=== PATIENT | male | born 1975 | race Caucasian/White ===

== ENCOUNTER → 2020-05-26 14:41 | Outpatient (BNVA) | payer BC, SELFPAY | PROVIDERS: PCP Internal Medicine; Visit Provider Internal Medicine Cardiovascular Disease | DX: R07.89 Other chest pain (principal); R06.00 Dyspnea, unspecified | CPT/HCPCS: 93005 ==

== ENCOUNTER 2020-06-10 15:07 | Outpatient (REF) | payer BC, SELFPAY ==
[2020-06-10 15:31] LABS: MANUAL DIFF FLAG NO
[2020-06-10 15:35] LABS: Basophils Absolute Auto 0.1 X10*3/uL (0.0-0.2); Basophils Percent Auto 0.5 % (0-2); Eosinophils Absolute Auto 0.5 X10*3/uL (0.0-0.4); Eosinophils Percent Auto 4.4 % (0-4); Hematocrit 44.7 % (42-52); Hemoglobin 15.5 g/dl (14.0-18.0); Imm Gran Abs Auto 0.04 X10*3/uL (0.00-0.03); Imm Gran Pct Auto 0.3 % (0.0-0.4); Lymphocytes Absolute Auto 4.6 X10*3/uL (1.2-4.9); Lymphocytes Percent Auto 36.8 % (20-40); Mean Corpuscular HGB Conc 34.7 g/dl (31.0-36.0); Mean Corpuscular Hemoglobin 30.5 pg (27.0-33.0); Mean Platelet Volume 9.5 fL (9.4-12.4); Monocytes Absolute Auto 0.9 X10*3/uL (0.1-1.2); Monocytes Percent Auto 6.9 % (2-11); Neutrophils Absolute Auto 6.3 X10*3/uL (2.0-8.3); Neutrophils Percent Auto 51.1 % (45-73); Platelet Count 330 X10*3/uL (160-400); Red Blood Count 5.08 X10*6/uL (4.60-5.80); White Blood Count 12.4 X10*3/uL (4.8-10.8)
[2020-06-10 15:57] LABS: Alanine Aminotransferase 62 U/L (0-40); Albumin Level 4.8 g/dL (3.5-5.0); Alkaline Phosphatase 47 U/L (39-117); Anion Gap 13 (12-20); Aspartate Amino Transferase 29 U/L (5-37); Bilirubin Total 0.5 mg/dL (0.0-1.0); Blood Urea Nitrogen 18 mg/dL (9-16); Calcium 9.7 mg/dL (8.4-10.2); Carbon Dioxide 27 mmol/L (22-29); Chloride 106 mmol/L (96-108); Cholesterol 236 mg/dL; Estimated Glomerular Filt Rate > 60; Glucose Random 89 mg/dL (60-115); HDL Cholesterol 42 mg/dL; LDL Cholesterol Calculated 135 mg/dl; Sodium 142 mmol/L (135-145); Total Protein 7.4 g/dL (6.5-8.0); Triglycerides 295 mg/dL
[2020-06-10 16:05] LABS: Glucose Urine UA NEG (NEG); Leukocyte Esterase Urine NEG (NEG); Nitrite Urine NEG (NEG); PH 5.5 (5.0-8.0); Specific Gravity - Urine 1.025 (1.005-1.025); Urine Blood NEG (NEG); Urine Ketones NEG (NEG); Urine Protein NEG (NEG-TRACE)
[2020-06-10 16:18] LABS: Prostate Specific Antigen 0.63 ng/mL (<0.05-4.0)
[2020-06-10 16:46] LABS: Appearance Urine CLEAR; Color Urine YELLOW
== END 2020-06-10 15:08 | disposition home or self-care (01) ==
LOC: HO.LAB 15:07
PROVIDERS: PCP Internal Medicine; Visit Provider Internal Medicine
DX: Z00.00 Encounter for general adult medical examination without abnormal findings (principal); D72.828 Other elevated white blood cell count; E78.00 Pure hypercholesterolemia, unspecified; Z12.5 Encounter for screening for malignant neoplasm of prostate
CPT/HCPCS: 36415; 80053; 80061; 81003; 84153; 85025

== ENCOUNTER 2020-07-10 16:28 | Outpatient (REF) | payer BC, SELFPAY ==
[2020-07-10 17:02] LABS: MANUAL DIFF FLAG NO
[2020-07-10 17:07] LABS: Basophils Percent Auto 0.4 % (0-2); Eosinophils Absolute Auto 0.5 X10*3/uL (0.0-0.4); Eosinophils Percent Auto 4.9 % (0-4); Hematocrit 42.7 % (42-52); Hemoglobin 14.4 g/dl (14.0-18.0); Imm Gran Abs Auto 0.04 X10*3/uL (0.00-0.03); Imm Gran Pct Auto 0.4 % (0.0-0.4); Lymphocytes Absolute Auto 4.4 X10*3/uL (1.2-4.9); Lymphocytes Percent Auto 40.8 % (20-40); Mean Corpuscular HGB Conc 33.7 g/dl (31.0-36.0); Mean Corpuscular Hemoglobin 29.9 pg (27.0-33.0); Mean Corpuscular Volume 88.6 fL (80-98); Mean Platelet Volume 9.7 fL (9.4-12.4); Monocytes Absolute Auto 0.8 X10*3/uL (0.1-1.2); Monocytes Percent Auto 7.1 % (2-11); Neutrophils Percent Auto 46.4 % (45-73); Platelet Count 293 X10*3/uL (160-400); Red Blood Count 4.82 X10*6/uL (4.60-5.80); Red Cell Distribution Width 11.9 % (11.0-16.0); White Blood Count 10.8 X10*3/uL (4.8-10.8)
== END 2020-07-10 16:29 | disposition home or self-care (01) ==
LOC: HO.LAB 16:28
PROVIDERS: PCP Internal Medicine; Visit Provider Internal Medicine
DX: D72.829 Elevated white blood cell count, unspecified (principal)
CPT/HCPCS: 36415; 85025

== ENCOUNTER 2021-06-11 11:53 | Outpatient (REF) | payer BC, SELFPAY ==
[2021-06-11 11:56] LABS: MANUAL DIFF FLAG NO
[2021-06-11 12:08] LABS: Basophils Absolute Auto 0.1 X10*3/uL (0.0-0.2); Basophils Percent Auto 0.5 % (0-2); Eosinophils Absolute Auto 0.5 X10*3/uL (0.0-0.4); Eosinophils Percent Auto 4.5 % (0-4); Hematocrit 44.5 % (42.0-52.0); Imm Gran Abs Auto 0.03 X10*3/uL (0.00-0.03); Imm Gran Pct Auto 0.3 % (0.0-0.4); Lymphocytes Absolute Auto 3.9 X10*3/uL (1.2-4.9); Lymphocytes Percent Auto 37.5 % (20-40); Mean Corpuscular HGB Conc 33.7 g/dl (31.0-36.0); Mean Corpuscular Hemoglobin 29.8 pg (27.0-33.0); Mean Corpuscular Volume 88.5 fL (80.0-98.0); Monocytes Absolute Auto 0.7 X10*3/uL (0.1-1.2); Neutrophils Absolute Auto 5.2 x10*3/uL (2.0-8.3); Neutrophils Percent Auto 50.2 % (45-73); Platelet Count 315 X10*3/uL (160-400); Red Blood Count 5.03 X10*6/uL (4.60-5.80); Red Cell Distribution Width 12.4 % (11.0-16.0); White Blood Count 10.3 X10*3/uL (4.8-10.8)
[2021-06-11 12:09] LABS: Appearance Urine HAZY; Color Urine YELLOW; Glucose Urine UA NEG (NEG); Leukocyte Esterase Urine NEG (NEG); Nitrite Urine NEG (NEG); Specific Gravity - Urine 1.025 (1.005-1.025); Urine Blood NEG (NEG); Urine Ketones NEG (NEG); Urine Protein NEG (NEG-TRACE)
[2021-06-11 12:45] LABS: Alanine Aminotransferase 56 U/L (0-40); Albumin Level 4.5 g/dL (3.5-5.0); Alkaline Phosphatase 48 U/L (39-117); Anion Gap 12 (12-20); Aspartate Amino Transferase 31 U/L (5-37); Bilirubin Total 1.1 mg/dL (0.0-1.0); Blood Urea Nitrogen 20 mg/dL (9-16); Calcium 9.8 mg/dL (8.4-10.2); Carbon Dioxide 28 mmol/L (22-29); Chloride 103 mmol/L (96-108); Cholesterol 208 mg/dL; Estimated Glomerular Filt Rate > 60; Glucose Fasting 93 mg/dL (60-99); HDL Cholesterol 41 mg/dL; LDL Cholesterol Calculated 145 mg/dl; Potassium 4.3 mmol/L (3.3-5.1); Sodium 139 mmol/L (135-145); Total Protein 7.1 g/dL (6.5-8.0); Triglycerides 111 mg/dL
[2021-06-11 13:08] LABS: PSA,Total (Free>4and<10) 0.75 ng/mL (0.00-4.00)
== END 2021-06-11 11:54 | disposition home or self-care (01) ==
LOC: HO.LNP 11:53
PROVIDERS: PCP Internal Medicine; Visit Provider Internal Medicine
DX: Z00.00 Encounter for general adult medical examination without abnormal findings (principal); Z12.5 Encounter for screening for malignant neoplasm of prostate; D72.829 Elevated white blood cell count, unspecified; E78.00 Pure hypercholesterolemia, unspecified; J45.20 Mild intermittent asthma, uncomplicated
CPT/HCPCS: 80053; 80061; 81003; 84153; 85025

== ENCOUNTER 2021-11-12 16:20 | Outpatient (REF) | payer BC, SELFPAY | END 2021-11-12 16:21 | disposition home or self-care (01) | LOC: HO.LNP 16:20 | PROVIDERS: Visit Provider Surgery | DX: L08.9 Local infection of the skin and subcutaneous tissue, unspecified (principal); L72.3 Sebaceous cyst; L02.31 Cutaneous abscess of buttock | CPT/HCPCS: 10060; 87071; 87077; 87186; 87205 ==

== ENCOUNTER 2022-06-17 10:38 | Outpatient (REF) | payer BC, SELFPAY ==
[2022-06-17 10:47] LABS: MANUAL DIFF FLAG NO
[2022-06-17 11:12] LABS: Basophils Absolute Auto 0.1 X10*3/uL (0.0-0.2); Basophils Percent Auto 0.7 % (0-2); Eosinophils Absolute Auto 0.4 X10*3/uL (0.0-0.4); Eosinophils Percent Auto 3.7 % (0-4); Hematocrit 45.2 % (42.0-52.0); Hemoglobin 15.2 g/dl (14.0-18.0); Imm Gran Abs Auto 0.02 X10*3/uL (0.00-0.03); Imm Gran Pct Auto 0.2 % (0.0-0.4); Lymphocytes Percent Auto 40.1 % (20-40); Mean Corpuscular HGB Conc 33.6 g/dl (31.0-36.0); Mean Corpuscular Hemoglobin 29.7 pg (27.0-33.0); Mean Corpuscular Volume 88.5 fL (80.0-98.0); Mean Platelet Volume 10.2 fL (9.4-12.4); Monocytes Absolute Auto 0.8 X10*3/uL (0.1-1.2); Monocytes Percent Auto 8.1 % (2-11); Neutrophils Absolute Auto 4.7 x10*3/uL (2.0-8.3); Neutrophils Percent Auto 47.2 % (45-73); Platelet Count 305 X10*3/uL (160-400); Red Blood Count 5.11 X10*6/uL (4.60-5.80); Red Cell Distribution Width 12.2 % (11.0-16.0)
[2022-06-17 11:17] LABS: Appearance Urine Clear; Color Urine Yellow; Glucose Urine UA Negative (Negative); Leukocyte Esterase Urine Negative (Negative); Nitrite Urine Negative (Negative); Urine Blood Negative (Negative); Urine Ketones Negative (Negative); Urine Protein Negative (Neg-Trace)
[2022-06-17 11:37] LABS: Alanine Aminotransferase 47 U/L (0-40); Albumin Level 4.6 g/dL (3.5-5.0); Alkaline Phosphatase 45 U/L (39-117); Anion Gap 14 (12-20); Aspartate Amino Transferase 28 U/L (5-37); Bilirubin Total 1.1 mg/dL (0.0-1.0); Blood Urea Nitrogen 19 mg/dL (9-16); Calcium 9.4 mg/dL (8.4-10.2); Carbon Dioxide 28 mmol/L (22-29); Chloride 105 mmol/L (96-108); Cholesterol 223 mg/dL; Estimated Glomerular Filt Rate > 60; Glucose Fasting 91 mg/dL (60-99); HDL Cholesterol 44 mg/dL; LDL Cholesterol Calculated 161 mg/dl; Potassium 4.5 mmol/L (3.3-5.1); Sodium 142 mmol/L (135-145); Triglycerides 92 mg/dL
[2022-06-17 11:42] LABS: PSA,Total (Free>4and<10) 0.55 ng/mL (0.00-4.00)
== END 2022-06-17 10:39 | disposition home or self-care (01) ==
LOC: HO.LNP 10:38
PROVIDERS: Visit Provider Internal Medicine
DX: Z00.00 Encounter for general adult medical examination without abnormal findings (principal); Z12.5 Encounter for screening for malignant neoplasm of prostate; D72.829 Elevated white blood cell count, unspecified; E78.00 Pure hypercholesterolemia, unspecified; I10 Essential (primary) hypertension
CPT/HCPCS: 80053; 80061; 81003; 84153; 85025

== ENCOUNTER 2022-06-28 09:22 | Day surgery (SDC) | payer BC, SELFPAY ==
--- NOTE | 2022-06-25 10:44 | P.CONAN_ITS ---
Documented by User: Soco Butts NP 06/25/22 10:45 HPI - Anesthesia Eval Consult details Narrative: 47yo M for Colonoscopy PMF Active Problems Active Problems: All Active Problems (Updated 11/12/21 @ 16:17 by Omar Zimmerman MD) Left buttock abscess (Acute) Chest tightness (Acute) Dyspnea (Acute) Family History Family History Mother Heart disease Ovarian cancer Father CHF (congestive heart failure) Surgical History Surgical History History of back surgery Social History Social History Alcohol intake: current Advance Directives: No Advance Directives Information Provided: Yes Meds Allergies Allergy/AdvReac Type Severity Reaction Status Date / Time No Known Allergies Allergy Verified 11/19/21 15:29 Home Medications Medication Instructions Recorded Confirmed Last Taken Type alpha lipoic acid 50 mg capsule 50 mg PO DAILY 05/26/20 11/19/21 Unknown History astaxanthin 4 mg capsule mg PO 05/26/20 11/19/21 Unknown History coenzyme Q10 10 mg capsule (Co 10 mg PO DAILY 05/26/20 11/19/21 Unknown History Q-10) lutein 20 mg-zeaxanthin 1,000 mcg cap PO 05/26/20 11/19/21 Unknown History capsule multivitamin 1 tab PO DAILY 05/26/20 11/19/21 Unknown History omega-3 fatty acids 1,000 mg 1,000 mg PO DAILY 05/26/20 11/19/21 Unknown History capsule (Fish Oil Concentrate) vitamin K2 100 mcg capsule See Rx Instructions PO DAILY 05/26/20 11/19/21 Unknown History Exam Exam Date and Time: June 25, 2022 1044 Assessment and Plan Assessment Anesthesia Assessment: Chart Reviewed Documented by User: Paulie Chandler MD 06/28/22 10:16 PMFSH Family History Family History Mother Heart disease Ovarian cancer Father CHF (congestive heart failure) Family history of problems with anesthesia: No Surgical History Surgical History History of back surgery History of Problems with Anesthesia: No Social History Social History Alcohol intake: current Advance Directives: No Advance Directives Information Provided: Yes Meds Allergies Allergy/AdvReac Type Severity Reaction Status Date / Time No Known Allergies Allergy Verified 11/19/21 15:29 Home Medications Medication Instructions Recorded Confirmed Last Taken Type alpha lipoic acid 50 mg capsule 50 mg PO DAILY 05/26/20 11/19/21 Unknown History astaxanthin 4 mg capsule mg PO 05/26/20 11/19/21 Unknown History coenzyme Q10 10 mg capsule (Co 10 mg PO DAILY 05/26/20 11/19/21 Unknown History Q-10) lutein 20 mg-zeaxanthin 1,000 mcg cap PO 05/26/20 11/19/21 Unknown History capsule multivitamin 1 tab PO DAILY 05/26/20 11/19/21 Unknown History omega-3 fatty acids 1,000 mg 1,000 mg PO DAILY 05/26/20 11/19/21 Unknown History capsule (Fish Oil Concentrate) vitamin K2 100 mcg capsule See Rx Instructions PO DAILY 05/26/20 11/19/21 Unknown History Exam Airway Mallampati Class: II TM Dist: >3cm Neck ROM: Full Heart: rrr Lungs: cta Assessment and Plan Final Anesthetic Review Family History of Problems with Anesthesia: No History of Problems with Anesthesia: No NPO: Yes ASA Class: II Final Preanesthetic Review: No Changes in Pt Med Stat, Meds/Allgs Chart Reviewed, Consent Obtained/Reviewed and Anes Risks/Benef Reviewed Patient Risk: Low Procedure Risk: Low Anesthetic Plan Anesthetic Plan: MAC: Disposition: Standard PACU
[2022-06-28 10:40] VITALS: BP 136/90; PULSE 65; RESP 16; TEMP 36.4; O2SAT 97; BMI 28.2
[2022-06-28] MEDS: Lactated Ringers 1,000 ML 100 ML IVCONT (10:43)
--- NOTE | 2022-06-28 11:46 | P.BOP_ITS ---
Brief Operative Note Date of Service: 06/28/22 Pre-op diagnosis: Screening Post-op diagnosis: other (Mild diverticulosis) Procedure: Colonoscopy to the cecum and TI Surgeon: Tyree Bravo Anesthesia: MAC Was an Composition Professor used for this Procedure?: No Estimated blood loss (mL): 0 Pathology: none sent Condition: stable Disposition: PACU
[2022-06-28 11:48] VITALS: BP 114/79; PULSE 78; RESP 16; TEMP 36.3; O2SAT 98
[2022-06-28 12:03] VITALS: BP 154/89; PULSE 60; RESP 16; TEMP 36.2; O2SAT 97
--- NOTE | 2022-06-28 12:56 | OP_ITS ---
SURGEON: Tyree Bravo MD INDICATIONS: The patient presents for evaluation of colorectal cancer screening. Full consent has been obtained from him for this, including risks of bleeding and perforation. PREOPERATIVE DIAGNOSIS: Colorectal cancer screening. POSTOPERATIVE DIAGNOSIS: Colorectal cancer screening, mild diverticulosis, and small internal hemorrhoids. PROCEDURE PERFORMED: Colonoscopy to the cecum and terminal ileum. ESTIMATED BLOOD LOSS: COMPLICATIONS: ANESTHESIA: Monitored anesthesia care. ASSISTANTS: SPECIMENS: DESCRIPTION OF PROCEDURE: The patient was placed in the left lateral decubitus position. The digital rectal exam revealed no abnormalities. The Olympus video pediatric colonoscope was then entered into the rectum and advanced easily to the cecum. Once in the cecum, I did identify normal-appearing cecal pouch with appendiceal orifice and a normal-appearing ileocecal valve. The terminal ileum was cannulated and appeared normal. The scope was withdrawn back in the colon. The entire cecum and ileocecal valve appeared normal. The scope was slowly withdrawn assessing all mucosal surfaces carefully. Preparation was excellent. I did not visualize any sign of polyps, colitis nor angiodysplasia. There was a mild amount of sigmoid diverticulosis. In the rectum, the scope was retroflexed visualizing small internal hemorrhoids, but no other pathology. The rectal mucosa appeared normal. The scope was straightened and withdrawn from the patient. He tolerated the procedure well and was returned to the recovery area in stable condition. IMPRESSION: 1. Mild sigmoid diverticulosis. 2. Small internal hemorrhoids. PLAN: Given today's negative exam and negative family history, I would recommend a followup colonoscopy in 10 years for further screening. He will otherwise see me on a p.r.n. basis. MD [facility]/ALICIAL / [phone] MTDDarshana
== END 2022-06-28 12:47 | disposition home or self-care (01) ==
PROVIDERS: PCP Internal Medicine; Visit Provider Internal Medicine
PROC: 0DJD8ZZ Inspection of Lower Intestinal Tract, Via Natural or Artificial Opening Endoscopic (ICD-10-PCS; CPT 45378; principal; 2022-06-28 10:30)
DX: Z12.11 Encounter for screening for malignant neoplasm of colon (principal); K57.30 Diverticulosis of large intestine without perforation or abscess without bleeding; K64.8 Other hemorrhoids; Z87.891 Personal history of nicotine dependence
CPT/HCPCS: 45378

== ENCOUNTER → 2023-05-04 10:27 | Outpatient (REF) | payer BC, SELFPAY ==
--- NOTE | 2023-05-04 10:34 | CA_ITS ---
Acquisition Time: 2023-05-04 11:25:41 Total Exercise Time: 00:09:30 Test Indications: SOB Medications: SEE H Protocol: ERIN Max HR: 155 BPM 90% of Pred: 171 BPM Max BP: 180/078 mmHG Max Work Load: 10.8 METS Exercise stress test exercise 9 min 30 sec of Erin protocol achieving 90% MPHR, without anginal symptoms, without arrhythmias, with normotensive response to exercise, with EKG changes leads 1, 2, 3, aVR, aVF, V3-V6, scooping aVL. Test reviewed with Dr. Brunner. Referred By: Ab Barraza Overread By: Ina Nava
== END ==
LOC: HO.CARD 10:27
PROVIDERS: PCP Internal Medicine; Visit Provider Internal Medicine
DX: R06.02 Shortness of breath (principal)
CPT/HCPCS: 93017

== ENCOUNTER → 2023-05-04 10:34 | Outpatient (BNV) | payer BC, SELFPAY | PROVIDERS: PCP Internal Medicine; Visit Provider Nurse Practitioner | DX: R06.02 Shortness of breath (principal) | CPT/HCPCS: 93016; 93018 ==

== ENCOUNTER 2023-05-11 12:58 | Outpatient (AMB) | payer BC, SELFPAY ==
--- NOTE | 2023-05-11 13:00 | MHC.OFFVIS ---
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 He does not have any history of coronary artery disease or myocardial infarction or cardiomyopathy or in fact anything cardiac issues. He states that for the last 6 months ago or so, he has been noticing some shortness of breath with activity. He is also 'feels his heart', but very vague description. He does not have any clear-cut chest pains or any definitive anginal-type complaints. On occasion, he has noticed a chest pressure but even that is not a truly accurate description. He has never felt this during any physical activity. Otherwise, he states that he is in lot of stress as he is single parent and has 11-year-old daughter. Unclear how much that plays a role. He is on lisinopril that was started few months back because of elevated blood pressure. Again not clear if it is from stress or not. [facility] Surgical History History of back surgery Family History Mother Heart disease Ovarian cancer Father CHF (congestive heart failure) Social History Alcohol intake: current Patient Tobacco Use Status: Former Tobacco user Review of Systems Const Denies chills, Denies daytime sleepiness, Denies fatigue, Denies fever(s), Denies frequent falls, Denies night sweats, Denies snoring, Denies weakness, Denies weight gain and Denies weight loss Eyes Denies loss of vision ENT Denies dizziness and Denies hearing loss Card Denies chest pain, Denies chest pain with activity, Denies syncope, Denies rapid heart rate, Denies edema, Denies claudication, Denies leg edema, Denies lightheadedness, Denies palpitations, Denies dyspnea, Denies dyspnea on exertion and Denies orthopnea Resp Denies cough, Denies excessive phlegm production, Denies dyspnea, Denies dyspnea on exertion, Denies snoring and Denies wheezing GI Denies abdominal pain, Denies hematochezia, Denies change in bowel habits, Denies change in stool character, Denies heartburn, Denies nausea and Denies vomiting Denies hematuria, Denies dysuria and Denies urinary frequency Musc Denies arthralgias, Denies muscle weakness, Denies numbness and Denies tingling Skin/Breast Denies nail changes and Denies rash Neuro Denies Abnormal speech present, Denies dizziness, Denies syncope, Denies frequent falls, Denies loss of vision, Denies memory loss, Denies numbness, Denies tingling and Denies weakness Psych Denies depression and Denies memory loss Endo Denies fatigue and Denies palpitations Aller/Immun Denies wheezing Physical Exam Vital Signs: Last Vital Signs Pulse 72 05/11/23 13:04 BP 118/84 05/11/23 13:04 BMI result Body Mass Index 29.3 Const General: comfortable and no acute distress Orientation/consciousness: patient oriented x3 HEENT Other: Unremarkable Head: Yes normal to inspection Neck Neck: Yes normal visual inspection Chest Chest palpation & inspection: normal inspection of the chest Resp Auscultation: clear to auscultation bilaterally Cardio Palpation: normal PMI Heart sounds: S1 normal heart sound present, S2 normal heart sound present, no gallops, no murmurs and no rubs GI Palpation (GI): Soft to palpation Back/Spine/Pelvis Other: unremarkable Skin General skin exam: no rashes or lesions noted Neuro General: patient oriented x3 Speech: No Abnormal speech present Extrem General: Yes normal to inspection Psych Mental Status: mental status grossly normal Office Procedures EKG Details: EKG with sinus rhythm at 72/Min; nonspecific ST-[place] changes; [place] [id number], Complete Assessment & Plan Assessment & Plan (1) SOB (shortness of breath): Code(s): R06.02 - Shortness of breath (2) Chest pressure: Code(s): R07.89 - Other chest pain Plan In the exercise stress test, he was able to exercise for 9:30 minutes on Avi protocol and reached 10.8 Mets. Reached 90% of max predicted heart rate. Appropriate blood pressure response. No angina. There was ST depression suggestive of ischemia. Overall, good exercise tolerance on Avi treadmill test with no angina but abnormal EKG findings. He needs further workup to assess for any ischemic heart disease. Recommend a coronary CTA. With regard to shortness of breath with activity, unclear reason. We will get an echocardiogram for LV function assessment and any diastolic dysfunction or other abnormalities. While workup is in progress, advised him to cut back on his physical activity and not do anything strenuous. Follow-up after the above. Orders: Orders CA echo transthoracic complete Today I25.10 - Atherosclerotic heart disease of [place] coronary artery without angina pectoris, R06.02 - Shortness of breath, R07.89 - Other chest pain CT Cardiac Coronary Angio Today I25.10 - Atherosclerotic heart disease of [place] coronary artery without angina pectoris, R07.89 - Other chest pain Basic Metabolic Panel Today R07.89 - Other chest pain Coding Level of Care Code New Pt Level 4 (59494) Diagnoses SOB (shortness of breath) R06.02 Chest pressure R07.89 CPT Codes EKG - CPT: 88852-[id number], Complete ([id number])
[2023-05-11 13:04] VITALS: BP 118/84; PULSE 72; BMI 29.3
== END 2023-05-11 13:39 | disposition home or self-care (01) ==
PROVIDERS: PCP Internal Medicine; Visit Provider Internal Medicine
DX: R06.02 Shortness of breath (principal); R07.89 Other chest pain
CPT/HCPCS: 93010; 99204

== ENCOUNTER → 2023-05-11 12:58 | Outpatient (BNVA) | payer BC, SELFPAY | PROVIDERS: PCP Internal Medicine; Visit Provider Internal Medicine | DX: R06.02 Shortness of breath (principal); R07.89 Other chest pain | CPT/HCPCS: 93005 ==

== ENCOUNTER 2023-06-21 11:07 | Outpatient (REF) | payer BC, SELFPAY ==
[2023-06-21 11:11] LABS: MANUAL DIFF FLAG NO
[2023-06-21 11:59] LABS: Basophils Absolute Auto 0.1 X10*3/uL (0.0-0.2); Basophils Percent Auto 0.5 % (0-2); Eosinophils Absolute Auto 0.4 X10*3/uL (0.0-0.4); Hematocrit 44.3 % (42.0-52.0); Hemoglobin 15.2 g/dl (14.0-18.0); Imm Gran Abs Auto 0.02 X10*3/uL (0.00-0.03); Imm Gran Pct Auto 0.2 % (0.0-0.4); Lymphocytes Percent Auto 42.8 % (20-40); Mean Corpuscular HGB Conc 34.3 g/dl (31.0-36.0); Mean Corpuscular Hemoglobin 29.7 pg (27.0-33.0); Mean Corpuscular Volume 86.7 fL (80.0-98.0); Mean Platelet Volume 10.1 fL (9.4-12.4); Monocytes Absolute Auto 0.6 X10*3/uL (0.1-1.2); Monocytes Percent Auto 6.6 % (2-11); Neutrophils Absolute Auto 4.3 x10*3/uL (2.0-8.3); Neutrophils Percent Auto 45.9 % (45-73); Platelet Count 325 X10*3/uL (160-400); Red Blood Count 5.11 X10*6/uL (4.60-5.80); White Blood Count 9.5 X10*3/uL (4.8-10.8)
[2023-06-21 12:06] LABS: Appearance Urine Clear; Color Urine Yellow; Glucose Urine UA Negative (Negative); Leukocyte Esterase Urine Negative (Negative); Nitrite Urine Negative (Negative); PH 5.5 (5.0-9.0); Specific Gravity - Urine 1.025 (1.005-1.025); Urine Blood Negative (Negative); Urine Ketones Negative (Negative); Urine Protein Negative (Neg-Trace)
[2023-06-21 12:11] LABS: Bacteria Urine None Seen (None Seen); Hyaline Casts Urine 0-2 /LPF (0-2); RBC Urine 0-2 /HPF (0-2); Squamous Epithelial Cell Urine 0-2 /HPF (0-2); WBC Urine 0-5 /HPF (0-5)
[2023-06-21 12:25] LABS: PSA,Total (Free>4and<10) 0.59 ng/mL (0.00-4.00)
[2023-06-21 13:16] LABS: Alanine Aminotransferase 47 U/L (0-40); Albumin Level 4.7 g/dL (3.5-5.0); Alkaline Phosphatase 43 U/L (39-117); Anion Gap 15 (12-20); Aspartate Amino Transferase 29 U/L (5-37); Bilirubin Total 0.7 mg/dL (0.0-1.0); Blood Urea Nitrogen 18 mg/dL (9-16); Calcium 9.9 mg/dL (8.4-10.2); Carbon Dioxide 26 mmol/L (22-29); Chloride 105 mmol/L (96-108); Cholesterol 220 mg/dL (<200); Estimated Glomerular Filt Rate > 60; Glucose Fasting 86 mg/dL (60-99); HDL Cholesterol 46 mg/dL (>40); LDL Cholesterol Calculated 153 mg/dL (<100); Potassium 4.5 mmol/L (3.3-5.1); Sodium 141 mmol/L (135-145); Total Protein 7.6 g/dL (6.5-8.0); Triglycerides 106 mg/dL (<150)
== END 2023-06-21 11:08 | disposition home or self-care (01) ==
LOC: HO.LNP 11:07
PROVIDERS: Visit Provider Internal Medicine
DX: Z00.00 Encounter for general adult medical examination without abnormal findings (principal); Z12.5 Encounter for screening for malignant neoplasm of prostate; E78.00 Pure hypercholesterolemia, unspecified; I10 Essential (primary) hypertension; D72.829 Elevated white blood cell count, unspecified
CPT/HCPCS: 80053; 80061; 81001; 84153; 85025

== ENCOUNTER → 2023-06-23 09:25 | Outpatient (REF) | payer BC, SELFPAY ==
--- NOTE | 2023-06-23 09:29 | CA_ITS ---
Transthoracic Echocardiogram Patient (Last, First, Middle): Jose Rivera, Gender: Male Date of : 1975 Age: 48 Procedure Date: 06/23/2023 Procedure Type: Transthoracic Echocardiogram Location: OP Height: 182.88 cm Weight: 100.7 kg BSA: 2.23 m2 Heart Rate: bpm BP: 110 / 74 mmHg Bankman: SUSANA Referring MD: Royer Brunner MD Core Man: Abhinav Guerrier MD Symptoms: I25.10 - Atherosclerotic heart disease of [place] coronary artery without... Study Quality: Adequate with contrast ECG Rhythm: Sinus Conclusions: - Essentially normal study Findings Procedure Information Contrast agent, definity, is being given per protocol without apparent complications. Left Ventricle Normal left ventricular size, thickness, and systolic function. The visually estimated ejection fraction is between 65-70%. Spectral Doppler is indicative of a normal filling pattern. Right Ventricle Normal right ventricular cavity size and systolic function. Atria Both atria are normal in size. Interatrial shunt cannot be excluded. Aortic Valve The aortic valve structure and function is likely normal. There is no aortic valve stenosis. There is no aortic valve regurgitation. Mitral Valve Normal mitral valve structure and function. There is trace mitral valve regurgitation. There is no mitral valve stenosis. Pulmonic Valve The pulmonic valve is likely normal. Tricuspid Valve Normal tricuspid valve structure. There is trace tricuspid valve regurgitation. The right ventricular systolic pressure is normal. The right ventricular systolic pressure is 22 mmHg. Normal right atrial pressure. There is no evidence of pulmonary hypertension. Great Vessels All visible segments of the aorta are normal in size. The pulmonary artery was not well visualized. There is no dilatation of the ascending aorta measuring 3.40 cm. Venous The inferior vena cava is normal in size and collapses greater than 50% with inspiration. Pericardium/Pleural There is no evidence of pericardial effusion. Prior Study Comparison No prior study available for comparison. Measurements 2D Linear Measurements IVSd: 1.34 0.6-0.9/0.6-1.0 cm LVIDd: 4.48 3.9-5.3/4.2-5.9 cm LVIDd Index: 2.01 2.4-3.2/2.2-3.1 cm/m2 LVIDs: 2.42 2.0-3.6 cm LVPWd: 1.03 0.7-1.1 cm LA Diam: 3.50 2.7-3.8/3.0-4.0 cm LAIDs Index: 1.57 1.5-2.3 cm/m2 LV Mass: 240.76 67-162/88-224 g LV Mass Index: 107.97 43-95/49-115 g/m2 LVOT Diam: 2.10 3.0+(-)1.3 cm 2D Systolic Function EF 4C: 65.10 >55% EF 2C: 71.40 >55% EF BiP: 67.70 >55% Mitral Valve MV Pk E: 0.60 MV PK A: 0.60 MV Decel Time: 305.00 E/A: 1.00 E'Lateral: 14.30 E'Medial: 7.18 E/E' Med: 8.30 E/E' Lat: 4.20 PHT: 89.00 MVA PHT: 2.47 Decel Morris: 1.95 Aortic Valve AoV Pk Martin: 1.45 AoV Mn Martin: 1.03 AoV VTI: 0.31 AoV Pk Grad: 8.00 Aov Mn Grad: 5.00 MADELYN Cont.VTI: 2.93 LVOT LVOT Pk Martin: 1.19 LVOT Mn Martin: 0.86 LVOT VTI: 0.26 LVOT Pk Grad: 6.00 LVOT Mn Grad: 3.00 LVOT Diam: 2.10 LVOT Area: 3.46 Diastolic Function MV Pk E: 0.60 MV Pk A: 0.60 E/A: 1.00 E'Medial: 7.18 E/E' Med: 8.30 E' Laterial: 14.30 E/E' Lat: 4.20 Right Ventricle TAPSE (mm): 22.30 TVS' Martin: 12.10 Tricuspid Valve TR Pk Martin: 2.19 TR Pk Grad: 19.00 RA Press: 3.00 RVSP: 22.00 Great Vessels Aorta Sinus of Valsalva: 3.38 2.0-3.[address] Ridge: 3.05 1.7-3.4 cm Ao Asc: 3.40 2.1-3.4 cm Ao Arch: 2.90 Updated in Other Vendor System with Status of Final Abhinav Guerrier MD electronically signed on 06/24/2023 4:35:24 PM with status of Final
== END ==
LOC: HO.CARD 09:25
PROVIDERS: PCP Internal Medicine; Visit Provider Internal Medicine
DX: R07.89 Other chest pain (principal); I25.10 Atherosclerotic heart disease of native coronary artery without angina pectoris; R06.02 Shortness of breath
CPT/HCPCS: 93306; Q9957

== ENCOUNTER → 2023-06-23 09:29 | Outpatient (BNV) | payer BC, SELFPAY | PROVIDERS: PCP Internal Medicine; Visit Provider Internal Medicine Cardiovascular Disease | DX: I25.10 Atherosclerotic heart disease of native coronary artery without angina pectoris (principal) | CPT/HCPCS: 93306 ==

== ENCOUNTER 2023-08-22 15:01 | Inpatient (IN) | payer BC, SELFPAY ==
--- NOTE | ~2023-08-22 | CT_ITS ---
EXAMINATION: CT ABDOMEN AND PELVIS WITH CONTRAST CLINICAL INFORMATION: Reason for Exam upper abdominal pain vomiting WBC count 21 COMPARISON: None available. TECHNIQUE: Multidetector volumetric images were obtained from the superior aspect of the liver through the pubic symphysis following administration 85 mL of Omnipaque 350 intravenous contrast. Sagittal and coronal reformatted images were obtained on the technologist's workstation. Oral contrast: No This CT examination was performed using dose optimization techniques as appropriate, variously including the following: *Automated exposure control *Adjustment of mA and/or kV according to patient size (this includes techniques or standardized protocols for targeted exams where dose is matched to indication/reason for exam; i.e. extremities or head) *Use of iterative reconstruction technique DLP: 709 mGy-cm FINDINGS: LUNG BASES: The visualized lung bases are unremarkable. Coronary artery calcifications are present. LIVER, GALLBLADDER, AND BILIARY TREE: There is hypoattenuation of the liver suggesting steatosis. No focal hepatic lesion or biliary ductal dilatation is present. Gallbladder is physiologically distended with a few gallstones. There is mild pericholecystic stranding, raising suspicion for cholecystitis. PANCREAS: Unremarkable. SPLEEN: Unremarkable. ADRENAL GLANDS: Unremarkable. KIDNEYS AND URETERS: Bilateral nephrograms are symmetric. No hydronephrosis or obstructing calculus identified. BLADDER: Unremarkable. GASTROINTESTINAL TRACT: Colonic diverticulosis is noted. Assessment for wall thickening in some segments of the colon is limited due to luminal collapse, though no significant pericolonic stranding is seen to strongly suggest a colitis. No evidence of bowel obstruction. The appendix is unremarkable. No free fluid or free air is seen. ABDOMINAL WALL: No significant hernia is appreciated. LYMPH NODES: Normal. VASCULAR: Scattered atherosclerotic calcifications. PELVIC VISCERA: Unremarkable. OSSEOUS STRUCTURES: Unremarkable. CT/CT abdomen pelvis w IV con IMPRESSION: 1. Cholelithiasis with mild pericholecystic stranding, raising suspicion for cholecystitis. This may be further assessed with ultrasound. 2. Coronary artery calcifications. Correlation with cardiac risk factors is recommended.
[2023-08-22 15:19] VITALS: BP 156/93; PULSE 80; RESP 22; TEMP 36.8; O2SAT 100; BMI 29.8
--- NOTE | 2023-08-22 15:23 | ED.GENADULT ---
HPI - General Adult General Chief complaint: General Medical Stated complaint: severe abd pain,sob Time Seen by Provider: 08/22/23 21:33 Source: patient Mode of arrival: ambulatory Limitations: no limitations History of Present Illness HPI narrative: 48 yo male with prior back surgery but through the back in 2014, HTN, occasionally smokes THC notes woke up this AM with intense upper abdominal pain with n/v and felt very weak like he would pass out. Tried maalox no relief. Has thrown up all day and pain has not subsided. He has not had BM or passed gas. This has never happened before. He started to have tingling in extremities and feeling chest tightness as well. No recent travel, exposures, abx use. MD complaint: abdominal pain n/v Onset (ago): day(s) (early this AM) Location: abdomen Radiation: non-radiation Severity: severe Quality: aching and constant Pain Consistency: constant Relieving factors: none Exacerbating factors: eating and movement Associated symptoms: chest pain, loss of appetite, malaise, nausea/vomiting and weakness Treatments prior to arrival: none Related Data Home Medications ?Medication ?Instructions ?Recorded ?Confirmed coenzyme Q10 10 mg capsule (Co 10 mg PO DAILY 05/26/20 05/11/23 Q-10) lutein 20 mg-zeaxanthin 1,000 mcg cap PO 05/26/20 05/11/23 capsule multivitamin 1 tab PO DAILY 05/26/20 05/11/23 vitamin K2 100 mcg capsule See Rx Instructions PO DAILY 05/26/20 05/11/23 lisinopril 10 mg tablet 10 mg PO DAILY 05/11/23 05/11/23 Allergies Allergy/AdvReac Type Severity Reaction Status Date / Time No Known Allergies Allergy Verified 08/22/23 15:22 Review of Systems Review of Systems: Constitutional : No Weight loss, No Fever, No Chills ENT/Mouth : No sore throat, No Rhinorrhea Eyes: No Swelling, No Redness Cardiovascular : pos Chest Pain, No SOB, NoEdema Respiratory : No Cough, No Sputum, No Wheezing Gastrointestinal : Positive Nausea, Positive Vomiting, no Diarrhea, positive abdominal Pain, No Hematochezia, No Melena Genitourinary : No Dysuria, No Urinary Frequency, No Hematuria, No Urgency Musculoskeletal : No joint pain, No Myalgias, No Joint Swelling Skin : No Skin Lesions, No rash Neuro : No Weakness, No Numbness, pos Dizziness, No Headache Psych : No Anxiety/Panic, No Depression All other systems reviewed and are negative. FOR[facility]LY [facility] Past Medical History Attestation statement: The following information was validated with the patient. Source: old records reviewed Medical History HTN (hypertension) Chest pressure Surgical History History of back surgery Family History Family History Mother Heart disease Ovarian cancer Father CHF (congestive heart failure) Social History Social History Alcohol intake: current Alcohol intake frequency: a few times a month Patient Tobacco Use Status: Former Tobacco user Smoked in Last 30 Days: No Use of substances other than those prescribed or required for medical reasons: No Advance Directives: No Advance Directives Information Provided: No Do you have a plan to hurt others: No Plan Physical Exam ED Vital Signs: Vital Signs - 24 hr 08/22/23 15:19 08/22/23 21:57 08/22/23 23:49 Temperature 98.2 F 98.5 F 99 F Pulse Rate 80 72 87 Respiratory Rate 22 H 16 16 Blood Pressure 156/93 H 156/99 H 158/93 H Pulse Oximetry 100 98 97 Oxygen Delivery Method Room Air Room Air Room Air BMI result Body Mass Index 29.8 Appearance: Alert. Oriented X3. anxious in pain mild acute distress. Eyes: Pupils equal, round and reactive to light. ENT: Pharynx dry MM Neck: Normal inspection. Neck supple. CVS: Normal heart rate and rhythm. Pulses normal. Respiratory: No respiratory distress. Breath sounds normal. Abdomen: Soft mild distention moderate diffuse ttp RUQ and epigastric area + stafford's Skin: Skin warm and dry. pale skin color. Normal skin turgor. Extremities: No lower extremity edema. No calf ttp Neuro: Oriented X 3. No motor deficit. No sensory deficit. Course Course Course Narrative: RME performed by Devora Nation PA-C. Patient is a 48 year old assigned male at presenting to the emergency department with abdominal pain, nausea, and vomiting. Patient states that the abdominal pain is in the upper abdomen that radiates into his back. Patient states that his entire body is tingling and his left arm is being squeezed. Detailed physical exam and review of systems are deferred to the neuropathologist. Labs and swabs ordered. Patient placed back in the waiting room pending room availability and results. Reevaluation(s) Reevaluation #1: EKG changed from prior but trop flat x 2 Reevaluation #2: I discussed EKG and coronary calcifications with the patient prior to admission Medications Administered Discontinued Medications Generic Name Dose Route Start Last Admin Trade Name Freq PRN Reason Stop Dose Admin Sodium Chloride 1,000 mls @ 999 mls/hr 08/22/23 21:47 08/22/23 22:08 Ns IV 08/22/23 22:47 999 mls/hr .Q1H1M ONE Administration Sodium Chloride 1,000 mls @ 999 mls/hr 08/22/23 22:00 08/22/23 22:09 Ns IV 08/22/23 23:00 999 mls/hr .Q1H1M DAVID Administration Piperacillin Sod/Tazobactam 50 mls @ 100 mls/hr 08/22/23 21:47 08/22/23 22:44 Sod 3.375 gm/ Sodium Chloride IV 08/22/23 22:16 Infused ONCE ONE Infusion Iohexol 85 ml 08/22/23 23:14 08/22/23 23:15 Iohexol 350 Mg/Ml 100 Ml Infus..Btl IV 08/22/23 23:15 85 ml ONCE ONE Administration Morphine Sulfate 4 mg 08/22/23 21:47 08/22/23 22:06 Morphine Sulfate 4 Mg/Ml Cartridge IVPUSH 08/22/23 21:48 4 mg ONCE ONE Administration Protocol Ondansetron HCl 4 mg 08/22/23 21:47 08/22/23 22:06 Ondansetron Hcl 4 Mg/2 Ml Vial IVPUSH 08/22/23 21:48 4 mg ONCE ONE Administration Pantoprazole Sodium 40 mg 08/22/23 21:47 08/22/23 22:06 Pantoprazole Sodium 40 Mg/10 Ml Vial IVPUSH 08/22/23 21:48 40 mg ONCE ONE Administration Medical Decision Making Medical Decision Making MDM Narrative: 48 yo male with prior back surgery but through the back in 2014, HTN, occasionally smokes THC notes here with c/o upper and RLQ pain with n/v and now cannot pass gas he has chest tightness and tingling he has some EKG changes but pain is mostly in this abdomen at this time given WBC count from triage and appearance I have ordered cultures, lactic acid, CT scan for bowel pathology, IV morphine for pain, IVF x 2L, IV protonix, repeat troponin and empiric zosyn x 1 dose until we can get imaging infection suspected 2146 Differential Diagnosis Differential Diagnoses: The differential diagnosis associated with the presentation includes pancreatitis, biliary colic, perforation, gastritis, viral syndrome, renal colic, SBO, appendicits atypical ACS PERC negative VTE unlikely Admission/Observation Consideration of admission/observation: Escalation of care including admission/observation considered will admit to surgery Consult Healthcare Provider Management of the patient was discussed with: Location And Measurement Technician (Dr. House to admit) Lab Data MDM Lab Attestation statement: I reviewed the patient's lab results. 08/22/23 15:38 08/22/23 15:38 Labs: Lab Results 08/22/23 08/22/23 08/22/23 Range/Units 15:36 15:38 22:02 WBC 21.1 H (4.8-10.8) X10*3/uL RBC 5.25 (4.60-5.80) X10*6/uL Hgb 15.9 (14.0-18.0) g/dl Hct 43.9 (42.0-52.0) % MCV 83.6 (80.0-98.0) fL MCH 30.3 (27.0-33.0) pg MCHC 36.2 H (31.0-36.0) g/dl RDW 11.9 (11.0-16.0) % Plt Count 343 (160-400) X10*3/uL MPV 9.4 (9.4-12.4) fL Immature Gran % (Auto) 0.3 (0.0-0.4) % Neut % (Auto) 84.8 H (45-73) % Lymph % (Auto) 10.4 L (20-40) % Early % (Auto) 4.2 (2-11) % Eos % (Auto) 0.0 (0-4) % Baso % (Auto) 0.3 (0-2) % Lymph # (Auto) 2.2 (1.2-4.9) X10*3/uL Early # (Auto) 0.9 (0.1-1.2) X10*3/uL Eos # (Auto) 0.0 (0.0-0.4) X10*3/uL Baso # (Auto) 0.1 (0.0-0.2) X10*3/uL Abs Immat Gran (auto) 0.07 H (0.00-0.03) X10*3/uL Absolute Neuts (auto) 17.9 H (2.0-8.3) x10*3/uL Absolute Nucleated RBC 0.000 (0.0-0.012) X10*3/uL Nucleated RBC % (auto) 0.0 (0.0-0.2) /100WBC PT 11.6 (11.1-13.3) SEC INR 1.0 (0.9-1.1) APTT 30.6 (26.0-36.8) SEC Sodium 140 (135-145) mmol/L Potassium 3.7 (3.3-5.1) mmol/L Chloride 106 (96-108) mmol/L Carbon Dioxide 18 L (22-29) mmol/L Anion Gap 20 (12-20) BUN 18 H (9-16) mg/dL Creatinine 0.99 (0.5-1.4) mg/dL Estim Creat Clear Calc 110.4 Estimated GFR > 60 Random Glucose 136 H (60-115) mg/dL Lactic Acid 1.6 (0.5-2.0) mmol/L Calcium 10.5 H D (8.4-10.2) mg/dL Magnesium 1.6 (1.6-2.6) mg/dL Total Bilirubin 1.2 H (0.0-1.0) mg/dL AST 26 (5-37) U/L ALT 45 H (0-40) U/L Alkaline Phosphatase 51 (39-117) U/L Troponin I High Sens < 2.7 2.8 (<3.5-35.0) ng/L Total Protein 8.0 (6.5-8.0) g/dL Albumin 4.9 (3.5-5.0) g/dL Lipase 34 (8-78) U/L Urine Color Urine Appearance Urine pH (5.0-9.0) Ur Specific [place] (1.005-1.025) Urine Protein (Neg-Trace) mg/dL Urine Glucose (UA) (Negative) mg/dL Urine Ketones (Negative) mg/dL Urine Blood (Negative) Urine Nitrite (Negative) Ur Leukocyte Esterase (Negative) Influenza Type A (PCR) NEGATIVE (Negative) Influenza Type B (PCR) NEGATIVE (Negative) RSV RNA Qual (PCR) NEGATIVE (Negative) SARS-CoV-2 RNA (RT-PCR) NEGATIVE (Negative) 08/23/23 Range/Units 01:14 WBC (4.8-10.8) X10*3/uL RBC (4.60-5.80) X10*6/uL Hgb (14.0-18.0) g/dl Hct (42.0-52.0) % MCV (80.0-98.0) fL MCH (27.0-33.0) pg MCHC (31.0-36.0) g/dl RDW (11.0-16.0) % Plt Count (160-400) X10*3/uL MPV (9.4-12.4) fL Immature Gran % (Auto) (0.0-0.4) % Neut % (Auto) (45-73) % Lymph % (Auto) (20-40) % Early % (Auto) (2-11) % Eos % (Auto) (0-4) % Baso % (Auto) (0-2) % Lymph # (Auto) (1.2-4.9) X10*3/uL Early # (Auto) (0.1-1.2) X10*3/uL Eos # (Auto) (0.0-0.4) X10*3/uL Baso # (Auto) (0.0-0.2) X10*3/uL Abs Immat Gran (auto) (0.00-0.03) X10*3/uL Absolute Neuts (auto) (2.0-8.3) x10*3/uL Absolute Nucleated RBC (0.0-0.012) X10*3/uL Nucleated RBC % (auto) (0.0-0.2) /100WBC PT (11.1-13.3) SEC INR (0.9-1.1) APTT (26.0-36.8) SEC Sodium (135-145) mmol/L Potassium (3.3-5.1) mmol/L Chloride (96-108) mmol/L Carbon Dioxide (22-29) mmol/L Anion Gap (12-20) BUN (9-16) mg/dL Creatinine (0.5-1.4) mg/dL Estim Creat Clear Calc Estimated GFR Random Glucose (60-115) mg/dL Lactic Acid (0.5-2.0) mmol/L Calcium (8.4-10.2) mg/dL Magnesium (1.6-2.6) mg/dL Total Bilirubin (0.0-1.0) mg/dL AST (5-37) U/L ALT (0-40) U/L Alkaline Phosphatase (39-117) U/L Troponin I High Sens (<3.5-35.0) ng/L Total Protein (6.5-8.0) g/dL Albumin (3.5-5.0) g/dL Lipase (8-78) U/L Urine Color Yellow Urine Appearance Clear Urine pH 5.5 (5.0-9.0) Ur Specific [place] >= 1.030 H (1.005-1.025) Urine Protein Negative (Neg-Trace) mg/dL Urine Glucose (UA) Negative (Negative) mg/dL Urine Ketones Negative (Negative) mg/dL Urine Blood Negative (Negative) Urine Nitrite Negative (Negative) Ur Leukocyte Esterase Negative (Negative) Influenza Type A (PCR) (Negative) Influenza Type B (PCR) (Negative) RSV RNA Qual (PCR) (Negative) SARS-CoV-2 RNA (RT-PCR) (Negative) Independent Interpretation I performed an independent interpretation of an: EKG and CT Scan (suspect cholecystitis) Interpretation: Rate: 67 Rhythm: NSR [place]: normal Normal P waves. Normal TYRELL. Normal QRS complex. ST T wave : no YANET, inverted t waves in I aVL, V5-V6 qTC: 448 prior studies: changed from stress test The study has been interpreted contemporaneously by me. . Radiology Impression Discussion of test interpretation with radiology: I have reviewed the radiologist's reading. Critical Care Time Critical Care Time Critical Care Time: Yes Total Critical Care Time: 60 Attestation: consult, IV morphine for pain with improvement in pain, 2L of IVF, repeat assessments, admission I attest to this time spent taking care of the patient Discharge Plan Discharge Clinical Impression: Acute cholecystitis, T wave inversion in EKG Abdominal pain Qualifiers: Abdominal location: right upper quadrant Qualified Code(s): R10.11 - Right upper quadrant pain Elevated WBC count Qualifiers: Leukocytosis type: unspecified Qualified Code(s): D72.829 - Elevated white blood cell count, unspecified Vomiting Qualifiers: Vomiting type: unspecified Nausea presence: with nausea Qualified Code(s): R11.2 - Nausea with vomiting, unspecified Patient Disposition: Admitted As Inpatient Print Language: Tajik
--- NOTE | 2023-08-22 15:24 | ECG_ITS ---
Test Reason : EPIGASTRIC PAIN Blood Pressure : / mmHG Vent. Rate : 067 BPM Atrial Rate : 067 BPM P-R Int : 120 ms QRS Dur : 104 ms QT Int : 424 ms P-R-T Axes : 015 016 110 degrees QTc Int : 448 ms Normal sinus rhythm T wave abnormality, consider lateral ischemia Abnormal ECG No previous ECGs available Referred By: Devora Nation Electronically Signed By:Wellington Kelley
[2023-08-22 15:43] LABS: MANUAL DIFF FLAG NO
[2023-08-22 15:44] LABS: Basophils Absolute Auto 0.1 X10*3/uL (0.0-0.2); Basophils Percent Auto 0.3 % (0-2); Hematocrit 43.9 % (42.0-52.0); Hemoglobin 15.9 g/dl (14.0-18.0); Imm Gran Abs Auto 0.07 X10*3/uL (0.00-0.03); Imm Gran Pct Auto 0.3 % (0.0-0.4); Lymphocytes Absolute Auto 2.2 X10*3/uL (1.2-4.9); Lymphocytes Percent Auto 10.4 % (20-40); Mean Corpuscular HGB Conc 36.2 g/dl (31.0-36.0); Mean Corpuscular Hemoglobin 30.3 pg (27.0-33.0); Mean Corpuscular Volume 83.6 fL (80.0-98.0); Mean Platelet Volume 9.4 fL (9.4-12.4); Monocytes Absolute Auto 0.9 X10*3/uL (0.1-1.2); Monocytes Percent Auto 4.2 % (2-11); Neutrophils Absolute Auto 17.9 x10*3/uL (2.0-8.3); Neutrophils Percent Auto 84.8 % (45-73); Platelet Count 343 X10*3/uL (160-400); Red Blood Count 5.25 X10*6/uL (4.60-5.80); Red Cell Distribution Width 11.9 % (11.0-16.0); White Blood Count 21.1 X10*3/uL (4.8-10.8)
[2023-08-22 15:49] LABS: Prothrombin Time 11.6 SEC (11.1-13.3)
[2023-08-22 15:51] LABS: Partial Thromboplastin Time 30.6 SEC (26.0-36.8)
[2023-08-22 16:10] LABS: Troponin-I High Sensitivity < 2.7 ng/L (<3.5-35.0)
[2023-08-22 16:13] LABS: Alanine Aminotransferase 45 U/L (0-40); Albumin Level 4.9 g/dL (3.5-5.0); Alkaline Phosphatase 51 U/L (39-117); Anion Gap 20 (12-20); Aspartate Amino Transferase 26 U/L (5-37); Bilirubin Total 1.2 mg/dL (0.0-1.0); Blood Urea Nitrogen 18 mg/dL (9-16); Calcium 10.5 mg/dL (8.4-10.2); Carbon Dioxide 18 mmol/L (22-29); Chloride 106 mmol/L (96-108); Creatinine Clr Calc Pharmacy 110.4; Estimated Glomerular Filt Rate > 60; Glucose Random 136 mg/dL (60-115); Magnesium 1.6 mg/dL (1.6-2.6); Potassium 3.7 mmol/L (3.3-5.1); Sodium 140 mmol/L (135-145)
[2023-08-22 16:21] LABS: Influenza A PCR NEGATIVE (Negative); Influenza B PCR NEGATIVE (Negative); Resp Syncy Virus RNA Qual PCR NEGATIVE (Negative); SARS COV2 PCR INHOUSE NEGATIVE (Negative)
[2023-08-22 16:33] LABS: Lipase 34 U/L (8-78)
[2023-08-22 21:57] VITALS: BP 156/99; PULSE 72; RESP 16; TEMP 36.9; O2SAT 98
[2023-08-22] MEDS: ondansetron HCL 4 MG/2 ML VIAL IVPUSH (22:06)
[2023-08-22] MEDS: Morphine Sulfate 4 MG/ML CARTRIDGE IVPUSH (22:06)
[2023-08-22] MEDS: Pantoprazole Sodium 40 MG/10 ML VIAL IVPUSH (22:06)
[2023-08-22] MEDS: 0.9 % Sodium Chloride 1,000 ML 999 ML IV ×2 (22:08→22:09)
[2023-08-22] MEDS: Piperacillin Sodium/Tazobactam 3.375 GM in 0.9 % Sodium Chloride 50 ML IV (22:14)
[2023-08-22 22:20] LABS: Lactic Acid 1.6 mmol/L (0.5-2.0)
--- NOTE | 2023-08-22 22:20 | PC.NURSE ---
pt from home, a&ox4, respirations even and unlabored, pt reporting epigastric and upper abdomen pain x3 days, reports onset of diarrhea and nausea. pt reports normal PO intake but reports today he has not been able to drink much. abdomen soft, non tender to touch. 20G placed in right AC, labs obtained and sent to lab, pt medciated per jun.
[2023-08-22 22:32] LABS: Troponin-I High Sensitivity 2.8 ng/L (<3.5-35.0)
[2023-08-22] MEDS: iohexoL 350 MG/ML 100 ML INFUS..BTL 85 ML IV (23:15)
[2023-08-22 23:49] VITALS: BP 158/93; PULSE 87; RESP 16; TEMP 37.2; O2SAT 97
[2023-08-23] VITALS (20 sets, daily range): BP systolic 141–163; BP diastolic 81–102; PULSE 74–95; RESP 16–21; TEMP 36.3–37.4; O2SAT 94–99; BMI 30.1
[2023-08-23 01:21] LABS: Appearance Urine Clear; Color Urine Yellow; Glucose Urine UA Negative (Negative); Leukocyte Esterase Urine Negative (Negative); Nitrite Urine Negative (Negative); PH 5.5 (5.0-9.0); Specific Gravity - Urine >= 1.030 (1.005-1.025); Urine Blood Negative (Negative); Urine Ketones Negative (Negative); Urine Protein Negative (Neg-Trace)
[2023-08-23] MEDS: HYDROmorphone HCl 1 MG/ML SYRINGE IVPUSH (01:51)
[2023-08-23] MEDS: 0.9 % Sodium Chloride 1,000 ML 100 ML IVCONT ×2 (03:12→15:49)
[2023-08-23] MEDS: Piperacillin Sodium/Tazobactam 3.375 GM in 0.9 % Sodium Chloride 50 ML IV ×3 (05:13→14:32)
--- NOTE | 2023-08-23 07:34 | P.HPGS_ITS ---
History of Present Illness History of Present Illness Date of Service: 08/23/23 <Analia Wallis PA-C - Last Filed: 08/23/23 09:02> 08/23/23 <Eugene House MD - Last Filed: 08/23/23 12:19> Chief complaint: acute cholecystitis <Analia Wallis PA-C - Last Filed: 08/23/23 09:02> Narrative: 48 yo male with PMH significant for HTN, hx of lumbar discectomy with posterior approach who presented to the ED with complaints of epigastric/RUQ abd pain that began yesterday. He thought it was gas pain and took maalox without improvement and it became more constant. He developed nausea with multiple episodes of vomiting. He denies similar episodes of prior pain. He denies fevers, chills, diarrhea, sick contacts back pain. He reports mild chest tightness. Due to the severity of pain he presented to the ED for work up which included CBC, BMP, LFTs which was significant for leukocytosis 21.1 and total bili of 1.2. CT scan showed a distended gallbladder, gallbladder wall thickening, mild pericholecystic stranding with biliary ductal dilatation suggestive of acute cholecystitis. CT scan also showed coronary artery calcifications. EKG with T wave inversion. Troponin <2.7. He has a family history significant for CAD, SC in his mother at age 50. He has had SOB/chest pain in the past and is followed by cardiology. He had an exercise stress test with ST depression suggestive of ischemia and was recommended to have further workup to assess for any ischemic heart disease with coronary CTA, unclear if this has been done. Recent echo in 07/09 was normal. <Analia Wallis PA-C - Last Filed: 08/23/23 09:02> Review of Systems Constitutional: Constitutional: Denies chills and Denies fever(s) <MARQUISE Stevens Last Filed: 08/23/23 09:02> ENT: Denies dizziness <Analia Wallis PA-C - Last Filed: 08/23/23 09:02> Cardiovascular: Cardiovascular: Denies palpitations and Denies dyspnea <Analia Wallis PA-C - Last Filed: 08/23/23 09:02> Respiratory: Respiratory: Denies cough and Denies dyspnea <Analia Wallis PA-C - Last Filed: 08/23/23 09:02> Gastrointestinal: Gastrointestinal: Reports as per HPI, Reports loose stools and Denies hematemesis <Analia Wallis PA-C - Last Filed: 08/23/23 09:02> Genitourinary: Genitourinary: Denies dysuria <Analia Wallis PA-C - Last Filed: 08/23/23 09:02> Integumentary/Breasts: Skin/Breast: Denies jaundice <Analia Wallis PA-C - Last Filed: 08/23/23 09:02> Neurologic: Denies dizziness <Analia Wallis PA-C - Last Filed: 08/23/23 09:02> Endocrine: Endocrine: Denies palpitations <MARQUISE Stevens Last Filed: 08/23/23 09:02> [facility] Past Medical History Medical History: Medical History HTN (hypertension) Chest pressure <MARQUISE Stevens Last Filed: 08/23/23 09:02> Family History Family History: Family History Mother Heart disease Ovarian cancer Father CHF (congestive heart failure) <MARQUISE Stevens Last Filed: 08/23/23 09:02> Surgical History Surgical History: Surgical History History of back surgery <MARQUISE Stevens Last Filed: 08/23/23 09:02> Social History Social History: Social History Alcohol intake: current Alcohol intake frequency: holidays/special occasions only Patient Tobacco Use Status: Former Tobacco user Smoked in Last 30 Days: No Use of substances other than those prescribed or required for medical reasons: Yes Substance Use Frequency: Weekly Are you DNR?: No Advance Directives: No Advance Directives Information Provided: No Do you have a plan to hurt others: No Plan Nutrition Risks: No Nutritional Risk <Analia Wallis PA-C - Last Filed: 08/23/23 09:02> Meds Allergies/Adverse reactions: Allergies Allergy/AdvReac Type Severity Reaction Status Date / Time No Known Allergies Allergy Verified 08/22/23 15:22 <Analia Wallis PA-C - Last Filed: 08/23/23 09:02> Active Medications: Current Medications Acetaminophen (Acetaminophen 325 Mg Tablet) 650 mg PO Q6H PRN PRN Reason: Pain, Mild (Pain Scale 1-3) Docusate Sodium (Docusate Sodium 100 Mg Capsule) 100 mg PO BID DAVID Hydromorphone HCl (Hydromorphone Hcl 1 Mg/Ml Syringe) 0.5 mg IVPUSH Q4H PRN; Protocol PRN Reason: Pain, Severe (Pain Scale 7-10) Sodium Chloride (Ns) 1,000 mls @ 100 mls/hr IVCONT .Q10H [facility] Last Admin: 08/23/23 03:12 Dose: 100 mls/hr Piperacillin Sod/Tazobactam (Sod 3.375 gm/ Sodium Chloride) 50 mls @ 100 mls/hr IV Q6H DAVID Ondansetron HCl (Ondansetron Hcl 4 Mg/2 Ml Vial) 4 mg IVPUSH Q6H PRN PRN Reason: nausea/vomiting Sodium Chloride (0.9 % Sodium Chloride Flush 3 Ml Syringe) 3 ml IVFLUSH QSHIFT DAVID <Analia Wallis PA-C - Last Filed: 08/23/23 09:02> Home medications: Home Medications ?Medication ?Instructions ?Recorded ?Confirmed ?Last Taken ?Type coenzyme Q10 10 mg capsule (Co 10 mg PO DAILY 05/26/20 08/23/23 08/21/23 History Q-10) multivitamin 1 tab PO DAILY 05/26/20 08/23/23 08/21/23 History lisinopril 10 mg tablet 10 mg PO DAILY 05/11/23 08/23/23 08/21/23 History Lactobacillus acidophilus 10 10,000 mmu cells PO DAILY 08/23/23 08/23/23 08/21/23 History billion cell capsule (Probiotic) atorvastatin 40 mg tablet 40 mg PO DAILY 08/23/23 08/23/2324 History <Analia MARQUISE Wallis Artis Last Filed: 08/23/23 09:02> Physical Exam Vital Signs: Vital Signs: Last Vital Signs Temp 98.8 F 08/23/23 03:42 Pulse 80 08/23/23 03:42 Resp 16 08/23/23 03:42 BP 141/87 H 08/23/23 03:42 Pulse Ox 98 08/23/23 03:42 O2 Del Method Room Air 08/23/23 03:42 BMI result Body Mass Index 29.8 <Analia Wallis PA-C Artis Last Filed: 08/23/23 09:02> Const: General: comfortable, no acute distress and alert <Analia Wallis PA-C Artis Last Filed: 08/23/23 09:02> Orientation/consciousness: patient oriented x3 <Analia Wallis PA-C Artis Last Filed: 08/23/23 09:02> Resp: Effort & Inspection: normal respiratory effort <Analia Wallis PA-C Artis Filed: 08/23/23 09:02> Cardio: Rate: regular rate <LUDMILA StevensEliza Wisdom Last Filed: 08/23/23 09:02> GI: Inspection: No distended and No scar <Analia Wallis PA-C Last Filed: 08/23/23 09:02> Palpation (GI): Soft to palpation, Tenderness to palpation present (GI) in the epigastrum, in the RUQ (marked ) and Rajan's sign positive and no guarding <Analia Wallis PA-C Artis Last Filed: 08/23/23 09:02> Percussion: Yes normal to percussion <Analia Wallis PA-C Artis Last Filed: 08/23/23 09:02> Skin: General skin exam: no rashes or lesions noted and no jaundice <Analia Wallis PA-C Artis Last Filed: 08/23/23 09:02> Neuro: General: patient oriented x3 and moves all extremities <Analia Wallis PA-C Artis Last Filed: 08/23/23 09:02> Results Results Labs: Short CBC 08/22/23 Range/Units 15:38 WBC 21.1 H (4.8-10.8) X10*3/uL Hgb 15.9 (14.0-18.0) g/dl Hct 43.9 (42.0-52.0) % Plt Count 343 (160-400) X10*3/uL BMP 08/22/23 15:38 Sodium 140 Potassium 3.7 Chloride 106 Carbon Dioxide 18 L BUN 18 H Creatinine 0.99 Calcium 10.5 H D Liver Function 08/22/23 Range/Units 15:38 Total Bilirubin 1.2 H (0.0-1.0) mg/dL AST 26 (5-37) U/L ALT 45 H (0-40) U/L Alkaline Phosphatase 51 (39-117) U/L Albumin 4.9 (3.5-5.0) g/dL Urine 08/23/23 Range/Units 01:14 Urine Color Yellow Urine Appearance Clear Urine pH 5.5 (5.0-9.0) Ur Specific [place] >= 1.030 H (1.005-1.025) Urine Protein Negative (Neg-Trace) mg/dL Urine Glucose (UA) Negative (Negative) mg/dL <Analia Wallis PA-C - Last Filed: 08/23/23 09:02> Abdomen CT scan report/results: report reviewed and image reviewed <Analia Wallis PA-C Last Filed: 08/23/23 09:02> Assessment and Plan (1) T wave inversion in EKG: Status: Acute <MARQUISE Stevens Last Filed: 08/23/23 09:02> (2) Acute cholecystitis: Status: Acute <MARQUISE Stevens Last Filed: 08/23/23 09:02> 48 yo male with PMH significant for HTN who presented to the ED with complaints of epigastric/RUQ abd pain for 1 day associated with nausea/vomiting with RUQ tenderness, positive rajan sign on exam and leukocytosis and CT scan demonstrating distended gallbladder, gallbladder wall thickening and pericholecystitic fluid suggestive of acute cholecystitis. He is admitted to the surgical service for further treatment. He continues to have severe pain. It was recommended to proceed with laparoscopic cholecystectomy, possible open. Risks, benefits, alternatives of laparoscopic possible open cholecystectomy were reviewed with the patient including but not limited to bleeding, infection, numbness, pain, poor healing, injury to the liver, bowel or bile ducts, leak, retained stones and the patient wishes to proceed.? Arrangements will be made for this.?All questions were answered. Given cardiac history, will obtain cardiology consult preoperatively. <Analia Wallis PA-C - Last Filed: 08/23/23 09:02> Quality Stroke Does the patient have a stroke diagnosis?: No <Eugene House MD - Last Filed: 08/23/23 12:19> VTE Prior VTE?: No <Eugene House MD - Last Filed: 08/23/23 12:19> VTE Risk Level:: Surgical - high <Analia Wallis PA-C - Last Filed: 08/23/23 09:02> VTE Device Contraindication: N/A - Device Ordered <Analia Wallis PA-C - Last Filed: 08/23/23 09:02> VTE Drug Contraindication: N/A - Med Ordered <Analia Wallis PA-C - Last Filed: 08/23/23 09:02> Procedures Date of Service Date of Service: 08/23/23 <Analia Wallis PA-C - Last Filed: 08/23/23 09:02> 08/23/23 <Eugene House MD - Last Filed: 08/23/23 12:19>
[2023-08-23] MEDS: ondansetron HCL 4 MG/2 ML VIAL IVPUSH ×2 (08:05→08:10)
[2023-08-23] MEDS: HYDROmorphone HCl 1 MG/ML SYRINGE 0.5 MG IVPUSH ×3 (08:09→23:52)
--- NOTE | 2023-08-23 08:17 | PC.NURSE ---
IVF running with ABX, pain meds given per jun. Pt resting quietly, with call velez in reach
--- NOTE | 2023-08-23 08:52 | PHA.MEDREC ---
Pharmacy Consult ? Medication Reconciliation Pharmacy has completed the medication reconciliation. Spoke to patient at bedside, says he takes atorvastatin and lisinopril in the morning, along with multivitamin with CoQ10 and probiotics. Patient aware if he wants to continue CoQ10 and probiotics they would need to be brought in from home.
--- NOTE | 2023-08-23 10:31 | PC.NURSE ---
Pt currently being brought to surgery by transporter.
--- NOTE | 2023-08-23 10:43 | P.CONCA_ITS ---
History of Present Illness History of Present Illness Date of Service: 08/23/23 Chief complaint: acute cholecystitis Narrative: 48-year-old gentleman who was seen in our office and underwent exercise stress test which was abnormal and he had ischemic EKG changes without any symptoms. Subsequent to that he was referred for coronary CTA which he has not completed. He has strong family history of coronary artery disease. He is now presenting for right upper quadrant abdominal pain starting yesterday which was persistent along with nausea and vomiting. His imaging and presentation is consistent with acute cholecystitis and he has been seen by surgery. He may need surgical intervention. He had CT scan performed which has coronary calcifications noted. He also has some nonspecific T-wave changes on the EKG. He is denying any chest discomfort or shortness of breath. In the preceding days he did not have any similar symptoms 2. While having severe abdominal pain he did have some chest tightness and said that he was panicking and was quite anxious. He does not get panic attacks usually. He has hypertension and hyperlipidemia and has been taking lisinopril and atorvastatin. [facility] Past Medical History Medical History HTN (hypertension) Chest pressure Family History Family History Mother Heart disease Ovarian cancer Father CHF (congestive heart failure) Surgical History Surgical History History of back surgery Social History Social History Alcohol intake: current Alcohol intake frequency: holidays/special occasions only Patient Tobacco Use Status: Former Tobacco user Smoked in Last 30 Days: No Use of substances other than those prescribed or required for medical reasons: Yes Substance Use Frequency: Weekly Are you DNR?: No Advance Directives: No Advance Directives Information Provided: No Do you have a plan to hurt others: No Plan Nutrition Risks: No Nutritional Risk Meds Allergies Allergy/AdvReac Type Severity Reaction Status Date / Time No Known Allergies Allergy Verified 08/22/23 15:22 Active Medications: Current Medications Acetaminophen (Acetaminophen 325 Mg Tablet) 650 mg PO Q6H PRN PRN Reason: Pain, Mild (Pain Scale 1-3) Atorvastatin Calcium (Atorvastatin Calcium 40 Mg Tablet) 40 mg PO DAILY DAVID Docusate Sodium (Docusate Sodium 100 Mg Capsule) 100 mg PO BID [facility] Last Admin: 08/23/23 10:28 Dose: Not Given Hydromorphone HCl (Hydromorphone Hcl 1 Mg/Ml Syringe) 0.5 mg IVPUSH Q4H PRN; Protocol PRN Reason: Pain, Severe (Pain Scale 7-10) Last Admin: 08/23/23 08:09 Dose: 0.5 mg Sodium Chloride (Ns) 1,000 mls @ 100 mls/hr IVCONT .Q10H [facility] Last Admin: 08/23/23 03:12 Dose: 100 mls/hr Piperacillin Sod/Tazobactam (Sod 3.375 gm/ Sodium Chloride) 50 mls @ 100 mls/hr IV Q6H [facility] Last Infusion: 08/23/23 08:33 Dose: Infused Lisinopril (Lisinopril 10 Mg Tablet) 10 mg PO DAILY [facility]; Protocol Ondansetron HCl (Ondansetron Hcl 4 Mg/2 Ml Vial) 4 mg IVPUSH Q6H PRN PRN Reason: nausea/vomiting Last Admin: 08/23/23 08:10 Dose: 4 mg Sodium Chloride (0.9 % Sodium Chloride Flush 3 Ml Syringe) 3 ml IVFLUSH QSHIFT [facility] Last Admin: 08/23/23 09:05 Dose: Not Given Home Medications ?Medication ?Instructions ?Recorded ?Confirmed ?Last Taken ?Type coenzyme Q10 10 mg capsule (Co 10 mg PO DAILY 05/26/20 08/23/23 08/21/23 History Q-10) multivitamin 1 tab PO DAILY 05/26/20 08/23/23 08/21/23 History lisinopril 10 mg tablet 10 mg PO DAILY 05/11/23 08/23/23 08/21/23 History Lactobacillus acidophilus 10 10,000 mmu cells PO DAILY 08/23/23 08/23/23 08/21/23 History billion cell capsule (Probiotic) atorvastatin 40 mg tablet 40 mg PO DAILY 08/23/23 08/23/23 08/21/23 History Physical Exam 2 Vital Signs: Vital Signs: Last Vital Signs Temp 98.9 F 08/23/23 08:19 Pulse 74 08/23/23 08:19 Resp 16 08/23/23 08:19 BP 145/81 H 08/23/23 08:19 Pulse Ox 98 08/23/23 03:42 O2 Del Method Room Air 08/23/23 03:42 BMI result Body Mass Index 30.1 GENERAL APPEARANCE: in no acute distress, pleasant. NECK: no carotid bruit, no jugular venous distention. SKIN: no suspicious lesions, warm and dry. HEART: no murmurs, regular rate and rhythm. LUNGS: clear to auscultation bilaterally. ABDOMEN: soft, tenderness right upper quadrant. EXTREMITIES: no edema. PERIPHERAL PULSES: equal. NEUROLOGIC: No gross deficits, AAO X 3 Objective Labs and Meds 08/22/23 15:38 08/22/23 15:38 Lab results: Laboratory Results - last 24 hr 08/22/23 08/22/23 08/22/23 15:36 15:38 22:02 WBC 21.1 H RBC 5.25 Hgb 15.9 Hct 43.9 MCV 83.6 MCH 30.3 MCHC 36.2 H RDW 11.9 Plt Count 343 MPV 9.4 Immature Gran % (Auto) 0.3 Neut % (Auto) 84.8 H Lymph % (Auto) 10.4 L [place] % (Auto) 4.2 Eos % (Auto) 0.0 Baso % (Auto) 0.3 Lymph # (Auto) 2.2 [place] # (Auto) 0.9 Eos # (Auto) 0.0 Baso # (Auto) 0.1 Abs Immat Gran (auto) 0.07 H Absolute Neuts (auto) 17.9 H Absolute Nucleated RBC 0.000 Nucleated RBC % (auto) 0.0 PT 11.6 INR 1.0 APTT 30.6 Sodium 140 Potassium 3.7 Chloride 106 Carbon Dioxide 18 L Anion Gap 20 BUN 18 H Creatinine 0.99 Estim Creat Clear Calc 110.4 Estimated GFR > 60 Random Glucose 136 H Lactic Acid 1.6 Calcium 10.5 H D Magnesium 1.6 Total Bilirubin 1.2 H AST 26 ALT 45 H Alkaline Phosphatase 51 Troponin I High Sens < 2.7 2.8 Total Protein 8.0 Albumin 4.9 Lipase 34 Urine Color Urine Appearance Urine pH Ur Specific [place] Urine Protein Urine Glucose (UA) Urine Ketones Urine Blood Urine Nitrite Ur Leukocyte Esterase Influenza Type A (PCR) NEGATIVE Influenza Type B (PCR) NEGATIVE RSV RNA Qual (PCR) NEGATIVE SARS-CoV-2 RNA (RT-PCR) NEGATIVE 08/23/23 01:14 WBC RBC Hgb Hct MCV MCH MCHC RDW Plt Count MPV Immature Gran % (Auto) Neut % (Auto) Lymph % (Auto) [place] % (Auto) Eos % (Auto) Baso % (Auto) Lymph # (Auto) [place] # (Auto) Eos # (Auto) Baso # (Auto) Abs Immat Gran (auto) Absolute Neuts (auto) Absolute Nucleated RBC Nucleated RBC % (auto) PT INR APTT Sodium Potassium Chloride Carbon Dioxide Anion Gap BUN Creatinine Estim Creat Clear Calc Estimated GFR Random Glucose Lactic Acid Calcium Magnesium Total Bilirubin AST ALT Alkaline Phosphatase Troponin I High Sens Total Protein Albumin Lipase Urine Color Yellow Urine Appearance Clear Urine pH 5.5 Ur Specific [place] >= 1.030 H Urine Protein Negative Urine Glucose (UA) Negative Urine Ketones Negative Urine Blood Negative Urine Nitrite Negative Ur Leukocyte Esterase Negative Influenza Type A (PCR) Influenza Type B (PCR) RSV RNA Qual (PCR) SARS-CoV-2 RNA (RT-PCR) Imaging Radiologist's impression: Impressions Abdomen/Pelvis CT 08/22/23 23:15 IMPRESSION: 1. Cholelithiasis with mild pericholecystic stranding, raising suspicion for cholecystitis. This may be further assessed with ultrasound. 2. Coronary artery calcifications. Correlation with cardiac risk factors is recommended. Assessment and Plan (1) T wave inversion in EKG: Status: Acute (2) Acute cholecystitis: Status: Acute Plan Pleasant 48-year-old gentleman who was getting outpatient ischemic workup. He had exercise stress test which showed ischemic changes without any symptoms during exercise with reasonably good functional capacity. He was referred for coronary CTA which is due to be done. He is presenting with acute cholecystitis. EKG has nonspecific changes currently. He has good functional capacity and is low to intermediate risk for perioperative cardiovascular complications in case he needs to go for surgery. High sensitivity troponin levels are less than 2.7 and 2.8. Presentation is due to acute cholecystitis. He can be worked up for coronary disease as outpatient as before. Thank you for allowing me to participate in the care of your patient. Please feel free to contact me if you have any questions. Procedures Date of Service Date of Service: 08/23/23
--- NOTE | 2023-08-23 10:55 | P.CONAN_ITS ---
[facility] Active Problems Active Problems: All Active Problems T wave inversion in EKG (Acute) Vomiting (Acute) Acute cholecystitis (Acute) Elevated WBC count (Acute) Abdominal pain (Acute) SOB (shortness of breath) (Acute) Left buttock abscess (Acute) Chest tightness (Acute) Dyspnea (Acute) Past Medical History Medical History HTN (hypertension) Chest pressure Family History Family History Mother Heart disease Ovarian cancer Father CHF (congestive heart failure) Family history of problems with anesthesia: No Surgical History Surgical History History of back surgery History of Problems with Anesthesia: No Social History Social History Alcohol intake: current Alcohol intake frequency: holidays/special occasions only Patient Tobacco Use Status: Former Tobacco user Smoked in Last 30 Days: No Use of substances other than those prescribed or required for medical reasons: Yes Substance Use Frequency: Weekly Are you DNR?: No Advance Directives: No Advance Directives Information Provided: No Do you have a plan to hurt others: No Plan Nutrition Risks: No Nutritional Risk Meds Allergies Allergy/AdvReac Type Severity Reaction Status Date / Time No Known Allergies Allergy Verified 08/22/23 15:22 Active Medications: Current Medications Acetaminophen (Acetaminophen 325 Mg Tablet) 650 mg PO Q6H PRN PRN Reason: Pain, Mild (Pain Scale 1-3) Acetaminophen (Acetaminophen 325 Mg Tablet) 650 mg PO ONCE PRN PRN Reason: Pain, Mild (Pain Scale 1-3) Stop: 08/23/23 16:48 Atorvastatin Calcium (Atorvastatin Calcium 40 Mg Tablet) 40 mg PO DAILY [facility] Docusate Sodium (Docusate Sodium 100 Mg Capsule) 100 mg PO BID DAVID Last Admin: 08/23/23 10:28 Dose: Not Given Fentanyl (Fentanyl Citrate/Pf 100 Mcg/2 Ml Vial) 25 mcg IVPUSH Q5M PRN; Protocol PRN Reason: Pain, Moderate(Pain Scale 4-6) Stop: 08/23/23 16:48 Hydromorphone HCl (Hydromorphone Hcl 1 Mg/Ml Syringe) 0.5 mg IVPUSH Q4H PRN; Protocol PRN Reason: Pain, Severe (Pain Scale 7-10) Last Admin: 08/23/23 08:09 Dose: 0.5 mg Hydromorphone HCl (Hydromorphone Hcl 0.5 Mg/0.5 Ml Syringe) 0.5 mg IVPUSH Q5M PRN; Protocol PRN Reason: Pain, Severe (Pain Scale 7-10) Stop: 08/23/23 16:48 Sodium Chloride (Ns) 1,000 mls @ 100 mls/hr IVCONT .Q10H [facility] Last Admin: 08/23/23 03:12 Dose: 100 mls/hr Piperacillin Sod/Tazobactam (Sod 3.375 gm/ Sodium Chloride) 50 mls @ 100 mls/hr IV Q6H [facility] Last Infusion: 08/23/23 08:33 Dose: Infused Lisinopril (Lisinopril 10 Mg Tablet) 10 mg PO DAILY [facility]; Protocol Ondansetron HCl (Ondansetron Hcl 4 Mg/2 Ml Vial) 4 mg IVPUSH Q6H PRN PRN Reason: nausea/vomiting Last Admin: 08/23/23 08:10 Dose: 4 mg Sodium Chloride (0.9 % Sodium Chloride Flush 3 Ml Syringe) 3 ml IVFLUSH QSHIFT [facility] Last Admin: 08/23/23 09:05 Dose: Not Given Home Medications ?Medication ?Instructions ?Recorded ?Confirmed ?Last Taken ?Type coenzyme Q10 10 mg capsule (Co 10 mg PO DAILY 05/26/20 08/23/23 08/21/23 History Q-10) multivitamin 1 tab PO DAILY 05/26/20 08/23/23 08/21/23 History lisinopril 10 mg tablet 10 mg PO DAILY 05/11/23 08/23/23 08/21/23 History Lactobacillus acidophilus 10 10,000 mmu cells PO DAILY 08/23/23 08/23/23 08/21/23 History billion cell capsule (Probiotic) atorvastatin 40 mg tablet 40 mg PO DAILY 08/23/23 08/23/23 08/21/23 History Exam Height,Weight and Vital Signs: Height 6 ft Weight 100.698 kg Last Vital Signs Temp 98.9 F 08/23/23 08:19 Pulse 74 08/23/23 08:19 Resp 16 08/23/23 08:19 BP 145/81 H 08/23/23 08:19 Pulse Ox 98 08/23/23 03:42 O2 Del Method Room Air 08/23/23 03:42 Pertinent Lab Results Pertinent Lab Results: Laboratory Tests 08/22/23 08/22/23 08/22/23 15:36 15:38 22:02 WBC 21.1 H RBC 5.25 Hgb 15.9 Hct 43.9 MCV 83.6 MCH 30.3 MCHC 36.2 H RDW 11.9 Plt Count 343 MPV 9.4 Immature Gran % (Auto) 0.3 Neut % (Auto) 84.8 H Lymph % (Auto) 10.4 L [place] % (Auto) 4.2 Eos % (Auto) 0.0 Baso % (Auto) 0.3 Lymph # (Auto) 2.2 [place] # (Auto) 0.9 Eos # (Auto) 0.0 Baso # (Auto) 0.1 Abs Immat Gran (auto) 0.07 H Absolute Neuts (auto) 17.9 H Absolute Nucleated RBC 0.000 Nucleated RBC % (auto) 0.0 PT 11.6 INR 1.0 APTT 30.6 Sodium 140 Potassium 3.7 Chloride 106 Carbon Dioxide 18 L Anion Gap 20 BUN 18 H Creatinine 0.99 Estim Creat Clear Calc 110.4 Estimated GFR > 60 Random Glucose 136 H Lactic Acid 1.6 Calcium 10.5 H D Magnesium 1.6 Total Bilirubin 1.2 H AST 26 ALT 45 H Alkaline Phosphatase 51 Troponin I High Sens < 2.7 2.8 Total Protein 8.0 Albumin 4.9 Lipase 34 Urine Color Urine Appearance Urine pH Ur Specific [place] Urine Protein Urine Glucose (UA) Urine Ketones Urine Blood Urine Nitrite Ur Leukocyte Esterase Influenza Type A (PCR) NEGATIVE Influenza Type B (PCR) NEGATIVE RSV RNA Qual (PCR) NEGATIVE SARS-CoV-2 RNA (RT-PCR) NEGATIVE 08/23/23 01:14 WBC RBC Hgb Hct MCV MCH MCHC RDW Plt Count MPV Immature Gran % (Auto) Neut % (Auto) Lymph % (Auto) [place] % (Auto) Eos % (Auto) Baso % (Auto) Lymph # (Auto) [place] # (Auto) Eos # (Auto) Baso # (Auto) Abs Immat Gran (auto) Absolute Neuts (auto) Absolute Nucleated RBC Nucleated RBC % (auto) PT INR APTT Sodium Potassium Chloride Carbon Dioxide Anion Gap BUN Creatinine Estim Creat Clear Calc Estimated GFR Random Glucose Lactic Acid Calcium Magnesium Total Bilirubin AST ALT Alkaline Phosphatase Troponin I High Sens Total Protein Albumin Lipase Urine Color Yellow Urine Appearance Clear Urine pH 5.5 Ur Specific [place] >= 1.030 H Urine Protein Negative Urine Glucose (UA) Negative Urine Ketones Negative Urine Blood Negative Urine Nitrite Negative Ur Leukocyte Esterase Negative Influenza Type A (PCR) Influenza Type B (PCR) RSV RNA Qual (PCR) SARS-CoV-2 RNA (RT-PCR) Airway Mallampati Class: I TM Dist: >3cm Neck ROM: Full Loose/Missing/Broken Teeth: No Heart: rrr Lungs: cta Assessment and Plan Final Anesthetic Review Family History of Problems with Anesthesia: No History of Problems with Anesthesia: No NPO: Yes ASA Class: II and Emergency Final Preanesthetic Review: No Changes in Pt Med Stat, Meds/Allgs Chart Reviewed, Consent Obtained/Reviewed and Anes Risks/Benef Reviewed Patient Risk: Intermediate Procedure Risk: Intermediate Anesthetic Plan Anesthetic Plan: GA Disposition: Standard PACU
--- NOTE | 2023-08-23 12:13 | P.OP_ITS ---
Operative Note Operative Note Date of Service: 08/23/23 Narrative: Preoperative diagnosis: [] Acute cholecystitis Postop diagnosis: [] Acute phlegmonous cholecystitis Procedure [] laparoscopic cholecystectomy Surgeon: [] Harsh Synoptic Meteorologist: [] Kadi Type of Anesthesia: [] General Indication for surgery: [] A phlegmonous, thickened , pus filled gallbladder with dense omental adhesions to it. Markedly intrahepatic gallbladder. Very corpulent abdomen. Findings: [] Patient brought to the operating room, placed on operative table supine position, after an adequate level of general anesthesia was induced, the patient's abdomen was prepped and draped in usual sterile fashion. Using a supraumbilical curvilinear incision, Hampton technique was used to insufflate the abdominal cavity to 15 mm of CO2. Upper midline and right subcostal ports were placed under direct laparoscopic view, and the patient placed in reverse Trendelenburg position, and tilted to the left. Dense omental adhesions were swept off the gallbladder. Gallbladder was markedly turgid and was decompressed with an aspirating device where grossly purulent material was retrieved. Gallbladder was then retracted superiorly and laterally with laparoscopic graspers and the hilum was approached. Cystic artery and cystic duct were each identified, circumferentially skeletonized, each traced directly into the gallbladder, and critical view obtained. Each was clipped proximally x2, distally x1, and transected gallbladder which was very intrahepatic was then cauterized from the gallbladder fossa using Bovie. Specimen was placed in an Endo-Catch bag, and retrieved through the umbilical port. Abdominal cavity was very copiously irrigated, and secured hemostasis. All ports were removed under direct laparoscopic view. Wounds were closed in the following manner; umbilical wound is fascia reapproximated using interrupted 0 Vicryl sutures. Skin wounds were closed using subcuticular 4-0 Vicryl sutures followed by Steri- Strips and sterile dressings. Wounds were infiltrated 0.5% Marcaine at completion. Sponge, needle, and instrument counts reported correct. Patient tolerated the procedure well and emerged from anesthesia stable condition. EBL minimal
[2023-08-23] MEDS: fentaNYL citrate/PF 100 MCG/2 ML VIAL 25 MCG IVPUSH ×2 (12:53→13:00)
[2023-08-23] MEDS: Docusate Sodium 100 MG CAPSULE PO (20:14)
[2023-08-23] MEDS: oxyCODONE HCl Immed Release 5 MG TABLET PO (20:14)
[2023-08-24] MEDS: 0.9 % Sodium Chloride 1,000 ML 100 ML IVCONT (02:00)
[2023-08-24 03:10] VITALS: BP 163/86; PULSE 93; RESP 18; TEMP 37.7; O2SAT 91
[2023-08-24] MEDS: oxyCODONE HCl Immed Release 5 MG TABLET PO ×4 (03:12→16:24)
[2023-08-24 05:55] LABS: Basophils Percent Auto 0.2 % (0-2); Eosinophils Percent Auto 0.2 % (0-4); Hematocrit 37.1 % (42.0-52.0); Imm Gran Abs Auto 0.06 X10*3/uL (0.00-0.03); Imm Gran Pct Auto 0.4 % (0.0-0.4); Lymphocytes Absolute Auto 2.9 X10*3/uL (1.2-4.9); Lymphocytes Percent Auto 17.4 % (20-40); MANUAL DIFF FLAG SCAN; Mean Corpuscular Hemoglobin 30.4 pg (27.0-33.0); Mean Corpuscular Volume 86.7 fL (80.0-98.0); Mean Platelet Volume 9.6 fL (9.4-12.4); Monocytes Absolute Auto 1.5 X10*3/uL (0.1-1.2); Monocytes Percent Auto 9.4 % (2-11); Neutrophils Absolute Auto 11.9 x10*3/uL (2.0-8.3); Neutrophils Percent Auto 72.4 % (45-73); Platelet Count 220 X10*3/uL (160-400); Red Blood Count 4.28 X10*6/uL (4.60-5.80); Red Cell Distribution Width 12.2 % (11.0-16.0); SCAN SMEAR FLAG 1; White Blood Count 16.4 X10*3/uL (4.8-10.8)
[2023-08-24 06:21] LABS: SLIDE REVIEW VERIFIED
[2023-08-24 07:17] VITALS: BP 162/96; PULSE 93; RESP 18; TEMP 37.1; O2SAT 92
[2023-08-24] MEDS: Docusate Sodium 100 MG CAPSULE PO (07:38)
[2023-08-24] MEDS: lisinopriL 10 MG TABLET PO (07:38)
[2023-08-24] MEDS: Atorvastatin Calcium 40 MG TABLET PO (07:39)
[2023-08-24] MEDS: 0.9 % Sodium Chloride Flush 3 ML SYRINGE IVFLUSH ×2 (07:40→16:26)
--- NOTE | 2023-08-24 07:45 | PM.PNGS ---
Subjective Subjective Date of Service: 08/24/23 Interval history: Very sore this morning and having difficulty getting OOB, taking deep breaths. Tolerating solid diet. Physical Exam Vital Signs: Vital Signs: Last Vital Signs Temp 98.7 F 08/24/23 07:17 Pulse 93 08/24/23 07:17 Resp 18 08/24/23 07:17 BP 162/96 H 08/24/23 07:17 Pulse Ox 92 08/24/23 07:17 O2 Del Method Room Air 08/24/23 07:17 O2 Flow Rate 2 08/23/23 14:00 BMI result Body Mass Index 30.1 Const: General: comfortable, no acute distress and alert Orientation/consciousness: patient oriented x3 Resp: Effort & Inspection: normal respiratory effort GI: Inspection: No distended and Yes incision (dressings c/d/i) Palpation (GI): Soft to palpation, Tenderness to palpation present (GI) (mild incisional) and no guarding Skin: General skin exam: no rashes or lesions noted and no jaundice Neuro: General: patient oriented x3 Objective Data Active Medications Acetaminophen (Acetaminophen 325 Mg Tablet) 650 mg PO Q6H PRN PRN Reason: Pain, Mild (Pain Scale 1-3) Al Hydroxide/Mg Hydroxide (Magnesium Hydrox/Alum Hydrox 30 Ml Oral.Susp) 30 ml PO Q6H PRN PRN Reason: Heartburn Albuterol Sulfate (Albuterol Sulfate 90 Mcg 8 Gm Inhaler) 2 puff INHALE RQ4H PRN PRN Reason: Shortness of Breath/Wheezing Atorvastatin Calcium (Atorvastatin Calcium 40 Mg Tablet) 40 mg PO DAILY [facility] Last Admin: 08/24/23 07:39 Dose: 40 mg Documented By: SURAJ Docusate Sodium (Docusate Sodium 100 Mg Capsule) 100 mg PO BID [facility] Last Admin: 08/24/23 07:38 Dose: 100 mg Documented By: SURAJ Hydromorphone HCl (Hydromorphone Hcl 1 Mg/Ml Syringe) 0.5 mg IVPUSH Q4H PRN; Protocol PRN Reason: Pain, Severe (Pain Scale 7-10) Last Admin: 08/23/23 23:52 Dose: 0.5 mg Documented By: ANTONIO Sodium Chloride (Ns) 1,000 mls @ 100 mls/hr IVCONT .Q10H [facility] Last Admin: 08/24/23 02:00 Dose: 100 mls/hr Documented By: ANTONIO Lisinopril (Lisinopril 10 Mg Tablet) 10 mg PO DAILY [facility]; Protocol Last Admin: 08/24/23 07:38 Dose: 10 mg Documented By: SURAJ Melatonin (Melatonin 3 Mg Tablet) 6 mg PO BEDTIME PRN PRN Reason: Insomnia Ondansetron HCl (Ondansetron Hcl 4 Mg/2 Ml Vial) 4 mg IVPUSH Q6H PRN PRN Reason: nausea/vomiting Last Admin: 08/23/23 08:10 Dose: 4 mg Documented By: JOSE Oxycodone HCl (Oxycodone Hcl Immed Release 5 Mg Tablet) 5 mg PO Q4H PRN PRN Reason: Pain, Moderate(Pain Scale 4-6) Last Admin: 08/24/23 07:37 Dose: 5 mg Documented By: SURAJ Sodium Chloride (0.9 % Sodium Chloride Flush 3 Ml Syringe) [facility] Last Admin: 08/24/23 07:40 Dose: 3 ml Documented By: SURAJ Labs 08/24/23 05:39 08/22/23 15:38 Labs: Laboratory Results - last 24 hr 08/24/23 05:39 MCV 86.7 MCH 30.4 MCHC 35.0 RDW 12.2 Plt Count 220 D MPV 9.6 Immature Gran % (Auto) 0.4 Neut % (Auto) 72.4 Lymph % (Auto) 17.4 L [place] % (Auto) 9.4 Eos % (Auto) 0.2 Baso % (Auto) 0.2 Lymph # (Auto) 2.9 [place] # (Auto) 1.5 H Eos # (Auto) 0.0 Baso # (Auto) 0.0 Abs Immat Gran (auto) 0.06 H Absolute Neuts (auto) 11.9 H Absolute Nucleated RBC 0.000 Nucleated RBC % (auto) 0.0 Smear Tech's Comments VERIFIED Microbiology Microbiology Results: Microbiology 08/22/23 22:11 Blood Culture - Preliminary Blood - Venous No growth after 24 hours. 08/22/23 22:02 Blood Culture - Preliminary Blood - Venous No growth after 24 hours. Procedures Date of Service Date of Service: 08/24/23 Progress Note: A&P Assessment and plan (1) Acute cholecystitis: Status: Acute (2) S/P laparoscopic cholecystectomy: Status: Acute Plan POD #1 s/p lap hoa. Doing fairly well post op, difficulty with pain. Will reassess later today, if comfortable, stable for dc to home today. Encouraged OOB/increase activity. Patient comfortable with plan. Coronary artery calcifications on CT scan- undergoing outpt work up by cardiology, referred for coronary CTA which patient states he will get and f/u with cardiology outpatient. Time Spent With Patient Time: Total time managing care of this patient today ____ minutes. Quality Stroke Does the patient have a stroke diagnosis?: No VTE Prior VTE?: No VTE Risk Level:: Surgical - high VTE Device Contraindication: N/A - Device Ordered VTE Drug Contraindication: N/A - Med Ordered
--- NOTE | 2023-08-24 09:18 | HO.POSTANES ---
Post Anesthesia Evaluation Post Anesthesia Evaluation Date of Service: 08/23/23 Vital Signs: Vital Signs Temp Pulse Resp BP Pulse Ox O2 Del Method 08/24/23 07:17 98.7 F 93 18 162/96 H 92 Room Air 08/24/23 03:10 99.9 F 93 18 163/86 H 91 L Room Air Anesthesia: General Endotracheal-GETA Mental Status: Awake Pain Control: Satisfactory Nausea/Vomiting: None Hydration: Adequate Anesthesia-Related Issues: No Anes. Related Issues
--- NOTE | 2023-08-24 09:42 | MHC.CM.PN ---
CM MET WITH PT AT BEDSIDE. 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 +HCP PCP DR. TYLER FELICIANO DP: HOME, NO SERVICES ANTICIPATED. PT HAS OWN RIDE HOME. CM WILL CONTINUE TO FOLLOW FOR ANY CHANGE TO DC PLAN.
--- NOTE | 2023-08-24 10:48 | P.DS_ITS ---
DS: Providers Provider Date of Service: 08/24/23 Date of admission: 08/23/23 09:18 Date of discharge: 08/24/23 Primary care physician: Ab Barraza MD Attending physician on admission: Eugene House Consults: 08/23/23 07:28 Consult to Cardiology Routine Consulting Provider: [facility] Reason for consultation: pre op, coronary artery calcifications, T wave inversions Has provider been notified: No Attending physician on discharge: Eugene House DS: Diagnosis Discharge Diagnosis (1) Acute cholecystitis: Status: Acute (2) S/P laparoscopic cholecystectomy: Status: Acute DS: Summary Hospital Course Hospital Course: HPI AT ADMISSION: 48 yo male with PMH significant for HTN, hx of lumbar discectomy with posterior approach who presented to the ED with complaints of epigastric/RUQ abd pain that began yesterday. He thought it was gas pain and took maalox without improvement and it became more constant. He developed nausea with multiple episodes of vomiting. He denies similar episodes of prior pain. He denies fevers, chills, diarrhea, sick contacts back pain. He reports mild chest tightness. Due to the severity of pain he presented to the ED for work up which included CBC, BMP, LFTs which was significant for leukocytosis 21.1 and total bili of 1.2. CT scan showed a distended gallbladder, gallbladder wall thickening, mild pericholecystic stranding with biliary ductal dilatation suggestive of acute cholecystitis. CT scan also showed coronary artery calcifications. EKG with T wave inversion. Troponin <2.7. He has a family history significant for CAD, [place] in his mother at age 50. He has had SOB/chest pain in the past and is followed by cardiology. He had an exercise stress test with ST depression suggestive of ischemia and was recommended to have further workup to assess for any ischemic heart disease with coronary CTA, unclear if this has been done. Recent echo in 07/09 was normal. HOSPITAL COURSE: He was admitted to the surgical service for further treatment of the acute cholecystitis. It was recommended to proceed with laparoscopic cholecystectomy and he agreed. Cardiology was consulted and the patient was low to intermediate risk and recommended continued coronary artery disease outpatient work up as before with coronary CTA which he has already been referred for. On 08/23/23, a laparoscopic cholecystectomy was performed by Dr. House without complication. The patient tolerated the procedure well. He had an uncomplicated recovery course. On POD #1, he was tolerating a solid diet without nausea or vomiting. His pain was controlled on oral analgesics. He was ambulating without difficulty. His abdomen was benign with appropriate post op tenderness and clean incisions. He felt ready for dc to home and was discharged on 08/24/23 in stable condition. He is to follow up in the office in 1 week. He is to follow up with cardiology for his outpatient work up. Status at Discharge Functional status at discharge: independent ambulation Overall status at discharge: patient is progressing back to baseline Time Attestation Discharge Coordination Time (in mins): 30 Quality: Safe Use of Opioids Does Pt have an Active Cancer Diagnosis on the Problem List?: No Quality: Stroke Does the patient have a stroke diagnosis?: No Physical Exam Vital Signs: Vital Signs: Last Vital Signs Temp 98.0 F 08/24/23 15:09 Pulse 87 08/24/23 15:09 Resp 20 08/24/23 15:09 BP 145/84 H 08/24/23 15:09 Pulse Ox 95 08/24/23 15:09 O2 Del Method Room Air 08/24/23 15:09 O2 Flow Rate 2 08/23/23 14:00 BMI result Body Mass Index 30.1 Const: General: comfortable, no acute distress and alert [place] ation/consciousness: patient oriented x3 Resp: Effort & Inspection: normal respiratory effort GI: Inspection: No distended and Yes incision (dressings c/d/i) Palpation (GI): Soft to palpation, Tenderness to palpation present (GI) (mild incisional) and no guarding Skin: General skin exam: no rashes or lesions noted and no jaundice Neuro: General: patient oriented x3 and moves all extremities DS: Data Data Completed and Pending Completed studies during hospitalization [Text1]: 08/23/23 11:48 Surgical [PTH] Routine Gallbladder, cholecystectomy: Acute cholecystitis; cholelithiasis; one reactive lymph node Labs on day of discharge: Preliminary micro results at discharge 08/22/23 22:11 Blood Culture - Preliminary Blood - Venous No growth after 48 hours. 08/22/23 22:02 Blood Culture - Preliminary Blood - Venous No growth after 48 hours. Discharge Plan Discharge Anticipated Discharge Date/Time: 08/24/23 09:58 Patient Disposition: Home, Self-Care Discharge Diagnosis: acute cholecystitis, s/p laparoscopic cholecystectomy Referrals: Ab Barraza MD [Primary Care Provider] - 1 Week Wellington Kelley MD [Physician] - 1 Month Eugene House MD [Physician] - 1 Week Discharge Medications: New docusate sodium [Colace] 100 mg capsule 100 mg PO BID Qty: 30 0RF Continued atorvastatin 40 mg tablet 40 mg PO DAILY Probiotic 10 billion cell Capsule 10,000 mmu cells PO DAILY multivitamin Tablet 1 tab PO DAILY coenzyme Q10 [Co Q-10] 10 mg capsule 10 mg PO DAILY lisinopril 10 mg tablet 10 mg PO DAILY Discharge Orders: Discharge Order (Routine); Ordered 08/24/23 Ordered By: Analia Wallis Diet: Low fat, low cholesterol Activity on Discharge: No heavy lifting Stand Alone Forms: Patient Portal Discharge page Print Language: Mauritanian Activity Restrictions/Additional Instructions: Apply an ice pack for short intervals (20 minutes on, followed by at least 20 minutes off) for the first 2 days. Do not apply heat. Do not use creams, lotions, or topical antibiotics. These can cause infection or allergic reaction. Ok to shower 48 hours after your surgery. Remove dressings in 2 days and replace as needed. You have steri strips (small white cloth strips) covering your incision- these will fall off ~1 week. Follow up in office with Dr. House in 1 week. ([phone]) No heavy lifting (>10lbs) or strenuous activity! Call Your Doctor If: -Your temperature exceeds 101.5? F -You experience excessive pain or swelling -You have an unexpected reaction to medication -You have excessive bleeding -You experience continued vomiting/nausea -Your incision begins to separate -Your incision shows signs of infection such as increased redness, swelling, excessive pain, drainage (light blood or clear fluid is normal) or heat Care Plan Goals: Return to baseline health and resume normal activities following recovery period. Health Concerns: acute cholecystitis Plan of Treatment: s/p laparoscopic cholecystectomy f/u in office in 1 week Assessment: doing well post op Discharge Date/Time: 08/24/23 18:15
--- NOTE | 2023-08-24 14:35 | MHC.CM.PN ---
DP: PT HAS BEEN MEDICALLY CLEARED FOR DC HOME, NO SERVICES. PT HAS OWN RIDE HOME
[2023-08-24 15:09] VITALS: BP 145/84; PULSE 87; RESP 20; TEMP 36.7; O2SAT 95
== END 2023-08-24 18:15 | disposition home or self-care (01) | DRG 263 ==
LOC: HO.ED 08-23 01:21 → HO.EDOVER 08-23 09:28 → HO.S3 08-23 14:37
PROVIDERS: Physician Assistant Medical; Surgery; Admitting Provider Physician Assistant Surgical; Emergency Provider Emergency Medicine; PCP Internal Medicine; Visit Provider Physician Assistant Surgical
PROC: 0FT44ZZ Resection of Gallbladder, Percutaneous Endoscopic Approach (ICD-10-PCS; CPT 47562; principal; 2023-08-23 10:50)
DX: K81.0 Acute cholecystitis (principal); K82.8 Other specified diseases of gallbladder; Z20.822 Contact with and (suspected) exposure to COVID-19; Z79.899 Other long term (current) drug therapy
CPT/HCPCS: 0241U; 36415; 74177; 80053; 81003; 83605; 83690; 83735; 84484; 85025; 85610; 85730; 87040; 88304; 93005; 99285; C9113; J1170; J2250; J2270; J2405; J2543; J2704; J2795; J3010; Q9967

== ENCOUNTER → 2023-08-22 15:24 | Outpatient (BNV) | payer BC, SELFPAY | PROVIDERS: Admitting Provider Physician Assistant Surgical; Emergency Provider Emergency Medicine; PCP Internal Medicine; Visit Provider Internal Medicine Cardiovascular Disease | DX: R94.31 Abnormal electrocardiogram [ECG] [EKG] (principal) | CPT/HCPCS: 93010 ==

== ENCOUNTER → 2023-08-23 09:18 | Outpatient (BNV) | payer BC, SELFPAY | PROVIDERS: Admitting Provider Physician Assistant Surgical; Emergency Provider Emergency Medicine; PCP Internal Medicine; Visit Provider Surgery | DX: K81.0 Acute cholecystitis (principal) | CPT/HCPCS: 47562; 99024; 99222 ==

== ENCOUNTER → 2023-08-23 09:18 | Outpatient (BNV) | payer BC, SELFPAY | PROVIDERS: Admitting Provider Physician Assistant Surgical; Emergency Provider Emergency Medicine; PCP Internal Medicine; Visit Provider Internal Medicine Cardiovascular Disease | DX: R94.31 Abnormal electrocardiogram [ECG] [EKG] (principal); K81.0 Acute cholecystitis | CPT/HCPCS: 99253 ==

== ENCOUNTER 2023-08-30 09:32 | Outpatient (AMB) | payer BC, SELFPAY ==
[2023-08-30 09:40] VITALS: BP 123/75; PULSE 79
--- NOTE | 2023-08-30 09:40 | A.OFFVIS_ITS ---
Vital Signs 08/30/23 09:40 Weight 212 lb BP 123/75 Blood Pressure Location Lt brachial Position Sitting Pulse 79 Intake Visit Reasons: cholecysectomy follow up Intake Note: Patient here s/p lap hoa. Reports incisions healing well. Patient c/o: pain along incision. Denies oozing. Could not take rx pain meds due to constipation. Only taking Motrin as needed. SX: 08-23-23. Information Management Specialist Required: No Accompanied by: Self / Same As Patient Allergies No Known Allergies Allergy (Verified 08/30/23 09:42) HPI Comments Details: Patient presents for follow-up. Aside from incisional discomfort which is improving is otherwise doing well. He is tolerating his diet patient having regular bowel habits. He has no wound issues or complaints. [facility] Medical History HTN (hypertension) Chest pressure Surgical History History of back surgery Family History Mother Heart disease Ovarian cancer Father CHF (congestive heart failure) Social History Household Members: Children Housing: Homeless Do you presently have visiting nurse or other home services: No Alcohol intake: current Alcohol intake frequency: holidays/special occasions only Patient Tobacco Use Status: Never used Tobacco Substance Use Type: Marijuana service: No Physical Exam Vital Signs: Last Vital Signs Pulse 79 08/30/23 09:40 BP 123/75 08/30/23 09:40 Eyes Other: Anicteric Chest Other: Chest breath sounds bilaterally clear GI Other: Abdomen is soft. All wounds clean dry and intact healing well Assessment & Plan Assessment & Plan (1) S/P laparoscopic cholecystectomy: Code(s): Z90.49 - Acquired absence of other specified parts of digestive tract Category: Surgical (2) Postop check: Code(s): Z09 - Encounter for follow-up examination after completed treatment for conditions other than malignant neoplasm Category: Surgical Plan Patient has been given local instructions, and will follow-up p.r.n.. He is employed at home and does not do strenuous activities. All questions answered. Coding Level of Care Code Global (48907) Diagnoses S/P laparoscopic cholecystectomy Z90.49 Postop check Z09
== END 2023-08-30 10:00 | disposition home or self-care (01) ==
PROVIDERS: PCP Internal Medicine; Visit Provider Surgery
DX: Z90.49 Acquired absence of other specified parts of digestive tract (principal); Z09 Encounter for follow-up examination after completed treatment for conditions other than malignant neoplasm
CPT/HCPCS: 99024

== ENCOUNTER → 2023-08-30 09:32 | Outpatient (BNVA) | payer BC, SELFPAY | PROVIDERS: PCP Internal Medicine; Visit Provider Surgery ==

== ENCOUNTER 2023-09-30 10:45 | Outpatient (REF) | payer BC, SELFPAY ==
[2023-09-30 11:28] LABS: Alanine Aminotransferase 30 U/L (0-40); Albumin Level 4.3 g/dL (3.5-5.0); Alkaline Phosphatase 48 U/L (39-117); Aspartate Amino Transferase 20 U/L (5-37); Bilirubin Direct 0.3 mg/dL (0.0-0.5); Bilirubin Total 0.6 mg/dL (0.0-1.0); Cholesterol 135 mg/dL (<200); HDL Cholesterol 48 mg/dL (>40); LDL Cholesterol Calculated 74 mg/dL (<100); Triglycerides 65 mg/dL (<150)
== END 2023-09-30 10:46 | disposition home or self-care (01) ==
LOC: HO.LNP 10:45
PROVIDERS: Visit Provider Internal Medicine
DX: E78.00 Pure hypercholesterolemia, unspecified (principal)
CPT/HCPCS: 80061; 80076

== ENCOUNTER 2023-10-24 15:36 | Outpatient (REF) | payer BC, SELFPAY ==
--- NOTE | ~2023-10-24 | XR_ITS ---
EXAMINATION: XR CHEST CLINICAL INFORMATION: Chest tightness COMPARISON: None available. TECHNIQUE: 2 views of the chest were obtained. The most inferior posterior aspect of a posterior costophrenic sulcus is excluded from the film. FINDINGS: No airspace consolidation or pneumothorax seen. Hilar regions and pulmonary vascularity unremarkable. No evidence for pneumomediastinum. The visualized pleural surfaces appear to be clear. Bony thorax appears unremarkable. XR/XR chest 2V IMPRESSION: No evidence for acute process.
== END 2023-10-24 15:37 | disposition home or self-care (01) ==
LOC: HO.XRAY 15:36
PROVIDERS: PCP Internal Medicine; Visit Provider Internal Medicine
DX: R05.9 Cough, unspecified (principal)
CPT/HCPCS: 71046

== ENCOUNTER 2023-11-28 14:58 | Outpatient (REF) | payer BC, SELFPAY ==
[2023-11-28 15:13] LABS: MANUAL DIFF FLAG NO
[2023-11-28 15:57] LABS: Basophils Absolute Auto 0.1 X10*3/uL (0.0-0.2); Basophils Percent Auto 0.7 % (0-2); Eosinophils Absolute Auto 0.5 X10*3/uL (0.0-0.4); Eosinophils Percent Auto 5.3 % (0-4); Hematocrit 43.1 % (42.0-52.0); Hemoglobin 14.7 g/dl (14.0-18.0); Imm Gran Abs Auto 0.03 X10*3/uL (0.00-0.03); Imm Gran Pct Auto 0.3 % (0.0-0.4); Lymphocytes Absolute Auto 3.7 X10*3/uL (1.2-4.9); Lymphocytes Percent Auto 38.6 % (20-40); Mean Corpuscular HGB Conc 34.1 g/dl (31.0-36.0); Mean Corpuscular Hemoglobin 29.5 pg (27.0-33.0); Mean Corpuscular Volume 86.4 fL (80.0-98.0); Mean Platelet Volume 9.7 fL (9.4-12.4); Monocytes Absolute Auto 0.7 X10*3/uL (0.1-1.2); Monocytes Percent Auto 7.6 % (2-11); Neutrophils Absolute Auto 4.6 x10*3/uL (2.0-8.3); Neutrophils Percent Auto 47.5 % (45-73); Platelet Count 338 X10*3/uL (160-400); Red Blood Count 4.99 X10*6/uL (4.60-5.80); Red Cell Distribution Width 12.7 % (11.0-16.0); White Blood Count 9.6 X10*3/uL (4.8-10.8)
[2023-11-28 16:04] LABS: INTERNATIONAL NORM RATIO 0.9 (0.9-1.1); Prothrombin Time 11.4 SEC (11.1-13.3)
[2023-11-28 16:58] LABS: Anion Gap 15 (12-20); Blood Urea Nitrogen 17 mg/dL (9-16); Calcium 9.9 mg/dL (8.4-10.2); Carbon Dioxide 24 mmol/L (22-29); Chloride 108 mmol/L (96-108); Estimated Glomerular Filt Rate > 60; Glucose Random 95 mg/dL (60-115); Sodium 143 mmol/L (135-145)
== END 2023-11-28 14:59 | disposition home or self-care (01) ==
LOC: HO.LAB 14:58
PROVIDERS: PCP Internal Medicine; Visit Provider Internal Medicine
DX: I25.10 Atherosclerotic heart disease of native coronary artery without angina pectoris (principal)
CPT/HCPCS: 36415; 80048; 85025; 85610

== ENCOUNTER → 2023-12-02 23:59 | Outpatient (BNV) | payer BC, SELFPAY | PROVIDERS: PCP Internal Medicine; Visit Provider Internal Medicine Cardiovascular Disease | DX: I20.89 Other forms of angina pectoris (principal); R93.1 Abnormal findings on diagnostic imaging of heart and coronary circulation | CPT/HCPCS: 92928; 92929; 92978; 93458; 99152 ==

== ENCOUNTER 2023-12-07 12:01 | Outpatient (AMB) | payer BC, SELFPAY ==
--- NOTE | 2023-12-07 12:31 | MHC.OFFVIS ---
Vital Signs 12/07/23 12:34 Height 6 ft Weight 213 lb 13.574 oz BMI 29.0 BP 114/68 Blood Pressure Location Lt brachial Position Sitting Pulse 78 Pulse Source Pulse Oximeter Intake Visit Reasons: follow up /cardiac cath Financial Services Agent Required: No Accompanied by: Self / Same As Patient Allergies Iodinated Contrast Media Allergy (Verified 11/28/23 11:06) unknown Medication List - Last Reconciled 12/07/23 by Royer Brunner MD aspirin (Adult Low Dose Aspirin) 81 mg PO DAILY atorvastatin 40 mg PO DAILY coenzyme Q10 (Co Q-10) 10 mg PO DAILY lisinopril 10 mg PO DAILY multivitamin 1 tab PO DAILY ticagrelor (Brilinta) 90 mg PO BID HPI Comments Details: Jose returns for follow-up regarding chest pains. He had a stress test where he reached 10.8 METS on Avi protocol, but no clear-cut angina. EKG was however, abnormal. This led to a coronary CTA where there was significant LAD disease. Following this, underwent cardiac catheterization LAD stenting. Overall, it seems he is actually feeling better. Still some symptoms like palpitations that he relates drinking coffee. Chest pain itself is better. He does get some nonspecific discomfort with anxiety and stress, but that does not sound anginal. PENDING SALE TO [facility] Medical History (Updated 12/07/23 @ 13:10 by Royer Brunner MD) HTN (hypertension) Chest pressure Surgical History (Updated 12/07/23 @ 13:08 by Royer Brunner MD) History of back surgery Family History Mother Heart disease Ovarian cancer Father CHF (congestive heart failure) Social History Household Members: Children Housing: Homeless Do you presently have visiting nurse or other home services: No Alcohol intake: current Alcohol intake frequency: holidays/special occasions only Patient Tobacco Use Status: Never used Tobacco Substance Use Type: Marijuana service: No Review of Systems Const Denies chills, Denies fatigue, Denies fever(s), Denies weight gain and Denies weight loss ENT Denies dizziness Card Reports chest pain, Denies leg edema, Denies lightheadedness, Reports palpitations, Denies dyspnea on exertion, Denies orthopnea and Denies other Resp Denies cough and Denies dyspnea on exertion GI Denies hematochezia and Denies change in stool character Musc Denies abnormal gait, Denies muscle weakness, Denies numbness, Denies radiating pain into limb and Denies tingling Neuro Denies abnormal gait, Denies dizziness, Denies numbness and Denies tingling Endo Denies fatigue and Reports palpitations Physical Exam Vital Signs: Last Vital Signs Pulse 78 12/07/23 12:34 BP 114/68 12/07/23 12:34 BMI result Body Mass Index 29.0 Const General: comfortable and no acute distress Orientation/consciousness: patient oriented x3 HEENT Other: Unremarkable Head: Yes normal to inspection Neck Neck: Yes normal visual inspection Chest Chest palpation & inspection: normal inspection of the chest Resp Auscultation: clear to auscultation bilaterally Cardio Palpation: normal PMI Heart sounds: S1 normal heart sound present, S2 normal heart sound present, no gallops, no murmurs and no rubs GI Palpation (GI): Soft to palpation Back/Spine/Pelvis Other: unremarkable Skin General skin exam: no rashes or lesions noted Neuro General: patient oriented x3 Extrem General: Yes normal to inspection Psych Mental Status: mental status grossly normal Assessment & Plan Assessment & Plan (1) Atherosclerotic cardiovascular disease: Code(s): I25.10 - Atherosclerotic heart disease of [place] coronary artery without angina pectoris Category: Medical (2) Stented coronary artery: Code(s): Z95.5 - Presence of coronary angioplasty implant and graft Category: Surgical (3) Other and unspecified hyperlipidemia: Code(s): E78.5 - Hyperlipidemia, unspecified Category: Medical (4) HTN (hypertension): Code(s): I10 - Essential (primary) hypertension Category: Medical Plan Cardiac catheterization data reviewed. Essentially FACILITIES CLERK of the proximal LAD with [id number] collateral; mid LAD also has severe stenosis. Status post PCI to LAD. Minimal disease in the RCA and circumflex. Findings discussed with patient. Continue long-term aspirin. Brilinta at least for 1 year. Continue statins. LDL cholesterol levels have improved significantly from 153-74mg/dl. Triglycerides 65 mg/dL. For blood pressure, on lisinopril. Cardiac rehabilitation. Follow-up in 3 months. Call with concerns in the interim. Orders: Orders Cardiac Rehab Today Z95.5 - Presence of coronary angioplasty implant and graft Coding Level of Care Code Est Pt Level 4 (42444) Diagnoses Atherosclerotic cardiovascular disease I25.10 Stented coronary artery Z95.5 Other and unspecified hyperlipidemia E78.5 HTN (hypertension) I10
[2023-12-07 12:34] VITALS: BP 114/68; PULSE 78; BMI 29.0
== END 2023-12-07 13:05 | disposition home or self-care (01) ==
PROVIDERS: PCP Internal Medicine; Visit Provider Internal Medicine
DX: I25.10 Atherosclerotic heart disease of native coronary artery without angina pectoris (principal); Z95.5 Presence of coronary angioplasty implant and graft; E78.5 Hyperlipidemia, unspecified; I10 Essential (primary) hypertension
CPT/HCPCS: 99214

== ENCOUNTER → 2023-12-07 12:01 | Outpatient (BNVA) | payer BC, SELFPAY | PROVIDERS: PCP Internal Medicine; Visit Provider Internal Medicine ==

== ENCOUNTER 2023-12-23 11:00 | Outpatient (RCR) | payer BC, SELFPAY ==
--- NOTE | 2024-01-17 10:47 | MHC.PT.DC ---
[facility] [place] Office [place] Office [place] Office [address] Rod De León [address] [phone] F: [phone] F: [phone] F: [phone] F: [phone] Physical Therapy Discharge Report Diagnosis: MD Diagnosis: Shoulder Joint Dysfunction (KP) Date of Surgery: Date of Evaluation: 11/22/23 Date of Discharge: 01/17/24 Treatments to Date: 9 Cancellations to Date: 1 No Shows to Date: 0 Discharge Status: Improved Function Independent with HEP Patient Elected to Stop Discharge Summary: Pt ELECTED NOT TO SCHEDULE FURTHER VISITS, HAD BEEN PROGRESSING WELL IN PT AND DEMONSTRATED INDEPENDENCE IN HOME PROGRAM. A FORMAL REASSESSMENT WAS NOT PERFORMED Electronically signed by: DEANN NICOLE PT DPT Please sign and return to therapist. Thank you for your referral.
== END 2024-01-17 10:47 | disposition home or self-care (01) ==
LOC: HO.PT 11:00
PROVIDERS: PCP Internal Medicine; Visit Provider Internal Medicine
DX: M25.9 Joint disorder, unspecified (principal)
CPT/HCPCS: 97110; 97140; 97161; 97530; 97535

== ENCOUNTER 2023-12-29 11:15 | Outpatient (REF) | payer BC, SELFPAY ==
[2023-12-29 12:21] LABS: Alanine Aminotransferase 40 U/L (0-40); Albumin Level 4.3 g/dL (3.5-5.0); Alkaline Phosphatase 46 U/L (39-117); Aspartate Amino Transferase 38 U/L (5-37); Bilirubin Direct 0.3 mg/dL (0.0-0.5); Bilirubin Total 0.7 mg/dL (0.0-1.0); Cholesterol 131 mg/dL (<200); HDL Cholesterol 43 mg/dL (>40); LDL Cholesterol Calculated 73 mg/dL (<100); Total Protein 6.8 g/dL (6.5-8.0); Triglycerides 75 mg/dL (<150)
[2023-12-29 12:50] LABS: Reflex LDLD? No
== END 2023-12-29 11:16 | disposition home or self-care (01) ==
LOC: HO.LNP 11:15
PROVIDERS: Visit Provider Internal Medicine
DX: E78.00 Pure hypercholesterolemia, unspecified (principal)
CPT/HCPCS: 80061; 80076

== ENCOUNTER 2024-01-23 09:08 | Outpatient (REF) | payer BC, SELFPAY ==
--- NOTE | ~2024-01-23 | XR_ITS ---
EXAMINATION: XR ANKLE, LEFT CLINICAL INFORMATION: Sprain COMPARISON: None available. TECHNIQUE: AP, lateral, and mortise views of the left ankle. FINDINGS: No fracture. Alignment is anatomic. No erosions. Joint spaces are maintained. Soft tissue swelling overlying the lateral malleolus. XR/XR ankle LT min 3V IMPRESSION: Soft tissue swelling overlying the lateral malleolus. Electronically signed by: Alice English MD 01/24/2024 04:47 PM EDT
== END 2024-01-23 09:09 | disposition home or self-care (01) ==
LOC: HO.XRAY 09:08
PROVIDERS: PCP Internal Medicine; Visit Provider Internal Medicine
DX: S93.492A Sprain of other ligament of left ankle, initial encounter (principal)
CPT/HCPCS: 73610

== ENCOUNTER 2024-04-09 09:34 | Outpatient (AMB) | payer BC, SELFPAY ==
--- NOTE | 2024-04-09 09:37 | A.OFFVIS_ITS ---
Vital Signs 04/09/24 09:38 Height 6 ft Weight 216 lb 0.848 oz BMI 29.3 BP 112/56 L Blood Pressure Location Lt brachial Position Sitting Pulse 65 Intake Visit Reasons: f/up Import Specialist Required: No Accompanied by: Self / Same As Patient Allergies Iodinated Contrast Media Allergy (Verified 11/28/23 11:06) unknown Medication List - Last Reconciled 04/09/24 by Royer Brunner MD aspirin (Adult Low Dose Aspirin) 81 mg PO DAILY atorvastatin 40 mg PO DAILY coenzyme Q10 (Co Q-10) 10 mg PO DAILY lisinopril 10 mg PO DAILY multivitamin 1 tab PO DAILY ticagrelor (Brilinta) 90 mg PO BID 90 days HPI Comments Details: Jose returns for follow-up regarding coronary artery disease. In the past, he has had complaints of chest pains. He had a stress test where he reached 10.8 METS on Avi protocol, but no clear-cut angina. EKG was however, abnormal. This led to a coronary CTA where there was significant LAD disease. Following this, underwent cardiac catheterization and LAD stenting. He feels some shortness of breath with activity. However, not entirely clear if it is deconditioning or not. He does not have any clear-cut exertional or rest angina. Compliant with all his medications. Brilinta is quite expensive but otherwise okay. He is very thankful and grateful for all the care he is receiving and seems overall quite satisfied. [facility] Medical History (Updated 12/07/23 @ 13:10 by Royer Brunner MD) HTN (hypertension) Chest pressure Surgical History History of back surgery Family History Mother Heart disease Ovarian cancer Father CHF (congestive heart failure) Social History Household Members: Children Housing: Homeless Do you presently have visiting nurse or other home services: No Alcohol intake: current Alcohol intake frequency: holidays/special occasions only Patient Tobacco Use Status: Never used Tobacco Substance Use Type: Marijuana service: No Review of Systems Const Denies chills, Denies fatigue, Denies fever(s), Denies weight gain and Denies weight loss ENT Denies dizziness Card Denies chest pain, Denies leg edema, Denies lightheadedness, Denies palpitations, Reports dyspnea on exertion, Denies orthopnea and Denies other Resp Denies cough and Reports dyspnea on exertion GI Denies hematochezia and Denies change in stool character Musc Denies abnormal gait, Denies muscle weakness, Denies numbness, Denies radiating pain into limb and Denies tingling Neuro Denies abnormal gait, Denies dizziness, Denies numbness and Denies tingling Endo Denies fatigue and Denies palpitations Physical Exam Vital Signs: Last Vital Signs Pulse 65 04/09/24 09:38 BP 112/56 L 04/09/24 09:38 BMI result Body Mass Index 29.3 Const General: comfortable and no acute distress Orientation/consciousness: patient oriented x3 HEENT Other: Unremarkable Head: Yes normal to inspection Neck Neck: Yes normal visual inspection Chest Chest palpation & inspection: normal inspection of the chest Resp Auscultation: clear to auscultation bilaterally Cardio Palpation: normal PMI Heart sounds: S1 normal heart sound present, S2 normal heart sound present, no gallops, no murmurs and no rubs GI Palpation (GI): Soft to palpation Back/Spine/Pelvis Other: unremarkable Skin General skin exam: no rashes or lesions noted Neuro General: patient oriented x3 Extrem General: Yes normal to inspection Psych Mental Status: mental status grossly normal Assessment & Plan Assessment & Plan (1) Atherosclerotic cardiovascular disease: Code(s): I25.10 - Atherosclerotic heart disease of [place] coronary artery without angina pectoris Category: Medical (2) Stented coronary artery: Code(s): Z95.5 - Presence of coronary angioplasty implant and graft Category: Surgical (3) Other and unspecified hyperlipidemia: Code(s): E78.5 - Hyperlipidemia, unspecified Category: Medical (4) HTN (hypertension): Code(s): I10 - Essential (primary) hypertension Category: Medical Plan Cardiac catheterization data reviewed. Essentially PSYCHOLOGY DEPARTMENT CHAIR of the proximal LAD with ahdca-co-wrig collateral; mid LAD also has severe stenosis. Status post PCI to LAD. Minimal disease in the RCA and circumflex. In the echocardiogram, LVEF is 65-70%. Normal filling pattern on Doppler. Valves are unremarkable. Overall, believe the coronary disease itself is stable. With regard to the question of shortness of breath, not clear if it is from deconditioning or from Brilinta. Does not sound anginal. We discussed about another echocardiogram but decided to hold off for the time being. He wants to try and lose some weight and see if that helps. Also we can switch Brilinta to Plavix especially as it is quite expensive. If he is still feels this way, we will repeat an echocardiogram. With regard to cholesterol, continue statins. LDL cholesterol levels have improved significantly from 153-74mg/dl. Triglycerides 65 mg/dL. For blood pressure, on lisinopril. He has completed cardiac rehabilitation at [facility].. Follow-up in about 6 months' time. In the interim, he will contact us with any concerns. Medications: New clopidogrel (Plavix) 75 mg PO DAILY 90 tabs 1RF Discontinued ticagrelor (Brilinta) Discontinued Reason: Doctor's Order 90 mg PO BID 90 days 180 tabs 3RF Coding Level of Care Code Est Pt Level 4 (85741) Diagnoses Atherosclerotic cardiovascular disease I25.10 Stented coronary artery Z95.5 Other and unspecified hyperlipidemia E78.5 HTN (hypertension) I10
--- OUTSIDE RECORDS SUMMARY | 2024-04-09 09:37 | XMS_ITS ---
Author Organization Ab Barraza MD Address [address] [place] [phone] Care Team Providers Care Extractor Machine Operator Name Role Phone Ab Barraza Primary Care Provider REASON FOR VISIT PULLED BACK OUT MEDICATIONS Medication SIG (Take, Route, Frequency, Duration) Notes Start Date End Date Status Cyclobenzaprine HCl 5 MG 1 tablet at bed time as needed Orally twice a day for 10 days 01/26/2024 Active Encounters Encounter Location Date Provider Diagnosis Ab Barraza MD [address] [place] [address] [place] [phone] 01/26/2024 Ab Barraza PLAN OF TREATMENT Medication Medication Name Sig Start Date Stop Date Notes Cyclobenzaprine HCl 5 MG 1 tablet at bed time as needed Orally twice a day for 10 days 01/26/2024 Next Appt Details Provider Name:Ab weaver, 06/22/2024 07:30:00 AM, [address] [place] [address], [address], [phone], Provider Name:Ab weaver, 06/29/2024 09:30:00 AM, [address] [place] [address], [address], [phone],
--- OUTSIDE RECORDS SUMMARY | 2024-04-09 09:37 | XMS_ITS | Continuity of Care Document ---
Author Organization [facility] Address [address] [place] [phone] Care Team Providers Care Senior Estimator Name Role Phone Ab Barraza MD Primary Care Physician [phone] Encounter [facility] [place] Date(s): 01/04/24 - 03/28/[address] [address]- Encounter Diagnosis Atherosclerotic heart disease of [place] coronary artery without angina pectoris (Final) - Presence of coronary angioplasty implant and graft(Final) - Discharge Disposition: A-D/C Home Attending Physician: Wellington Kelley MD Admitting Physician: Wellington Kelley MD Referring Physician: Wellington Kelley MD Encounter Type: Disch Recurring OP Allergies, Adverse Reactions, Alerts Substance Criticality Severity Reaction Reaction Severity Status Contrast Dye Unable to assess criticality Persistent Mild eyes swelling runny nose itchy eyes Active Medications aspirin 81 mg oral delayed release tablet 81 mg, 1, tablet, By Mouth, Daily, Refills 0, Maintenance, 12/02/23 8:26:00 AM EDT, Partial fill upon patient request if the prescription is for a schedule II opioid drug. Start Date: 12/02/23 Status: Ordered Repeat number: 1 atorvastatin 40 mg oral tablet 1 tablet = 40 mg, By Mouth, Daily, 0 Refills, Maintenance, 12/02/23 8:26:00 AM EDT, Partial fill upon patient request if the prescription is for a schedule II opioid drug. Start Date: 12/02/23 Status: Ordered Repeat number: 1 Augmentin 875 mg-125 mg oral tablet 6 each, 0 Refill(s), PLEASE SEE ATTACHED FOR DETAILED DIRECTIONS, 0 Refills, 12/02/23 2:04:00 PM EDT, Partial fill upon patient request if the prescription is for a schedule II opioid drug. Start Date: 12/02/23 Status: Ordered Repeat number: 1 Benadryl 25 mg oral capsule 1 capsule = 25 mg, By Mouth, Once, 0 Refills, Maintenance, 12/02/23 8:17:00 AM EDT, Partial fill upon patient request if the prescription is for a schedule II opioid drug. Start Date: 12/02/23 Status: Ordered Repeat number: 1 benzonatate 100 mg oral capsule 21 each, 0 Refill(s), TAKE 2 CAPSULES BY MOUTH 3 TIMES A DAY NEEDED FOR COUGH., 0 Refills, 12/02/23 2:05:00 PM EDT, Partial fill upon patient request if the prescription is for a schedule II opioiddrug. Start Date: 12/02/23 Status: Ordered Repeat number: 1 Brilinta (ticagrelor) 90 mg oral tablet 1 tablet = 90 mg, By Mouth, 2 times a day, # 60 tablet, 0 Refills, Maintenance, 12/02/23 11:10:00 AMEDT, [facility], Partial fill upon patient request if the prescription is for a schedule II opioid drug., 183, cm, 12/02/23 9:00:00 EDT, Height, 97.8, kg, 12/02/23 9:00:00 EDT, Dry Weight Start Date: 12/02/23 Status: Ordered Quantity: 60.0 Unit: tablet Repeat number: 1 Famotidine = 20 mg, 0 Refills, Maintenance, 12/02/23 8:13:00 AM EDT, Partial fill upon patient request if the prescription is for a schedule II opioid drug. Start Date: 12/02/23 Status: Ordered Repeat number: 1 famotidine 20 mg oral tablet 3 each, 0 Refill(s), TAKE THE MORNING AND EVENING OF THE DAY BEFORE PROCEDURE AND THEN THE MORNING OF PROCEDURE., Refills 0, 12/02/23 2:05:00 PM EDT, Partial fill upon patient request if the prescription is for a schedule II opioid drug. Start Date: 12/02/23 Status: Ordered Repeat number: 1 lisinopril 10 mg oral tablet 10 mg, 1, tablet, By Mouth, Daily, Refills 0, Maintenance, 12/02/23 8:18:00 AM EDT, Partial fill upon patient request if the prescription is for a schedule II opioid drug. Start Date: 12/02/23 Status: Ordered Repeat number: 1 Multivitamin 0 Refills, Maintenance, 12/02/23 8:27:00 AM EDT, Partial fill upon patient request if the prescription is for a schedule II opioid drug. Start Date: 12/02/23 Status: Ordered Repeat number: 1 nitroglycerin 0.4 mg sublingual tablet 25 each, 0 Refill(s), USE DIRECTED SUBLINGUAL EVERY 5 MINS FOR PAIN X3 30 DAYS, 0 Refills, 12/02/23 2:05:00 PM EDT, Partial fill upon patient request if the prescription is for a schedule II opioiddrug. Start Date: 12/02/23 Status: Ordered Repeat number: 1 Nitrostat 0.4 mg sublingual tablet 0 Refill(s), 0 Refills, 10/03/23 8:00:00 PM EDT, Partial fill upon patient request if the prescription is for a schedule II opioid drug. Start Date: 10/03/23 Status: Ordered Repeat number: 1 oxyCODONE 5 mg oral tablet 24 each, 0 Refill(s), TAKE 1 TABLET BY MOUTH EVERY 4 HOURS NEEDED FOR PAIN, Refills 0, 12/02/23 2:05:00 PM EDT, Partial fill upon patient request if the prescription is for a schedule II opioid drug. Start Date: 12/02/23 Status: Ordered Repeat number: 1 PredniSONE = 20 mg, By Mouth, Daily, 0 Refills, Maintenance, 12/02/23 8:11:00 AM EDT, Partial fill upon patientrequest if the prescription is for a schedule II opioid drug. Start Date: 12/02/23 Status: Ordered Repeat number: 1 predniSONE 20 mg oral tablet 3 each, 0 Refill(s), TAKE THE MORNING AND EVENING OF THE DAY BEFORE PROCEDURE AND THEN THE MORNING OF PROCEDURE., 0 Refills, 12/02/23 2:05:00 PM EDT, Partial fill upon patient request if the prescription is for a schedule II opioid drug. Start Date: 12/02/23 Status: Ordered Repeat number: 1 Note * Event Display: Cardiac Rehab Telemetry Report Authored Date: * Event Display: Cardiac Rehab Telemetry Report Authored Date: * Event Display: Cardiac Rehab Telemetry Report Authored Date: Patient Care team information Care Team Personnel Name: Ab Barraza MD Position: Reference Physician Member Role: PCP Address: [address] [place] [address] Ab Barraza [place], [place] [address] Telecom: [phone] Name: Camilla Reynolds RN Position: S RN Member Role: Primary Care Nurse Name: Jodie Frias RN Position: S RN Member Role: Primary Care Nurse Care Team Related Persons Name: JANNY MASON Insurance Providers Guarantor name: [facility] Information #: 1 Payer: [employer] Member Number: [id number] Policy Number: NA Group Number: [id number] Health Plan Information #: 2 Payer: [employer] Member Number: [id number] Policy Number: NA Group Number: [id number]
--- OUTSIDE RECORDS SUMMARY | 2024-04-09 09:37 | XMS_ITS ---
Author Organization Ab Barraza MD Address [address] [place], [place] [phone] Care Team Providers Care Contact Lens Flashing Puncher Name Role Phone Ab Barraza Primary Care Provider ALLERGIES No Known Allergies RESULTS Component Value Reference Range Notes XR ankle LT min 3V Reviewed date:01/26/2024 08:13:21 AM Interpretation: Performing Lab: Notes/Report: [address] [address] XRay Report Signed Patient: Jose Rivera MR#: [id number] : 1975 Acct:[id number] Age/Sex: 48 / M ADM Date: 01/23/24 Loc: HO.XRAY Attending Dr: Ab Barraza MD Ordering Physician: Ab Barraza MD Date of Service: 01/23/24 Procedure(s): XR ankle LT min 3V Accession Number(s): [id number] cc: Ab Barraza MD EXAMINATION: XR ANKLE, LEFT CLINICAL INFORMATION: Sprain COMPARISON: None available. TECHNIQUE: AP, lateral, and mortise views of the left ankle. FINDINGS: No fracture. Alignment is anatomic. No erosions. Joint spaces are maintained. Soft tissue swelling overlying the lateral malleolus. XR/XR ankle LT min 3V IMPRESSION: Soft tissue swelling overlying the lateral malleolus. Electronically signed by: Alice English MD 01/24/2024 04:47 PM EDT Dictated By: Alice English MD Signed By: <Electronically signed by Alice English MD in OV> 01/24/24 1647 DD/ 8 TD/TT: 01/23/24924 Photographer: IDRIS REASON FOR VISIT 2 MO F/U, check left ankle twisted 1 week ago walking the dog MEDICATIONS Medication SIG (Take, Route, Frequency, Duration) Notes Start Date End Date Status Lisinopril 10 MG TAKE 1 TABLET BY REJI TH EVERY DAY FOR 30 DAYS Orally Once a day Active ProAir HFA 108 (90 Base) MCG/ACT 2 puffs as needed Inhalation every 4 hrs for 30 days Active Brilinta 90 MG 1 tablet Orally Twic e a day Active Nitrostat 0.4 MG as directed Sublingu al every 5 mins for pain x3 for 30 days 10/04/2023 Active Atorvastatin Calcium 40 MG TAKE 1 TABLET BY MOUTH EVERY DAY FOR 30 DAYS Active IMMUNIZATIONS Vaccine Route Administration Date Status Comme nts Fluarix Quadrivalent - 150 Unknown 01/23/2024 Refused PROBLEMS Problem Type ICD Code Onset Dates Problem Status W/U Status Risk SNOMED Code Notes Problem History of heart artery stent (Z95.5) Active confirmed 090426251 VITAL SIGNS BMI 30.99 kg/m2 01/23/2024 Blood pressure systolic 112 mm Hg 01/23/20 24 Blood pressure diastolic 66 mm Hg 024 Height 70 in 01/23/2024 Weight 216 lbs 01/23/2024 Encounters Encounter Location Date Provider Diagnosis Ab Barraza MD [address] [place] [address] [place] [phone] 01/23/2024 Ab Barraza Essential hypertension I10 ; Sprain of other ligament of left ankle, initial encounter S93.492A and History of heart artery stent Z95.5 ASSESSMENTS Encounter Date Diagnosis Assessment Notes Treatment Notes Treatment Clinical Notes 01/23/2024 Essential hypertension (ICD-10 - I10) doing well on meds, will continue current regiment 01/23/2024 Sprain of other ligament of left ankle, initial encounter (ICD-10 - S93.492A) ORDER PRINTED AND GIVEN TO JOSE, pending diagnostic testing 01/23/2024 History of heart artery stent (ICD-10 - Z95.5) doing well and is getting a lot of exercise, will continue current regiment PLAN OF TREATMENT Medication Medication Name Sig Start Date Stop Date Notes Lisinopril 10 MG TAKE 1 TABLET BY REJI TH EVERY DAY FOR 30 DAYS Orally Once a day Brilinta 90 MG 1 tablet Orally Twice a day Treatment Notes Assessment Notes Essential hypertension doing well on med s, will continue current regiment Sprain of other ligament of left ankle, initial encounter ORDER PRINTED AND GIVEN TO devang PAUL diagnostic testing History of heart artery stent doing well and is getting a lot of exercise, will continue current regiment Next Appt Details Provider Name:Ab weaver, 06/22/2024 07:30:00 AM, [address] [facility], [address], [place], [place], [phone], Provider Name:Ab weaver, 06/29/2024 09:30:00 AM, [address] [facility], [address], [place], [place], [phone], Progress Notes * Examination Category Sub-Category Detail Notes General Examination GENERAL APPEARANCE: alert, w ell hydrated, in no distress HEART: regular rate and rhy thm, no murmurs, rubs, gallops LUNGS: no wheezes, rales, r honchi, good air movement, clear to auscultation bilaterally SKIN: good turgor EXTREMITIES: abnormal with swelli ng and tendrness in lat left ankle
[2024-04-09 09:38] VITALS: BP 112/56; PULSE 65; BMI 29.3
--- OUTSIDE RECORDS SUMMARY | 2024-04-09 09:38 | XMS_ITS ---
Author Organization Ab Barraza MD Address [address] [place], [place] [id number] Care Team Providers Care Mdm Sr Name Role Phone Ab Barraza Primary Care Provider RESULTS Component Value Reference Range Notes Liver Panel Reviewed date:12/29/2023 06:47:47 PM Interpretation: Performing Lab:[facility], [address] [place] [id number] Notes/Report: Bilirubin Total 0.7 0.0-1.0 mg/dL Bilirubin Direct 0.3 0.0-0.5 mg/dL Aspartate Amino Transferase 38 5-37 U/L Alanine Aminotransferase 40 0-40 U/L Total Protein 6.8 6.5-8.0 g/dL Albumin Level 4.3 3.5-5.0 g/dL Alkaline Phosphatase 46 39-117 U/L Lipid Panel with Reflex Reviewed date:12/30/2023 08:35:56 AM Interpretation: Performing Lab:[facility], [address] [place] [phone] Notes/Report: Triglycerides 75 <150 mg/dL Desirable Triglyceride: less than 150 mg/dL Borderline High Triglyceride 150-199 mg/dL High Triglyceride: 200-499 mg/dL Very High Triglyceride: greater than or equal to 5OO mg/dL Cholesterol 131 <200 mg/dL Desirable Cholesterol: less than 200 mg/dL Borderline High Cholesterol: 200-239 mg/dL High Cholesterol: greater than 239 mg/dL LDL Cholesterol Calculated 73 <100 mg/dL Desirable LDL: less than 100 mg/dL Near Optimal/Above Optimal LDL: 110-129 mg/dL Borderline High LDL: 130-159 mg/dL High LDL: 160-189 mg/dL Very High LDL: greater than or equal to 190 mg/dL HDL Cholesterol 43 >40 mg/dL Desirable HDL: greater than 40 mg/dL Note: This HDL assay may give artificially low results in patients with liver disease. REASON FOR VISIT FASTING LIPIDS IMMUNIZATIONS Vaccine Route Administration Date Status Comme nts Fluarix Quadrivalent - 150 Unknown 12/29/2023 Refused Encounters Encounter Location Date Provider Diagnosis Ab Barraza MD [address] [place] [address] Drive [address] [place], [place] [phone] 12/29/2023 Ab Barraza Elevated cholesterol E78.00 ASSESSMENTS Encounter Date Diagnosis Assessment Notes Treatment Notes Treatment Clinical Notes 12/29/2023 Elevated cholesterol (ICD-10 - E78.00) PLAN OF TREATMENT Next Appt Details Provider Name:Ab weaver, 06/22/2024 07:30:00 AM, [address] [place] [address], Suite [facility], [place], [place], [phone], Provider Name:Ab weaver, 06/29/2024 09:30:00 AM, [address] [place] [address], [address], [place], [place], [phone],
--- OUTSIDE RECORDS SUMMARY | 2024-04-09 09:38 | XMS_ITS | Patient Health Record ---
Author Organization [facility] Address [address] [place] [address] Care Team Providers Care Head Of Partner Development Name Role Phone Ab Barraza MD Primary Care Provider Tyree Norton Unavailable [phone] ALLERGIES No Known Allergies REASON FOR REFERRAL No Information IMMUNIZATIONS Vaccine Route Administration Date Status Comme nts Influenza Unknown 05/11/2022 Refused SOCIAL HISTORY Tobacco Use: Social History Observation Description Date Details (start date - stop date) Never Smoker NA - NA Sex Assigned At : Social History Observation Description Sex Assigned At Unknown Tobacco Use/Smoking Question Answer Notes Patient is a nonsmoker Alcohol Screen Question Answer Notes Did you have a drink contain ing alcohol in the past year? Yes How often did you have a dri nk containing alcohol in the past year? Never (0 point) How many drinks did you have on a typical day when you were drinking in the past year? 1 or 2 drinks (0 point) Points 0 Interpretation Negative PROBLEMS Problem Type ICD Code Onset Dates Problem Status W/U Status Risk SNOMED Code Notes Problem Colon cancer screening (Z12.11) Active confirmed 644899947 Problem Preprocedural examination (Z01.818) Active confirmed [id number] Problem Diverticulosis of large intestine without perforation or abscess without bleeding (K57.30) Active confirmed Diverticul ar disease of colon (767573113) PLAN OF TREATMENT Future Test Test Name Order Date COLONOSCOPY 05/11/2022 Insurance Providers Payer Name Payer Address Payer Phone Subscriber Number Group Number Insured Name Patient Relationship to Insured Coverage Start Date Coverage End Date [facility] [address] [place] [address] [phone] [id number] ALIN BEVERLY Self - patient is the insured MEDICAL (GENERAL) HISTORY Medical History History ICD Code Denies [place],DM,CVA,Lung disease,renal dise ase Surgical History Surgery Date(Month/Year) Lumbar discectomy Tear duct surgery
--- OUTSIDE RECORDS SUMMARY | 2024-04-09 09:38 | XMS_ITS | Patient Health Record ---
Author Organization Ab Barraza MD Address [address] [place], [place] [id number] Care Team Providers Care Air Pumper Name Role Phone Ab Barraza Primary Care Provider ALLERGIES No Known Allergies RESULTS Component Value Reference Range Notes Complete Blood Count Auto Di ff Reviewed date:06/21/2023 12:43:04 PM Interpretation: Performing Lab:[facility], [address] [place] [phone] Notes/Report: White Blood Count 9.5 4.8-10.8 X10*3/uL Red Blood Count 5.11 4.60-5.80 X10*6/uL Hemoglobin 15.2 14.0-18.0 g/dl Hematocrit 44.3 42.0-52.0 % Mean Corpuscular Volume 86.7 80.0-98.0 fL Mean Corpuscular Hemoglobin 29.7 27.0-33.0 pg Mean Corpuscular HGB Conc 34.3 31.0-36.0 g/dl Red Cell Distribution Width 12.0 11.0-16.0 % Platelet Count 325 160-400 X10*3/uL Mean Platelet Volume 10.1 9.4-12.4 fL Neutrophils Percent Auto 45.9 45-73 % Imm Gran Pct Auto 0.2 0.0-0.4 % Lymphocytes Percent Auto 42.8 20-40 % Monocytes Percent Auto 6.6 2-11 % Eosinophils Percent Auto 4.0 0-4 % Basophils Percent Auto 0.5 0-2 % NRBC Pct Auto 0.0 0.0-0.2 /100WBC Neutrophils Absolute Auto 4.3 2.0-8.3 x10*3/u L Imm Gran Abs Auto 0.02 0.00-0.03 X10*3/uL Lymphocytes Absolute Auto 4.0 1.2-4.9 X10*3/u L Monocytes Absolute Auto 0.6 0.1-1.2 X10*3/uL Eosinophils Absolute Auto 0.4 0.0-0.4 X10*3/u L Basophils Absolute Auto 0.1 0.0-0.2 X10*3/uL NRBC Abs Auto 0.000 0.0-0.012 X10*3/uL Comprehensive [place]. Panel Fa st Reviewed date:06/21/2023 02:28:20 PM Interpretation: Performing Lab:[address] [phone] Notes/Report: Sodium 141 135-145 mmol/L Potassium 4.5 3.3-5.1 mmol/L Chloride 105 96-108 mmol/L Carbon Dioxide 26 22-29 mmol/L Anion Gap 15 12-20 Blood Urea Nitrogen 18 9-16 mg/dL Creatinine 1.09 0.5-1.4 mg/dL Estimated Glomerular Filt Rate > 60 NOTE: For -Azerbaijani individuals, multiply the result by 1.210. Chronic Kidney Disease: Estimated GFR < 60 mL/min/1.73m2 Severe Kidney Disease: Estimated GFR < 15 mL/min/1.73m2 Glucose Fasting 86 60-99 mg/dL Calcium 9.9 8.4-10.2 mg/dL Bilirubin Total 0.7 0.0-1.0 mg/dL Aspartate Amino Transferase 29 5-37 U/L Alanine Aminotransferase 47 0-40 U/L Total Protein 7.6 6.5-8.0 g/dL Albumin Level 4.7 3.5-5.0 g/dL Alkaline Phosphatase 43 39-117 U/L Lipid Panel Reviewed date:06/21/2023 02:28:28 PM Interpretation: Performing Lab:[address] [phone] Notes/Report: Triglycerides 106 <150 mg/dL Desirable Triglyceride: less than 150 mg/dL Borderline High Triglyceride 150-199 mg/dL High Triglyceride: 200-499 mg/dL Very High Triglyceride: greater than or equal to 5OO mg/dL Cholesterol 220 <200 mg/dL Desirable Cholesterol: less than 200 mg/dL Borderline High Cholesterol: 200-239 mg/dL High Cholesterol: greater than 239 mg/dL LDL Cholesterol Calculated 153 <100 mg/dL Desirable LDL: less than 100 mg/dL Near Optimal/Above Optimal LDL: 110-129 mg/dL Borderline High LDL: 130-159 mg/dL High LDL: 160-189 mg/dL Very High LDL: greater than or equal to 190 mg/dL HDL Cholesterol 46 >40 mg/dL Desirable HDL: greater than 40 mg/dL Note: This HDL assay may give artificially low results in patients with liver disease. PSA,Total (Free>4and<10) Reviewed date:06/21/2023 12:37:41 PM Interpretation: Performing Lab:[address] [phone] Notes/Report: PSA,Total (Free>4and<10) 0.59 0.00-4.00 ng/mL A Free PSA was not performed: The percentage of Free PSA can be used to enhance the differentiation of prostate cancer from benign prostatic disease in subjects whose PSA levels are between 4.0 and 10.0 ng/mL. For subjects whose PSA levels are below 4.0 or above 10.0 ng/mL, the risk of prostate cancer is determined on the basis of the PSA alone. Therefore the % Free PSA is recommended only for those subjects whose PSA levels are between 4.0 and 10.0 ng/mL. PSA methodology: Sams Alinity i Chemiluminescent Microparticle Immunoassay (CMIA) UA ClnCatch+Micro w/rflx Cul t Reviewed date:06/21/2023 12:51:27 PM Interpretation: Performing Lab:[address] [phone] Notes/Report: Urine, Clean Catch Color Urine Yellow Appearance Urine Clear PH 5.5 5.0-9.0 Glucose Urine UA Negative Negative mg/dL Urine Blood Negative Negative Specific [place] - Urine 1.025 1.005-1.025 Urine Protein Negative Neg-Trace mg/dL Urine Ketones Negative Negative mg/dL Nitrite Urine Negative Negative Leukocyte Esterase Urine Negative Negative RBC Urine 0-2 0-2 /HPF WBC Urine 0-5 0-5 /HPF Squamous Epithelial Cell Urine 0-2 0-2 /HPF Bacteria Urine None Seen None Seen Hyaline Casts Urine 0-2 0-2 /LPF Complete Blood Count Auto Di ff Reviewed date:08/22/2023 06:38:09 PM Interpretation: Performing Lab:[facility], [address] [place] [phone] Notes/Report: White Blood Count 21.1 4.8-10.8 X10*3/uL Red Blood Count 5.25 4.60-5.80 X10*6/uL Hemoglobin 15.9 14.0-18.0 g/dl Hematocrit 43.9 42.0-52.0 % Mean Corpuscular Volume 83.6 80.0-98.0 fL Mean Corpuscular Hemoglobin 30.3 27.0-33.0 pg Mean Corpuscular HGB Conc 36.2 31.0-36.0 g/dl Red Cell Distribution Width 11.9 11.0-16.0 % Platelet Count 343 160-400 X10*3/uL Mean Platelet Volume 9.4 9.4-12.4 fL Neutrophils Percent Auto 84.8 45-73 % Imm Gran Pct Auto 0.3 0.0-0.4 % Lymphocytes Percent Auto 10.4 20-40 % Monocytes Percent Auto 4.2 2-11 % Eosinophils Percent Auto 0.0 0-4 % Basophils Percent Auto 0.3 0-2 % NRBC Pct Auto 0.0 0.0-0.2 /100WBC Neutrophils Absolute Auto 17.9 2.0-8.3 x10*3/u L Imm Gran Abs Auto 0.07 0.00-0.03 X10*3/uL Lymphocytes Absolute Auto 2.2 1.2-4.9 X10*3/u L Monocytes Absolute Auto 0.9 0.1-1.2 X10*3/uL Eosinophils Absolute Auto 0.0 0.0-0.4 X10*3/u L Basophils Absolute Auto 0.1 0.0-0.2 X10*3/uL NRBC Abs Auto 0.000 0.0-0.012 X10*3/uL Prothrombin Time INR Reviewed date:08/22/2023 06:38:53 PM Interpretation: Performing Lab:[facility], [address] [place] [phone] Notes/Report: Prothrombin Time 11.6 11.1-13.3 SEC INTERNATIONAL NORM RATIO 1.0 0.9-1.1 INTERNATIONAL NORMALIZED RATIO (INR) REFERENCE RANGES Reference Range For patients not on anticoagulant therapy: 0.9 - 1.1 INR ranges for oral anticoagulant therapy: For prevention and treatment of venous thrombosis and pulmonary embolism: 2.0 - 3.0 For acute myocardial infarction with aspirin therapy: 2.0 - 3.0 For acute myocardial infarction without aspirin therapy: 3.0 - 4.0 For patients with mechanical prosthetic heart valves: 2.5 - 3.5 Partial Thromboplastin Time Reviewed date:08/22/2023 06:37:11 PM Interpretation: Performing Lab:[facility], [address] [place] [phone] Notes/Report: Partial Thromboplastin Time 30.6 26.0-36.8 SEC For information regarding the monitoring of direct thrombin inhibitors, please refer to Pharmacy. Comprehensive Met. Panel Reviewed date:08/22/2023 06:38:44 PM Interpretation: Performing Lab:[facility], [address] [place] [phone] Notes/Report: Sodium 140 135-145 mmol/L Potassium 3.7 3.3-5.1 mmol/L Chloride 106 96-108 mmol/L Carbon Dioxide 18 22-29 mmol/L Anion Gap 20 12-20 Blood Urea Nitrogen 18 9-16 mg/dL Creatinine 0.99 0.5-1.4 mg/dL Creatinine Clr Calc Pharmacy 110.4 eGFR (calculated from the MDRD study equation) and eCrCl (calculated from the Cockcroft-Gault equation) are based on different parameters and may not yield comparable results. If eCrCl result is absurd, please check patient's height/weight. Estimated Glomerular Filt Rate > 60 NOTE: For -Azerbaijani individuals, multiply the result by 1.210. Chronic Kidney Disease: Estimated GFR < 60 mL/min/1.73m2 Severe Kidney Disease: Estimated GFR < 15 mL/min/1.73m2 Glucose Random 136 60-115 mg/dL Calcium 10.5 8.4-10.2 mg/dL Bilirubin Total 1.2 0.0-1.0 mg/dL Aspartate Amino Transferase 26 5-37 U/L Alanine Aminotransferase 45 0-40 U/L Total Protein 8.0 6.5-8.0 g/dL Albumin Level 4.9 3.5-5.0 g/dL Alkaline Phosphatase 51 39-117 U/L Lactic Acid Reviewed date:08/23/2023 12:40:31 PM Interpretation: Performing Lab:[facility], [address] [place] [phone] Notes/Report: Lactic Acid 1.6 0.5-2.0 mmol/L Magnesium Reviewed date:08/22/2023 06:38:20 PM Interpretation: Performing Lab:[facility], [address] [place] [phone] Notes/Report: Magnesium 1.6 1.6-2.6 mg/dL Troponin-I High Sensitivity Reviewed date:08/22/2023 06:39:03 PM Interpretation: Performing Lab:[facility], [address] [place] [phone] Notes/Report: Troponin-I High Sensitivity < 2.7 <3.5-35.0 ng/L The Sams high sensitivity Troponin-I results should be used in conjunction with other diagnostic information such as ECG, clinical observations and information, and patient symptoms to aid in the diagnosis of [place]. Lipase Reviewed date:08/22/2023 06:35:35 PM Interpretation: Performing Lab:[facility], [address] [place] [phone] Notes/Report: Lipase 34 8-78 U/L SARS-CoV2/FLU/RSV Reviewed date:08/22/2023 06:39:17 PM Interpretation: Performing Lab:[address] [phone] Notes/Report: Influenza A PCR NEGATIVE Negative Influenza B PCR NEGATIVE Negative Resp Syncy Virus RNA Qual PCR NEGATIVE Negative SARS COV2 PCR INHOUSE NEGATIVE Negative All test results must be correlated with clinical findings. Negative results do not preclude SARS-CoV2, influenza A virus, influenza B virus and/or RSV infection and should not be used as the sole basis for treatment or other patient management decisions. Negative results must be combined with clinical observations, patient history, and epidemiological information. This test has not been evaluated for monitoring treatment of infection. This test has been authorized by the FDA under an Emergency Use Authorization (EUA) for use by authorized laboratories. Testing performed on the [employer] GeneXpert utilizing real-time RT-PCR. All SARS CoV2 and positive influenza A/B results are reported to [facility]. Blood Culture (First) Reviewed date:08/28/2023 06:06:58 PM Interpretation: Performing Lab:[facility], [address] [place] [phone] Notes/Report: Blood Culture (First) No growth after 5 days. Blood Culture (Second) Reviewed date:08/28/2023 06:06:50 PM Interpretation: Performing Lab:[facility], [address] [place] [phone] Notes/Report: Blood Culture (Second) No growth after [address] abdomen pelvis w con Reviewed date:10/04/2023 10:56:40 AM Interpretation:see back 10-04-2023 Performing Lab: Notes/Report: [address] [place] [address] CT Scan Report Signed Patient: Jose Rivera MR#: [id number] : 1975 Acct:[id number] Age/Sex: 48 / M ADM Date: 08/22/23 Loc: HO.ED Attending Dr: Ordering Physician: Daisy Pantoja DO Date of Service: 08/22/23 Procedure(s): CT abdomen pelvis w IV con Accession Number(s): [id number] cc: Ab Barraza MD; Daisy Pantoja DO EXAMINATION: CT ABDOMEN AND PELVIS WITH CONTRAST CLINICAL INFORMATION: Reason for Exam upper abdominal pain vomiting WBC count 21 COMPARISON: None available. TECHNIQUE: Multidetector volumetric images were obtained from the superior aspect of the liver through the pubic symphysis following administration 85 mL of Omnipaque 350 intravenous contrast. Sagittal and coronal reformatted images were obtained on the technologist's workstation. Oral contrast: No This CT examination was performed using dose optimization techniques as appropriate, variously including the following: *Automated exposure control *Adjustment of mA and/or kV according to patient size (this includes techniques or standardized protocols for targeted exams where dose is matched to indication/reason for exam; i.e. extremities or head) *Use of iterative reconstruction technique DLP: 709 mGy-cm FINDINGS: LUNG BASES: The visualized lung bases are unremarkable. Coronary artery calcifications are present. LIVER, GALLBLADDER, AND BILIARY TREE: There is hypoattenuation of the liver suggesting steatosis. No focal hepatic lesion or biliary ductal dilatation is present. Gallbladder is physiologically distended with a few gallstones. There is mild pericholecystic stranding, raising suspicion for cholecystitis. PANCREAS: Unremarkable. SPLEEN: Unremarkable. ADRENAL GLANDS: Unremarkable. KIDNEYS AND URETERS: Bilateral nephrograms are symmetric. No hydronephrosis or obstructing calculus identified. BLADDER: Unremarkable. GASTROINTESTINAL TRACT: Colonic diverticulosis is noted. Assessment for wall thickening in some segments of the colon is limited due to luminal collapse, though no significant pericolonic stranding is seen to strongly suggest a colitis. No evidence of bowel obstruction. The appendix is unremarkable. No free fluid or free air is seen. ABDOMINAL WALL: No significant hernia is appreciated. LYMPH NODES: Normal. VASCULAR: Scattered atherosclerotic calcifications. PELVIC VISCERA: Unremarkable. OSSEOUS STRUCTURES: Unremarkable. CT/CT abdomen pelvis w IV con IMPRESSION: 1. Cholelithiasis with mild pericholecystic stranding, raising suspicion for cholecystitis. This may be further assessed with ultrasound. 2. Coronary artery calcifications. Correlation with cardiac risk factors is recommended. Dictated By: Fausto Casas MD Signed By: <Electronically signed by Fausto Casas MD in OV> 08/23/23 0112 DD/ 2315 TD/TT: [employer] Professor: JULIA Troponin-I High Sensitivity Reviewed date:08/23/2023 08:26:16 AM Interpretation: Performing Lab:[facility], [address] [place] [phone] Notes/Report: Troponin-I High Sensitivity 2.8 <3.5-35.0 ng/L The Sams high sensitivity Troponin-I results should be used in conjunction with other diagnostic information such as ECG, clinical observations and information, and patient symptoms to aid in the diagnosis of [place]. Pathology Reviewed date:08/25/2023 12:49:07 PM Interpretation: Performing Lab:[facility], [address] [place] [phone] Notes/Report: UA CC w/rflx Micro + Cult Reviewed date:08/23/2023 12:40:48 PM Interpretation: Performing Lab:[facility], [address] [place] [phone] Notes/Report: [id number] Urine, Clean Catch Color Urine Yellow Appearance Urine Clear PH 5.5 5.0-9.0 Glucose Urine UA Negative Negative mg/dL Urine Blood Negative Negative Specific [place] - Urine >= 1.030 1.005-1.025 Urine Protein Negative Neg-Trace mg/dL Urine Ketones Negative Negative mg/dL Nitrite Urine Negative Negative Leukocyte Esterase Urine Negative Negative Complete Blood Count Auto Di ff Reviewed date:08/25/2023 12:46:54 PM Interpretation: Performing Lab:[facility], [address] [place] [phone] Notes/Report: White Blood Count 16.4 4.8-10.8 X10*3/uL Red Blood Count 4.28 4.60-5.80 X10*6/uL Hemoglobin 13.0 14.0-18.0 g/dl Hematocrit 37.1 42.0-52.0 % Mean Corpuscular Volume 86.7 80.0-98.0 fL Mean Corpuscular Hemoglobin 30.4 27.0-33.0 pg Mean Corpuscular HGB Conc 35.0 31.0-36.0 g/dl Red Cell Distribution Width 12.2 11.0-16.0 % Platelet Count 220 160-400 X10*3/uL Mean Platelet Volume 9.6 9.4-12.4 fL Neutrophils Percent Auto 72.4 45-73 % Imm Gran Pct Auto 0.4 0.0-0.4 % Lymphocytes Percent Auto 17.4 20-40 % Monocytes Percent Auto 9.4 2-11 % Eosinophils Percent Auto 0.2 0-4 % Basophils Percent Auto 0.2 0-2 % NRBC Pct Auto 0.0 0.0-0.2 /100WBC Neutrophils Absolute Auto 11.9 2.0-8.3 x10*3/u L Imm Gran Abs Auto 0.06 0.00-0.03 X10*3/uL Lymphocytes Absolute Auto 2.9 1.2-4.9 X10*3/u L Monocytes Absolute Auto 1.5 0.1-1.2 X10*3/uL Eosinophils Absolute Auto 0.0 0.0-0.4 X10*3/u L Basophils Absolute Auto 0.0 0.0-0.2 X10*3/uL NRBC Abs Auto 0.000 0.0-0.012 X10*3/uL White Blood Count 16.4 4.8-10.8 X10*3/uL Red Blood Count 4.28 4.60-5.80 X10*6/uL Hemoglobin 13.0 14.0-18.0 g/dl Hematocrit 37.1 42.0-52.0 % Mean Corpuscular Volume 86.7 80.0-98.0 fL Mean Corpuscular Hemoglobin 30.4 27.0-33.0 pg Mean Corpuscular HGB Conc 35.0 31.0-36.0 g/dl Red Cell Distribution Width 12.2 11.0-16.0 % Platelet Count 220 160-400 X10*3/uL Mean Platelet Volume 9.6 9.4-12.4 fL Neutrophils Percent Auto 72.4 45-73 % Imm Gran Pct Auto 0.4 0.0-0.4 % Lymphocytes Percent Auto 17.4 20-40 % Monocytes Percent Auto 9.4 2-11 % Eosinophils Percent Auto 0.2 0-4 % Basophils Percent Auto 0.2 0-2 % NRBC Pct Auto 0.0 0.0-0.2 /100WBC Neutrophils Absolute Auto 11.9 2.0-8.3 x10*3/u L Imm Gran Abs Auto 0.06 0.00-0.03 X10*3/uL Lymphocytes Absolute Auto 2.9 1.2-4.9 X10*3/u L Monocytes Absolute Auto 1.5 0.1-1.2 X10*3/uL Eosinophils Absolute Auto 0.0 0.0-0.4 X10*3/u L Basophils Absolute Auto 0.0 0.0-0.2 X10*3/uL NRBC Abs Auto 0.000 0.0-0.012 X10*3/uL SLIDE REVIEW Reviewed date:08/25/2023 12:46:22 PM Interpretation: Performing Lab:[facility], [address] [place] [phone] Notes/Report: SLIDE REVIEW VERIFIED Liver Panel Reviewed date:09/30/2023 12:30:38 PM Interpretation: Performing Lab:[facility], [address] [place] [phone] Notes/Report: Bilirubin Total 0.6 0.0-1.0 mg/dL Bilirubin Direct 0.3 0.0-0.5 mg/dL Aspartate Amino Transferase 20 5-37 U/L Alanine Aminotransferase 30 0-40 U/L Total Protein 7.0 6.5-8.0 g/dL Albumin Level 4.3 3.5-5.0 g/dL Alkaline Phosphatase 48 39-117 U/L Lipid Panel Reviewed date:09/30/2023 12:30:48 PM Interpretation: Performing Lab:[facility], [address] [place] [phone] Notes/Report: Triglycerides 65 <150 mg/dL Desirable Triglyceride: less than 150 mg/dL Borderline High Triglyceride 150-199 mg/dL High Triglyceride: 200-499 mg/dL Very High Triglyceride: greater than or equal to 5OO mg/dL Cholesterol 135 <200 mg/dL Desirable Cholesterol: less than 200 mg/dL Borderline High Cholesterol: 200-239 mg/dL High Cholesterol: greater than 239 mg/dL LDL Cholesterol Calculated 74 <100 mg/dL Desirable LDL: less than 100 mg/dL Near Optimal/Above Optimal LDL: 110-129 mg/dL Borderline High LDL: 130-159 mg/dL High LDL: 160-189 mg/dL Very High LDL: greater than or equal to 190 mg/dL HDL Cholesterol 48 >40 mg/dL Desirable HDL: greater than 40 mg/dL Note: This HDL assay may give artificially low results in patients with liver disease. XR chest 2V Reviewed date:10/28/2023 12:16:39 PM Interpretation: Performing Lab: Notes/Report: [address] [address] XRay Report Signed Patient: Jose Rivera MR#: [id number] : 1975 Acct:[id number] Age/Sex: 48 / M ADM Date: 10/24/23 Loc: ERIN Attending Dr: Ab Barraza MD Ordering Physician: Ab Barraza MD Date of Service: 10/24/23 Procedure(s): XR chest 2V Accession Number(s): [id number] cc: Ab Barraza MD EXAMINATION: XR CHEST CLINICAL INFORMATION: Chest tightness COMPARISON: None available. TECHNIQUE: 2 views of the chest were obtained. The most inferior posterior aspect of a posterior costophrenic sulcus is excluded from the film. FINDINGS: No airspace consolidation or pneumothorax seen. Hilar regions and pulmonary vascularity unremarkable. No evidence for pneumomediastinum. The visualized pleural surfaces appear to be clear. Bony thorax appears unremarkable. XR/XR chest 2V IMPRESSION: No evidence for acute process. Dictated By: Kenyon Mayo Signed By: <Electronically signed by Kenyon Mayo in OV> 10/28/23 0804 DD/ 1559 TD/TT: [employer] Professor: Complete Blood Count Auto Lisbet ff Reviewed date:11/28/2023 04:51:06 PM Interpretation: Performing Lab:[facility], [address] [place] [phone] Notes/Report: White Blood Count 9.6 4.8-10.8 X10*3/uL Red Blood Count 4.99 4.60-5.80 X10*6/uL Hemoglobin 14.7 14.0-18.0 g/dl Hematocrit 43.1 42.0-52.0 % Mean Corpuscular Volume 86.4 80.0-98.0 fL Mean Corpuscular Hemoglobin 29.5 27.0-33.0 pg Mean Corpuscular HGB Conc 34.1 31.0-36.0 g/dl Red Cell Distribution Width 12.7 11.0-16.0 % Platelet Count 338 160-400 X10*3/uL Mean Platelet Volume 9.7 9.4-12.4 fL Neutrophils Percent Auto 47.5 45-73 % Imm Gran Pct Auto 0.3 0.0-0.4 % Lymphocytes Percent Auto 38.6 20-40 % Monocytes Percent Auto 7.6 2-11 % Eosinophils Percent Auto 5.3 0-4 % Basophils Percent Auto 0.7 0-2 % NRBC Pct Auto 0.0 0.0-0.2 /100WBC Neutrophils Absolute Auto 4.6 2.0-8.3 x10*3/u L Imm Gran Abs Auto 0.03 0.00-0.03 X10*3/uL Lymphocytes Absolute Auto 3.7 1.2-4.9 X10*3/u L Monocytes Absolute Auto 0.7 0.1-1.2 X10*3/uL Eosinophils Absolute Auto 0.5 0.0-0.4 X10*3/u L Basophils Absolute Auto 0.1 0.0-0.2 X10*3/uL NRBC Abs Auto 0.000 0.0-0.012 X10*3/uL Prothrombin Time INR Reviewed date:11/28/2023 04:50:48 PM Interpretation: Performing Lab:[address] [phone] Notes/Report: Prothrombin Time 11.4 11.1-13.3 SEC INTERNATIONAL NORM RATIO 0.9 0.9-1.1 INTERNATIONAL NORMALIZED RATIO (INR) REFERENCE RANGES Reference Range For patients not on anticoagulant therapy: 0.9 - 1.1 INR ranges for oral anticoagulant therapy: For prevention and treatment of venous thrombosis and pulmonary embolism: 2.0 - 3.0 For acute myocardial infarction with aspirin therapy: 2.0 - 3.0 For acute myocardial infarction without aspirin therapy: 3.0 - 4.0 For patients with mechanical prosthetic heart valves: 2.5 - 3.5 Basic Metabolic Panel Reviewed date:11/29/2023 12:51:39 PM Interpretation: Performing Lab:[address] [phone] Notes/Report: Sodium 143 135-145 mmol/L Potassium 4.0 3.3-5.1 mmol/L Chloride 108 96-108 mmol/L Carbon Dioxide 24 22-29 mmol/L Anion Gap 15 12-20 Blood Urea Nitrogen 17 9-16 mg/dL Creatinine 0.94 0.5-1.4 mg/dL Estimated Glomerular Filt Rate > 60 NOTE: For -Azerbaijani individuals, multiply the result by 1.210. Chronic Kidney Disease: Estimated GFR < 60 mL/min/1.73m2 Severe Kidney Disease: Estimated GFR < 15 mL/min/1.73m2 Glucose Random 95 60-115 mg/dL Calcium 9.9 8.4-10.2 mg/dL Hold Gold Reviewed date:12/29/2023 06:48:32 PM Interpretation: Performing Lab:[address] [phone] Notes/Report: Hold Gold See Note Specimen held untested for 24 hours; Call to request Chemistry testing. Liver Panel Reviewed date:12/29/2023 06:47:47 PM Interpretation: Performing Lab:[facility], [address] [place] [phone] Notes/Report: Bilirubin Total 0.7 0.0-1.0 mg/dL Bilirubin Direct 0.3 0.0-0.5 mg/dL Aspartate Amino Transferase 38 5-37 U/L Alanine Aminotransferase 40 0-40 U/L Total Protein 6.8 6.5-8.0 g/dL Albumin Level 4.3 3.5-5.0 g/dL Alkaline Phosphatase 46 39-117 U/L Lipid Panel with Reflex Reviewed date:12/30/2023 08:35:56 AM Interpretation: Performing Lab:[facility], [address] [place] [phone] Notes/Report: Triglycerides 75 <150 mg/dL Desirable Triglyceride: [...] low results in patients with liver disease. XR ankle LT min 3V Reviewed date:01/26/2024 08:13:21 AM Interpretation: Performing Lab: Notes/Report: [address] [address] XRay Report Signed Patient: Jose Rivera MR#: [id number] : 1975 Acct:[id number] Age/Sex: 48 / M ADM Date: 01/23/24 Loc: ERIN Attending Dr: Ab Barraza MD Ordering Physician: Ab Barraza MD Date of Service: 01/23/24 Procedure(s): XR ankle LT min 3V Accession Number(s): [id number] cc: Ab Barraza MD EXAMINATION: XR ANKLE, [...] Alice English MD 01/24/2024 04:47 PM EDT RP Dictated By: Alice English MD Signed By: <Electronically signed by Alice English MD in [place]> 01/24/24 1647 DD/ 8 TD/TT: 01/23/24924 [employer] Professor: PN REASON FOR REFERRAL Reason shortness of breath Dr. Barraza and Dr. Del Rosario spoke and Dr. Del Rosario had agreed to see patient Diagnosis 1 Shortness of breath (R06.02) Referral Organization Ab Barraza MD Referring Provider First Name Ab Referring Provider Last Name Madi Referring Provider Speciality Internal edicine Referred Provider ALMA DEL ROSARIO Referred Provider Specialty Cardiology General Notes Mallory Morton 12:52:46 PM EST > info faxed left message for Naomi to call with an appt , Mallory Morton 05/16/2023 12:16:03 PM EST > nlte is scanned in chart Referral Priority Routine Referral Appointment Date 05/11/2023 Reason bilateral shouder pa in please eval and treat for PT Diagnosis 1 Shoulder joint dysfu nction (M25.9) Referral Organization Ab Barraza MD Referring Provider First Name Ab Referring Provider Last Name Madi Referring Provider Speciality Internal M edicine Referred Provider [facility] Referred Provider Specialty Physical The rapist General Notes Mallory Morton 09:18:59 AM EDT > PT order given to patient, he will make his own appt , Mallory Morton 10/28/2023 11:58:05 AM EDT > spoke with patient regrarding referral he will be calling to make his own appt Referral Priority Routine MEDICATIONS Medication SIG (Take, Route, Frequency, Duration) [...] MOUTH EVERY DAY FOR 30 DAYS Active Cyclobenzaprine HCl 5 MG 1 tablet at bed time as needed Orally twice a day for 10 days 01/26/2024 Active IMMUNIZATIONS Vaccine Route Administration Date Status Comme nts TDaP IM Intramuscular 01/25/2012 Administered Flu Vaccine Unknown 03/07/2014 Administered at work Fluarix Quadrivalent IM Intramuscular 02/13/2018 Administe red SARS-COV-2 Pfizer Unknown 08/13/2020 Administered SARS-COV-2 Pfizer Unknown 09/03/2020 Administered Flu Vaccine Unknown 07/21/2015 Refused Fluarix Quadrivalent Unknown 06/11/2016 Refused Fluarix Quadrivalent Unknown 06/18/2021 Refused Fluarix Quadrivalent Unknown 06/24/2022 Refused Fluarix Quadrivalent - 150 Unknown 12/29/2023 Refused Fluarix Quadrivalent - 150 Unknown 01/23/2024 Refused Tetanus Unknown 01/25/2012 Pending SOCIAL HISTORY Tobacco Use: Social History Observation Description Date Details (start date - stop date) Former Smoker NA - NA Sex Assigned At : Social History Observation Description Sex Assigned At Unknown Tobacco Use/Smoking Question Answer Notes Patient is a former smoker How long has it been since y ou last smoked? > 10 years Additional Findings: Tobacco Non-User Fo rmer smoker, currently using no form of tobacco Alcohol Screen Question Answer Notes Did you have a drink contain ing alcohol in the past year? Yes How often did you have a dri nk containing alcohol in the past year? Monthly or less (1 point) How many drinks did you have on a typical day when you were drinking in the past year? 1 or 2 drinks (0 point) How often did you have 6 or more drinks on one occasion in the past year? Never (0 point) Points 1 Interpretation Negative PROBLEMS Problem Type ICD Code Onset Dates Problem Status W/U Status Risk SNOMED Code Notes Problem Lumbar disc disease (M51.9) Active confirmed 147171746 Problem Essential hypertension (I10) Active confirmed Essential hyper tension (13616950) Problem Mild intermittent asthma without complication (J45.20) Active confirmed 310662523 Problem Labile hypertension (I10) Active confirmed Labile essentia l hypertension (127987649) Problem Other elevated white blood cell (WBC) count (D72.828) Active confirmed 754448775 Problem Leukocytosis, unspecified type (D72.829) Active confirmed 604929647 Problem Dysthymia (F34.1) Active confirmed Dysthymia (27579561) Problem Tonsillith (J35.8) Active confirmed 0322478 Problem Elevated cholesterol (E78.00) Active confirmed Pure hypercholesterolemia (513953037) Problem [place] (obstructive sleep apnea) (G47.33) Active confirmed 90037382 Problem History of heart artery stent (Z95.5) Active confirmed 187988902 VITAL SIGNS Blood pressure diastolic 66 mm Hg 01/23/2024 Height 70 in 01/23/2024 Blood pressure systolic 112 mm Hg 01/23/2024 Weight 216 lbs 01/23/2024 BMI 30.99 kg/m2 01/23/2024 Encounters Encounter Location Date Provider Diagnosis Ab Barraza MD [address] [place] [address] [id number] 06/28/2023 Ab Barraza Tightness in chest R07.89 ; Annual physical exam Z00.00 ; Elevated cholesterol E78.00 ; Labile hypertension I10 and Mild intermittent asthma without complication J45.20 Ab Barraza MD [address] [place] [address] [id number] 10/04/2023 Ab Barraza Shoulder joint dysfunction M25.9 ; Elevated cholesterol E78.00 ; Essential hypertension I10 and Chest discomfort R07.89 Ab Barraza MD [address] [place] [address] [id number] 06/21/2023 Ab Barraza Blood tests for routine general physical examination Z00.00 ; Elevated cholesterol E78.00 ; Labile hypertension I10 and Leukocytosis, unspecified type D72.829 Ab Barraza MD [address] [place] [address] [id number] 09/30/2023 Ab Barraza Elevated cholesterol E78.00 Ab Barraza MD [address] [place] [address] [id number] 12/29/2023 Ab Barraza Elevated cholesterol E78.00 Ab Barraza MD [address] [place] [address] [id number] 04/26/2023 Ab Barraza Dysthymia F34.1 ; Unspecified disorder of synovium and tendon, right shoulder M67.911 and Shortness of breath R06.02 Ab Barraza MD [address] [place] [address] [id number] 09/30/2023 Ab Barraza Muscle strain T14.8XXA Ab Barraza MD [address] [place] [address] [id number] 11/18/2023 Ab Barraza Essential hypertension I10 and Chest discomfort R07.89 Ab Barraza MD [address] [place] [address] [id number] 01/23/2024 Ab Barraza Essential hypertension I10 ; Sprain of other ligament of left ankle, initial encounter S93.492A and History of heart artery stent Z95.5 Ab Barraza MD [address] [place] [address] [id number] 08/30/2023 Ab Barraza MD [address] [place] [address] [id number] 10/24/2023 Ab Barraza Cough R05.9 Ab Barraza MD [address] [place] [address] [id number] 11/28/2023 Ab Barraza MD [address] [place] [address] [id number] 12/13/2023 Ab Barraza MD [address] [place] [address] Drive [address] [place] [address] [id number] 01/26/2024 Ab Barraza ASSESSMENTS Encounter Date Diagnosis Assessment Notes Treatment Notes Treatment Clinical Notes 06/28/2023 Annual physical exam (ICD-10 - Z00.00) labs reviewed and discussed with pt 06/28/2023 Tightness in chest (ICD-10 - R07.89) had abnormal est so it still may be coronary disease. he doesn't want to go for the cat scan due to the cost. i still feel that he should get that 10/04/2023 Elevated cholesterol (ICD-10 - E78.00) well controlled, will continue current regiment 10/04/2023 Shoulder joint dysfunction (ICD-10 - M25.9) send to physical therapy at [facility] order given to patient he will make his own appt 06/21/2023 Elevated cholesterol (ICD-10 - E78.00) 06/21/2023 Blood tests for routine general physical examination (ICD-10 - Z00.00) 09/30/2023 Elevated cholesterol (ICD-10 - E78.00) 12/29/2023 Elevated cholesterol (ICD-10 - E78.00) 04/26/2023 Dysthymia (ICD-10 - F34.1) feels he would benefit from counselling but can't afford the copay. 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 no hernia there, patient verbalized understanding of medication and directions for use 11/18/2023 Chest discomfort (ICD-10 - R07.89) going to try nitro and see if it helps 11/18/2023 Essential hypertension (ICD-10 - I10) stable, will continue current regiment 01/23/2024 Sprain of other ligament of left ankle, initial encounter (ICD-10 - S93.492A) ORDER PRINTED AND GIVEN TO JOSE, pending diagnostic testing 01/23/2024 Essential hypertension (ICD-10 - I10) doing well on meds, will continue current regiment 06/28/2023 Elevated cholesterol (ICD-10 - E78.00) 10/04/2023 Essential hypertension (ICD-10 - I10) doing well, will continue current regiment and will continue to monitor 06/21/2023 Labile hypertension (ICD-10 - I10) 04/26/2023 Unspecified disorder of synovium and tendon, right shoulder (ICD-10 - M67.911) showed exercises, will cntinue to monitor 01/23/2024 History of heart artery stent (ICD-10 - Z95.5) doing well and is getting a lot of exercise, will continue current regiment 10/24/2023 Cough (ICD-10 - R05.9) Order faxed to [facility] Pat Rg, patient notified. 06/28/2023 Labile hypertension (ICD-10 - I10) doing well now 10/04/2023 Chest discomfort (ICD-10 - R07.89) will see if cardiology can move up his cat scan/called [facility], not able to get him in sooner his appt is Nov 23. patient will also try calling to see if there is a cx 06/21/2023 Leukocytosis, unspecified type (ICD-10 - D72.829) 04/26/2023 Shortness of breath (ICD-10 - R06.02) order faxed to [facility] CS dept, pending diagnostic testing 06/28/2023 Mild intermittent asthma without complication (ICD-10 - J45.20) has had to use inhaler this month 11/18/2023 Other Total time spen t on the date of the encounter is 35 minutes including both face to face time spent and time spent reviewing documentation, and counseling the patient. PLAN OF TREATMENT Pending Test Test Name Order Date Electrocardiogram (EKG) 02/04/2017 Electrocardiogram (EKG) 02/17/2018 MRA BRAIN NO CONTRAST 05/16/2020 CA stress test 04/26/2023 Next Appt Details Provider Name:Ab mckeonr, 06/22/2024 07:30:00 AM, [address] [place] [address], [address], [place], [place], [phone], Provider Name:Ab Jackson ier, 06/29/2024 09:30:00 AM, [address] [place] [address], [address] [facility], [place], [place], [phone], Insurance Providers Payer Name Payer Address Payer Phone Subscriber Number Group Number Insured Name Patient Relationship to Insured Coverage Start Date Coverage End Date [employer] [address] [place], [place] [phone] [id number] Jose Rivera Self - patient is the insured MEDICAL (GENERAL) HISTORY Medical History History ICD Code chronic sinusitis colonoscopy 06/28/22 repeat 10 y
== END 2024-04-09 10:04 | disposition home or self-care (01) ==
PROVIDERS: PCP Internal Medicine; Visit Provider Internal Medicine
DX: I25.10 Atherosclerotic heart disease of native coronary artery without angina pectoris (principal); Z95.5 Presence of coronary angioplasty implant and graft; E78.5 Hyperlipidemia, unspecified; I10 Essential (primary) hypertension
CPT/HCPCS: 99214

== ENCOUNTER → 2024-04-09 09:34 | Outpatient (BNVA) | payer BC, SELFPAY | PROVIDERS: PCP Internal Medicine; Visit Provider Internal Medicine ==

== ENCOUNTER 2024-06-22 10:19 | Outpatient (REF) | payer BC, SELFPAY ==
[2024-06-22 10:23] LABS: MANUAL DIFF FLAG NO
[2024-06-22 10:54] LABS: Basophils Percent Auto 0.4 % (0-2); Eosinophils Absolute Auto 0.6 X10*3/uL (0.0-0.4); Hematocrit 41.7 % (42.0-52.0); Hemoglobin 14.5 g/dl (14.0-18.0); Imm Gran Abs Auto 0.02 X10*3/uL (0.00-0.03); Imm Gran Pct Auto 0.2 % (0.0-0.4); Lymphocytes Absolute Auto 3.5 X10*3/uL (1.2-4.9); Lymphocytes Percent Auto 37.2 % (20-40); Mean Corpuscular HGB Conc 34.8 g/dl (31.0-36.0); Mean Corpuscular Hemoglobin 30.2 pg (27.0-33.0); Mean Corpuscular Volume 86.9 fL (80.0-98.0); Mean Platelet Volume 9.7 fL (9.4-12.4); Monocytes Absolute Auto 0.7 X10*3/uL (0.1-1.2); Monocytes Percent Auto 7.3 % (2-11); Neutrophils Absolute Auto 4.6 x10*3/uL (2.0-8.3); Neutrophils Percent Auto 48.9 % (45-73); Platelet Count 293 X10*3/uL (160-400); Red Cell Distribution Width 12.4 % (11.0-16.0); White Blood Count 9.4 X10*3/uL (4.8-10.8)
[2024-06-22 11:03] LABS: Appearance Urine Clear; Color Urine Yellow; Glucose Urine UA Negative (Negative); Leukocyte Esterase Urine Negative (Negative); Nitrite Urine Negative (Negative); PH 5.5 (5.0-9.0); Specific Gravity - Urine 1.015 (1.005-1.025); Urine Blood Negative (Negative); Urine Ketones Negative (Negative); Urine Protein Negative (Neg-Trace)
[2024-06-22 11:10] LABS: Bacteria Urine None Seen (None Seen); Hyaline Casts Urine 0-2 /LPF (0-2); RBC Urine 0-2 /HPF (0-2); Squamous Epithelial Cell Urine 0-2 /HPF (0-2); WBC Urine 0-5 /HPF (0-5)
[2024-06-22 11:28] LABS: Albumin Level 4.4 g/dL (3.5-5.0); Alkaline Phosphatase 45 U/L (39-117); Anion Gap 13 (12-20); Aspartate Amino Transferase 40 U/L (5-37); Bilirubin Total 0.7 mg/dL (0.0-1.0); Blood Urea Nitrogen 18 mg/dL (9-16); Calcium 9.4 mg/dL (8.4-10.2); Carbon Dioxide 25 mmol/L (22-29); Chloride 106 mmol/L (96-108); Cholesterol 139 mg/dL (<200); Estimated Glomerular Filt Rate > 60; Glucose Fasting 90 mg/dL (60-99); HDL Cholesterol 46 mg/dL (>40); LDL Cholesterol Calculated 79 mg/dL (<100); Potassium 4.4 mmol/L (3.3-5.1); Sodium 140 mmol/L (135-145); Total Protein 7.4 g/dL (6.5-8.0); Triglycerides 70 mg/dL (<150)
--- OUTSIDE RECORDS SUMMARY | 2024-06-22 11:35 | XMS_ITS ---
Author Organization Ab Barraza MD Address [address] [place], [place] [phone] Care Team Providers Care Business Transformation Manager Name Role Phone Ab Barraza Primary Care Provider Results Component Value Reference Range Notes Complete Blood Count Auto Di ff (Not yet reviewed by provider) Interpretation: Performing Lab:[facility], [address] [place] [phone] Notes/Report: White Blood Count 9.4 4.8-10.8 X10*3/uL Red Blood Count 4.80 4.60-5.80 X10*6/uL Hemoglobin 14.5 14.0-18.0 g/dl Hematocrit 41.7 42.0-52.0 % Mean Corpuscular Volume 86.9 80.0-98.0 fL Mean Corpuscular Hemoglobin 30.2 27.0-33.0 pg Mean Corpuscular HGB Conc 34.8 31.0-36.0 g/dl Red Cell Distribution Width 12.4 11.0-16.0 % Platelet Count 293 160-400 X10*3/uL Mean Platelet Volume 9.7 9.4-12.4 fL Neutrophils Percent Auto 48.9 45-73 % Imm Gran Pct Auto 0.2 0.0-0.4 % Lymphocytes Percent Auto 37.2 20-40 % Monocytes Percent Auto 7.3 2-11 % Eosinophils Percent Auto 6.0 0-4 % Basophils Percent Auto 0.4 0-2 % NRBC Pct Auto 0.0 0.0-0.2 /100WBC Neutrophils Absolute Auto 4.6 2.0-8.3 x10*3/u L Imm Gran Abs Auto 0.02 0.00-0.03 X10*3/uL Lymphocytes Absolute Auto 3.5 1.2-4.9 X10*3/u L Monocytes Absolute Auto 0.7 0.1-1.2 X10*3/uL Eosinophils Absolute Auto 0.6 0.0-0.4 X10*3/u L Basophils Absolute Auto 0.0 0.0-0.2 X10*3/uL NRBC Abs Auto 0.000 0.0-0.012 X10*3/uL UA ClnCatch+Micro w/rflx Cul t (Not yet reviewed by provider) Interpretation: Performing Lab:[facility], [address] [place] [phone] Notes/Report: Urine, Clean Catch Color Urine Yellow Appearance Urine Clear PH 5.5 5.0-9.0 Glucose Urine UA Negative Negative mg/dL Urine Blood Negative Negative Specific [place] - Urine 1.015 1.005-1.025 Urine Protein Negative Neg-Trace mg/dL Urine Ketones Negative Negative mg/dL Nitrite Urine Negative Negative Leukocyte Esterase Urine Negative Negative RBC Urine 0-2 0-2 /HPF WBC Urine 0-5 0-5 /HPF Squamous Epithelial Cell Urine 0-2 0-2 /HPF Bacteria Urine None Seen None Seen Hyaline Casts Urine 0-2 0-2 /LPF REASON FOR VISIT yearly labs Encounters Encounter Location Date Provider Diagnosis Ab Barraza MD [address] [facility] [address] [place], [place] [phone] 06/22/2024 Ab Barraza Blood tests for routine general physical examination Z00.00 ; Leukocytosis, unspecified type D72.829 ; Labile hypertension I10 and Elevated cholesterol E78.00 Assessments Encounter Date Diagnosis (ICD Code) Assessment Notes Treatment Notes Treatment Clinical Notes Section Notes 06/22/2024 Blood tests for routine general physical examination (ICD-10 - Z00.00) 06/22/2024 Leukocytosis, unspecified type (ICD-10 - D72.829) 06/22/2024 Labile hypertension (ICD-10 - I10) 06/22/2024 Elevated cholesterol (ICD-10 - E78.00) Plan Of Treatment Pending Test Test Name Order Date Complete Blood Count Auto Diff 03/07/202 5 Comprehensive [place]. Panel Fast 5 Lipid Panel 06/22/2024 PSA,Total (Free>4and<10) 06/22/2024 UA ClnCatch+Micro w/rflx Cult 06/22/2024 Next Appt Details Provider Name:Ab Leandra Jackson ier, 06/29/2024 09:30:00 AM, [address] [facility], Suite [facility], [place], [place], [phone], Progress Notes * Jose OGDENDOB:1975 ( 49 yo M)Acc No.[id number]:06/22/2024 Progress Note Patient:?Jose OGDEN Provider:?Ab Barraza MD :1975???Age:49 Y???Sex:Male Bao e:06/22/2024 Address:[address] [place], [place] [phone] Subjective: * Chief Complaints: * ???1. Yearly labs. * Medical History:? Objective: * Vitals:? Assessment: * Assessment: 1.?Blood tests for routine g eneral physical examination - Z00.00 (Primary)???2.?Leukocytosis, unspecified type - D72.829???3.?Labile hypertension - I10???4.?Elevated cholesterol - E78.00??? Plan: * Treatment: 2.?Leukocytosis, unspecified type?LAB: Complete Blood Count Auto Diff (Collection Date & Time - 06/22/2024 07:30 AM) ?LAB: Comprehensive [place]. Panel Fast ?LAB: Lipid Panel ?LAB: PSA,Total (Free>4and<10) ?LAB: UA ClnCatch+Micro w/rflx Cult (Collection Date & Time - 06/22/2024 07:30 AM) 3.?Labile hypertension?LAB: Complete Blood Count Auto Diff (Collection Date & Time - 06/22/2024 07:30 AM) ?LAB: Comprehensive [place]. Panel Fast ?LAB: Lipid Panel ?LAB: PSA,Total (Free>4and<10) ?LAB: UA ClnCatch+Micro w/rflx Cult (Collection Date & Time - 06/22/2024 07:30 AM) 4.?Elevated cholesterol?LAB: Complete Blood Count Auto Diff (Collection Date & Time - 06/22/2024 07:30 AM) ?LAB: Comprehensive [place]. Panel Fast ?LAB: Lipid Panel ?LAB: PSA,Total (Free>4and<10) ?LAB: UA ClnCatch+Micro w/rflx Cult (Collection Date & Time - 06/22/2024 07:30 AM) * Procedure Codes:?66594 VENIP UNCT, ROUTINE* * * The named appointment provid er may or may not be the originator of this progress note, and it is not deemed complete until electronically signed by the appointment provider. Sign off status: Pending * Provider:?Ab Barraza MD Date:?0 06/22/2024 Generated for Anali allen/Zuleika/Angelitosmitting on:?06/22/2024 11:35 AM EST
--- OUTSIDE RECORDS SUMMARY | 2024-06-22 11:35 | XMS_ITS ---
Author Organization Ab Barraza MD Address [address] [place], [place] [phone] Care Team Providers Care Business Line Manager Name Role Phone Ab Barraza Primary Care Provider [phone] Allergies No Known Allergies Results Component Value Reference Range Notes XR ankle LT min 3V Reviewed date:01/26/2024 08:13:21 AM Interpretation: Performing Lab: Notes/Report: [address] [address] XRay Report Signed Patient: Jose Ogden MR#: [id number] : 1975 Acct:[id number] Age/Sex: 48 / M ADM Date: 01/23/24 Loc: HO.XRAY Attending Dr: Ab Barraza MD Ordering Physician: Ab Barraza MD Date of Service: 01/23/24 Procedure(s): XR ankle LT min 3V Accession Number(s): [id number] cc: Ab Barraza MD EXAMINATION: XR ANKLE, [...] signed by Alice English MD in OV> 01/24/241646 DD/ 8 TD/TT: 01/23/24924 Sonoscope Operator: IDRIS [address] [address] XRay Report Signed Patient: Jose Ogden MR#: [id number] : 1975 Acct:[id number] Age/Sex: 48 / M ADM Date: 01/23/24 Loc: HO.XRAY Attending Dr: Ab Barraza MD Ordering Physician: Ab Barraza MD Date of Service: 01/23/24 Procedure(s): XR ankle LT min 3V Accession Number(s): [id number] cc: Ab Barraza MD EXAMINATION: XR ANKLE, LEFT CLINICAL INFORMATION: Sprain COMPARISON: None available. TECHNIQUE: AP, lateral, and mor tise views of the left ankle. FINDINGS: No fracture. Alignme nt is anatomic. No erosions. Joint spaces are maintained. Soft tis esmer swelling overlying the lateral malleolus. X R/XR ankle LT min 3V IMPRESSION: Soft tissue swelling overlying the lateral malleolus. Electronically kishan d by: Alice English MD 01/24/2024 04:47 PM EDT Dictated By: Alice English MD Signed By: <Electro nically signed by Alice English MD in OV> 01/24/241646 DD/ 8 TD/TT: 01/23/24924 Sonoscope Operator: IDRIS REASON FOR VISIT 2 MO F/U, check left ankle twisted 1 week ago walking the dog Medications Medication SIG (Take, Route, Frequency, Duration) Notes Start Date End Date Status Lisinopril 10 MG TAKE 1 TABLET BY REJI EVERY DAY FOR 30 DAYS Orally Once [...] MOUTH EVERY DAY FOR 30 DAYS Active Immunizations Vaccine Route Administration Date Status Comme nts Fluarix Quadrivalent - 150 Unknown 01/23/2024 Refused Problems Problem Type SNOMED Code ICD Code Onset Dates Problem Status W/U Status Risk Notes Problem [id number] History of heart artery stent (Z95.5) Active confirmed Vital Signs Blood pressure systolic 112 mm Hg 01/23/20 24 Blood pressure diastolic 66 mm Hg 024 Height 70 in 01/23/2024 Weight 216 lbs 01/23/2024 BMI 30.99 kg/m2 01/23/2024 Encounters Encounter Location Date Provider Diagnosis Ab Barraza MD [address] [place], [place] [phone] 01/23/2024 Ab Barraza Essential hypertension I10 ; Sprain of other ligament of left ankle, initial encounter S93.492A and History of heart artery stent Z95.5 Assessments Encounter Date Diagnosis (ICD Code) Assessment Notes Treatment Notes Treatment Clinical Notes Section Notes 01/23/2024 Essential hypertension (ICD-10 - I10) doing well on meds, will continue current regiment 01/23/2024 Sprain of other ligament of left ankle, initial encounter (ICD-10 - S93.492A) ORDER PRINTED AND GIVEN TO debora PAUL diagnostic testing 01/23/2024 History of heart artery stent (ICD-10 - Z95.5) doing well and is getting a lot of exercise, will continue current regiment Plan Of Treatment Medication Medication Name Sig Start Date Stop [...] regiment Next Appt Details Provider Name:Ab weaver, 06/29/2024 09:30:00 AM, [address], [address], [place], [place], [phone], Progress Notes * Hazel OGDEN:1975 ( 48 yo M)Acc No.[id number]:01/23/2024 Progress Notes Patient:?Jose Ogden Provider:?Ab Barraza MD :1975???Age:48 Y???Sex:Male Bao e:01/23/2024 Address:[address] [place] [address] Subjective: * Chief Complaints: * ???2 MO F/UCheck left ankle twisted 1 week ago walking the dog * HPI: ???Symptom(s):? patient is a 48 yo male here for 2month follow up visit, twisted left ankle walking dog/ one week ago has been going to cardio rehab. has been getting as high as 160. * ROS:?General/Constitutional:?Denies?Chills.?Denies?Fatigue.?Denies?Fever.?Denies?Headache.?ENT:?Patient denies?decreased sense of smell , any loss of taste , sore throat.?Denies?Sore throat.?Respiratory:?Denies?Cough.?Denies?Shortness of breath at rest.?Denies?Shortness of breath with exertion.?Cardiovascular:?Denies?Chest pain at rest.?Denies?Chest pain with exertion.?Denies?Dizziness.?Denies?Palpitations.?Denies?Shortness of breath.?Gastrointestinal:?Denies?Diarrhea.?Denies?Nausea.?Musculoskeletal:?Patient denies?muscle aches.?Peripheral Vascular:?Patient denies?red and blue toes.? * Medical History:? * Surgical History:? * Hospitalization/Major Diagno stic Procedure:? * Medications:?TakingBrilinta 90 MG Tablet 1 tablet Orally Twice a dayProAir HFA 108 (90 Base) MCG/ACT Aerosol Solution 2 puffs as needed Inhalation every 4 hrsNitrostat 0.4 MG Tablet Sublingual as directed Sublingual every 5 mins for pain r4Osiztczonaom Calcium 40 MG Tablet TAKE 1 TABLET BY MOUTH EVERY DAY FOR 30 DAYS Lisinopril 10 MG Tablet TAKE 1 TABLET BY MOUTH EVERY DAY FOR 30 DAYS Orally Once a dayMedication List reviewed and reconciled with the patientTaking Brilinta 90 MG Tablet 1 tablet Orally Twice a dayTaking ProAir HFA 108 (90 Base) MCG/ACT Aerosol Solution 2 puffs as needed Inhalation every 4 hrsTaking Nitrostat 0.4 MG Tablet Sublingual as directed Sublingual every 5 mins for pain c8Oemlqs Atorvastatin Calcium 40 MG Tablet TAKE 1 TABLET BY MOUTH EVERY DAY FOR 30 DAYS Taking Lisinopril 10 MG Tablet TAKE 1 TABLET BY MOUTH EVERY DAY FOR 30 DAYS Orally Once a dayMedication List reviewed and reconciled with the patient * Allergies:?N.K.D.A.yes[Aller gies Verified] Objective: * Vitals:?Ht: 70, Wt:216, BMI: 30.99, BP:112/66. * ???Past Orders: ???Lab:Liver Panel (Order Da te - 12/29/2023) (Collection Date - 12/29/2023) ? Value Reference Range ?Bilirubin Total 0.7 0.0- 1.0 - mg/dL ?Bilirubin Direct 0.3 0.0 -0.5 - mg/dL ?Aspartate Amino Transferase 38 H 5-37 - U/L ?Alanine Aminotransferase 40 0-40 - U/L ?Total Protein 6.8 6.5-8. 0 - g/dL ?Albumin Level 4.3 3.5-5. 0 - g/dL ?Alkaline Phosphatase 46 39-117 - U/L ???Lab:Lipid Panel with Refl ex (Order Date - 12/29/2023) (Collection Date - 12/29/2023) ? Value Reference Range ?Triglycerides 75 <150 - mg/dL ?Cholesterol 131 <200 - m g/dL ?LDL Cholesterol Calculated 73 <100 - mg/dL ?HDL Cholesterol 43 >40 - mg/dL * Examination: ???General Examination: ?GENERAL APPEARANCE:? alert, well hydrated, in no distress .?SKIN:? good turgor.?HEART:? regular rate and rhythm, no murmurs, rubs, gallops.?LUNGS:? no wheezes, rales, rhonchi, good air movement, clear to auscultation bilaterally.?EXTREMITIES:? abnormal with swelling and tendrness in lat left ankle.? Assessment: * Assessment: 1.?Essential hypertension - I10 (Primary)?2.?Sprain of other ligament of left ankle, initial encounter - S93.492A?3.?History of heart artery stent - Z95.5? Plan: * Treatment: 2.?Sprain of other ligament of left ankle, initial encounter?Imaging: XR ankle LT min 3V Notes: ORDER PRINTED AND GIVEN TO JOSE, pending diagnostic testing??3.?History of heart artery stent? Continue Brilinta Tablet, 90 MG, 1 tablet, Orally, Twice a day.?? Notes: doing well and is getting a lot of exercise, will continue current regiment?? * Immunizations:? Fluarix Quadrivalent - 150 (Not administered - Refused: Patient decision) * Procedure Codes:? * Preventive Medicine:? ??Immunizations:?Influenza?Have you had a flu shot since the most recent December 17??No patient refused at visit today.? * * Sign off status: Completed true * Provider:?Ab Barraza MD Date:?1 Generated for Anali allen/Zuleika/Maria Elenaitting on:?06/22/2024 11:35 AM EST History and Physical Notes * HPI (History of Present Illness) Category Sub-Category Detail Notes Category Not es Symptom(s) patient is a 48 yo male here for 2month follow up visit, twisted left ankle walking dog/ one week ago has been going to cardio rehab. has been getting as high as 160 Examination Category Sub-Category Detail Notes Category Not es General Examination GENERAL APPEARANCE: alert, w ell hydrated, in no distress HEART: regular rate and rhy thm, no murmurs, rubs, gallops LUNGS: no wheezes, rales, r honchi, good air movement, clear to auscultation bilaterally SKIN: good turgor EXTREMITIES: abnormal with swelli ng and tendrness in lat left ankle
--- OUTSIDE RECORDS SUMMARY | 2024-06-22 11:35 | XMS_ITS ---
Author Organization Ab Barraza MD Address [address] [place] [address] [place] [phone] Care Team Providers Care Healthcare Manager Name Role Phone Ab Barraza Primary Care Provider REASON FOR VISIT PULLED BACK OUT Medications Medication SIG (Take, Route, Frequency, Duration) Notes Start Date End Date Status Cyclobenzaprine HCl 5 MG 1 tablet at bed time as needed Orally twice a day for 10 days 01/26/2024 Active Encounters Encounter Location Date Provider Diagnosis Ab Barraza MD [address] [place] [address] [address] [place] [phone] 01/26/2024 Ab Barraza Plan Of Treatment Medication Medication Name Sig Start Date Stop Date Notes Cyclobenzaprine HCl 5 MG 1 tablet at bed time as needed Orally twice a day for 10 days 01/26/2024 Next Appt Details Provider Name:Ab weaver, 06/29/2024 09:30:00 AM, [address] [place] [address], [address] [place] [address], [phone], Progress Notes * Jose OGDENDOB:1975 ( 48 yo M)Acc No.[id number]:01/26/2024 Patient:?Jose Ogden :1975???Age:48 Y???Sex:Male Address:[address] [place] [address], [address] * Refills? Start Cyclobenzaprine HCl Tablet, 5 MG, Orally, 20 Tablet, 1 tablet at bedtime as needed, twice a day, 10 days, Refills=1 * true * Date:? Generated for Anali allen/Zuleika/Alek on:?06/22/2024 11:35 AM EST
--- OUTSIDE RECORDS SUMMARY | 2024-06-22 11:36 | XMS_ITS | Patient Health Record ---
Author Organization [facility] Address [address] [place] [address] Care Team Providers Care Ecommerce Merchandising Manager Name Role Phone Ab Barraza MD Primary Care Provider Tyree Norton Unavailable [phone] Allergies No Known Allergies Reason For Referral No Information Immunizations Vaccine Route Administration Date Status Comme nts Influenza Unknown 05/11/2022 Refused Social History Tobacco Use: Social History Observation Description Date Details (start date - stop date) Never Smoker NA - NA Tobacco Use/Smoking Question Answer Notes Patient is [...] drinks (0 point) Points 0 Interpretation Negative Section Notes: Nonsmoker; no significant al cohol Problems Problem Type SNOMED Code ICD Code Onset Dates Problem Status W/U Status Risk Notes Problem 764558231 Colon cancer screening (Z12.11) Active confirmed Problem Diverticular disease of colon (723939583) Diverticulosis of large intestine without perforation or abscess without bleeding (K57.30) Active confirmed Problem [id number] Preprocedural examination (Z01.818) Active confirmed Plan Of Treatment Future Test Test Name Order Date COLONOSCOPY 05/11/2022 Insurance Providers Payer Name Payer Address Payer Phone Subscriber Number Group Number Insured Name Patient Relationship to Insured Coverage Start Date Coverage End Date BLUE CROSS BLUE [facility] [address] [place] [address] [phone] [id number] ALIN BEVERLY Self - patient is the insured Medical (General) History Medical History History ICD Code Denies [place],DM,CVA,Lung disease,renal dise ase Surgical History Surgery Date(Month/Year) Lumbar discectomy Tear duct surgery
[2024-06-22 11:37] LABS: PSA,Total (Free>4and<10) 0.55 ng/mL (0.00-4.00)
[2024-06-22 11:38] LABS: Alanine Aminotransferase 51 U/L (0-40)
== END 2024-06-22 10:20 | disposition home or self-care (01) ==
LOC: HO.LNP 10:19
PROVIDERS: Visit Provider Internal Medicine
DX: Z00.00 Encounter for general adult medical examination without abnormal findings (principal); D72.820 Lymphocytosis (symptomatic); I10 Essential (primary) hypertension; E78.00 Pure hypercholesterolemia, unspecified; Z12.5 Encounter for screening for malignant neoplasm of prostate
CPT/HCPCS: 80053; 80061; 81001; 84153; 85025

== ENCOUNTER 2024-08-09 13:49 | Outpatient (REF) | payer BC, SELFPAY ==
[2024-08-15 09:13] LABS: Testosterone, Free 15.9 pg/mL (35.0-155.0); Testosterone, Total 164 ng/dL (250-1100)
== END 2024-08-09 13:50 | disposition home or self-care (01) ==
LOC: HO.LNP 13:49
PROVIDERS: Visit Provider Internal Medicine
DX: R53.83 Other fatigue (principal)
CPT/HCPCS: 84402; 84403

== ENCOUNTER 2024-09-13 12:24 | Outpatient (AMB) | payer BC, SELFPAY ==
--- OUTSIDE RECORDS SUMMARY | 2024-09-13 12:27 | XMS_ITS ---
Author Organization Ab Barraza MD Address [address] [place] [address] [place] [phone] Care Team Providers Care Corporate Attorney Name Role Phone Ab Barraza Primary Care Provider REASON FOR VISIT PULLED BACK OUT Medications Medication SIG (Take, Route, Frequency, Duration) Notes Start Date End Date Status Cyclobenzaprine HCl 5 MG 1 tablet at bed time as needed Orally twice a day for 10 days 01/26/2024 Active Encounters Encounter Location Date Provider Diagnosis Ab Barraza MD [address] [place] [address] [address] [place] [phone] 01/26/2024 Ab Barraza Plan Of Treatment Medication Medication Name Sig Start Date Stop Date Notes Cyclobenzaprine HCl 5 MG 1 tablet at bed time as needed Orally twice a day for 10 days 01/26/2024 Next Appt Details Provider Name:Ab weaver, 02/01/2025 07:15:00 AM, [address] [place] [address], [address], [phone], Provider Name:Ab weaver, 02/08/2025 10:00:00 AM, [address] [place] [address], [phone], Provider Name:Ab weaver, 08/06/2025 07:45:00 AM, [address] [place] [address], [address], [phone], Provider Name:Ab weaver, 08/12/2025 10:30:00 AM, [address] [place] [address] Drive, [address], [place], [place], [phone], Progress Notes * Jose OGDENDOB:1975 ( 48 yo M)Acc No.[id number]:01/26/2024 Patient:?Jose Ogden :1975???Age:48 Y???Sex:Male Address:[address] [place] [address], [address] * Refills? Start Cyclobenzaprine HCl Tablet, 5 MG, Orally, 20 Tablet, 1 tablet at bedtime as needed, twice a day, 10 days, Refills=1 * true * Date:? Generated for Anali allen/Zuleika/Maria Elenaitting on:?09/13/2024 12:26 PM EDT
--- NOTE | 2024-09-13 12:31 | A.OFFVIS_ITS ---
Vital Signs 09/13/24 12:33 Height 6 ft Weight 223 lb 8.78 oz BMI 30.3 BP 110/80 Blood Pressure Location Lt brachial Position Sitting Pulse 72 Pulse Source Monitor Intake Visit Reasons: 5 mth fu Academic Advisement Director Required: No Accompanied by: Self / Same As Patient Allergies Iodinated Contrast Media Allergy (Verified 11/28/23 11:06) unknown Medication List - Last Reconciled 09/13/24 by Royer Brunner MD aspirin (Adult Low Dose Aspirin) 81 mg PO DAILY atorvastatin 40 mg PO DAILY clopidogrel (Plavix) 75 mg PO DAILY lisinopril 10 mg PO DAILY multivitamin 1 tab PO DAILY HPI Comments Details: Jose returns for follow-up regarding coronary artery disease. In the past, he has had complaints of chest pains. He had a stress test where he reached 10.8 METS on Avi protocol, but no clear-cut angina. EKG was however, abnormal. This led to a coronary CTA where there was significant LAD disease. Following this, underwent cardiac catheterization and LAD stenting. He has not had any definitive exertional anginal-type symptoms but he has got nonspecific symptoms like hot flashes extra. Apparently testosterone levels were checked and they were found to be low and he is awaiting appointment with urology. He was taking Brilinta in the past and there was question of shortness of breath and hence he is now on Plavix. [facility] Medical History (Updated 12/07/23 @ 13:10 by Royer Brunner MD) HTN (hypertension) Chest pressure Surgical History History of back surgery Family History Mother Heart disease Ovarian cancer Father CHF (congestive heart failure) Social History Household Members: Children Housing: Homeless Do you presently have visiting nurse or other home services: No Alcohol intake: current Alcohol intake frequency: holidays/special occasions only Patient Tobacco Use Status: Never used Tobacco Substance Use Type: Marijuana service: No Review of Systems Const Denies chills, Denies fatigue, Denies fever(s), Denies frequent falls, Denies weakness, Denies weight gain and Denies weight loss ENT Denies dizziness Card Denies chest pain, Denies leg edema, Denies lightheadedness, Denies palpitations, Denies dyspnea and Denies dyspnea on exertion Resp Denies cough, Denies dyspnea and Denies dyspnea on exertion GI Denies hematochezia Musc Denies abnormal gait, Denies muscle weakness, Denies numbness, Denies radiating pain into limb and Denies tingling Neuro Denies abnormal gait, Denies dizziness, Denies frequent falls, Denies numbness, Denies tingling and Denies weakness Endo Denies fatigue and Denies palpitations Physical Exam Vital Signs: Last Vital Signs Pulse 72 09/13/24 12:33 BP 110/80 09/13/24 12:33 BMI result Body Mass Index 30.3 Const General: comfortable and no acute distress Orientation/consciousness: patient oriented x3 HEENT Other: Unremarkable Head: Yes normal to inspection Neck Neck: Yes normal visual inspection Chest Chest palpation & inspection: normal inspection of the chest Resp Auscultation: clear to auscultation bilaterally Cardio Palpation: normal PMI Heart sounds: S1 normal heart sound present, S2 normal heart sound present, no gallops, no murmurs and no rubs GI Palpation (GI): Soft to palpation Back/Spine/Pelvis Other: unremarkable Skin General skin exam: no rashes or lesions noted Neuro General: patient oriented x3 Extrem General: Yes normal to inspection Psych Mental Status: mental status grossly normal Office Procedures EKG Details: EKG with underlying sinus rhythm at 72/Min; no significant ST-T changes; [place] [id number], Complete Assessment & Plan Assessment & Plan (1) Atherosclerotic cardiovascular disease: Code(s): I25.10 - Atherosclerotic heart disease of [place] coronary artery without angina pectoris Category: Medical (2) Stented coronary artery: Code(s): Z95.5 - Presence of coronary angioplasty implant and graft Category: Surgical (3) Other and unspecified hyperlipidemia: Code(s): E78.5 - Hyperlipidemia, unspecified Category: Medical (4) HTN (hypertension): Code(s): I10 - Essential (primary) hypertension Category: Medical Plan Cardiac catheterization data reviewed. 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 Status post PCI to LAD. Minimal disease in the RCA and circumflex. In the echocardiogram, LVEF is 65-70%. Normal filling pattern on Doppler. Va lves are unremarkable. Overall, stable coronary disease. He can continue long-term aspirin. Plavix can also be continued for the foreseeable future. He remains on statins. LDL is much better than before but still not completely ideal. We discussed about adding additional medication like Zetia but he would like to just focus on wait for now. He has borderline abnormal LFTs but they have been like that for now. With regard to low testosterone levels, he is awaiting urology appointment. If indeed he needs replacement for the same, slightly increased risk of cardiac issues but we will need to weigh the risks and benefits. We discussed about this at length today. Follow-up 6 months. Discussion Notes I discussed with the patient the potential diagnosis of low testosterone and the associated symptoms he is experiencing, including hot flashes and difficulty with weight management. The patient was advised to consult a urologist to evaluate structural concerns and hormone levels. We discussed the possible initiation of testosterone replacement therapy, emphasizing the need to weigh the cardiovascular risks against the benefits. I explained the potential side effects and the importance of continued monitoring if therapy commences. For his coronary artery disease management, I recommended continuing Plavix therapy, especially if testosterone treatment is pursued, to offset clotting risks. I advised the patient to maintain his exercise regimen and monitor his dietary sodium intake to manage symptoms of heart discomfort and fluid retention. We reviewed his cholesterol levels, acknowledging improvement but identifying the need for further reduction. I encouraged dietary adjustments and planned for cholesterol reassessment during the next follow-up. Patient was informed and verbally consented to the use of an ambient scribe for clinic note documentation during this visit. Patient Instructions: - Follow up with the urologist for evaluation of low testosterone levels. - Continue taking Plavix as prescribed. - Monitor dietary sodium intake and be cautious of fluid retention. - Maintain daily exercise routine for cardiovascular health. - Schedule follow-up appointments for cholesterol level reassessment. - Seek medical attention if experiencing severe or persistent chest pain. Coding Level of Care Code Est Pt Level 4 (28755) Complex EM visit Add On G2211 Diagnoses Atherosclerotic cardiovascular disease I25.10 Stented coronary artery Z95.5 Other and unspecified hyperlipidemia E78.5 HTN (hypertension) I10 CPT Codes EKG - CPT: 24667-[id number], Complete ([id number])
[2024-09-13 12:33] VITALS: BP 110/80; PULSE 72; BMI 30.3
== END 2024-09-13 13:01 | disposition home or self-care (01) ==
LOC: HO.HCS 12:25
PROVIDERS: PCP Internal Medicine; Visit Provider Internal Medicine
DX: I25.10 Atherosclerotic heart disease of native coronary artery without angina pectoris (principal); Z95.5 Presence of coronary angioplasty implant and graft; E78.5 Hyperlipidemia, unspecified; I10 Essential (primary) hypertension
CPT/HCPCS: 93010; 99214

== ENCOUNTER → 2024-09-13 12:24 | Outpatient (BNVA) | payer BC, SELFPAY | PROVIDERS: PCP Internal Medicine; Visit Provider Internal Medicine | DX: I25.10 Atherosclerotic heart disease of native coronary artery without angina pectoris (principal); I10 Essential (primary) hypertension; E78.5 Hyperlipidemia, unspecified; Z95.5 Presence of coronary angioplasty implant and graft | CPT/HCPCS: 93005 ==